=== PATIENT | female | born 1955 | race Caucasian/White ===

== ENCOUNTER → 2023-07-02 07:39 | Outpatient (REF) | payer MEDICARE, OTHER, SELFPAY | LOC: RCS 07:39 | PROVIDERS: ATTENDING PHYSICIAN Internal Medicine Hematology & Oncology; FAMILY PHYSICIAN Physician Assistant Medical | DX: C50.411 Malignant neoplasm of upper-outer quadrant of right female breast (principal); Z85.850 Personal history of malignant neoplasm of thyroid | CPT/HCPCS: 93306; 93356 ==

== ENCOUNTER → 2023-07-03 12:17 | Outpatient (REF) | payer MEDICARE, OTHER, SELFPAY ==
[2023-07-03 12:47] VITALS: BP 152/88; BP_SYST 86
[2023-07-03] MEDS: ANCEF 10 IV (13:21)
[2023-07-03 15:10] VITALS: BP 147/77
== END ==
LOC: RADI 12:17
PROVIDERS: ATTENDING PHYSICIAN Internal Medicine Hematology & Oncology
DX: C50.411 Malignant neoplasm of upper-outer quadrant of right female breast (principal)
CPT/HCPCS: 36561; 76937; 77001; 99152; 99153; C1788

== ENCOUNTER → 2023-07-10 10:49 | Outpatient (REF) | payer MEDICARE, OTHER, SELFPAY ==
[2023-07-10 12:25] LABS: Hematocrit 43.3 % (37.0-47.0); Hemoglobin 14.8 g/dL (12.0-16.0); Mean Corp Hgb Conc. 34.2 g/dL (33.0-37.0); Mean Corpuscular Hgb 29.7 pg (27.0-31.0); Mean Corpuscular Volume 86.9 fL (81.0-99.0); Mean Platelet Volume 11.1 fL (7.4-10.4); Platelet Count 179 10^3/uL (130-400); Red Blood Cell Count 4.98 10^6/uL (4.20-5.40); Red Cell Dist. Width 13.4 % (11.5-14.5); White Blood Cell Count 1.7 10^3/uL (4.8-10.8)
[2023-07-10 12:55] LABS: ALT (SGPT) 15 U/L (0-35); AST (SGOT) 26 U/L (14-36); Albumin 4.5 g/dl (3.5-5.0); Alkaline Phosphatase 96 U/L (38-126); Blood Urea Nitrogen 22 mg/dl (7-17); Calcium 8.9 mg/dl (8.4-10.2); Carbon Dioxide 30 mmol/L (22-30); Chloride 101 mmol/L (98-107); Glucose 97 mg/dl (70-99); Potassium 4.3 mmol/L (3.5-5.1); Sodium 136 mmol/L (135-145); Total Bilirubin 0.9 mg/dl (0.2-1.3); Total Protein 7.3 g/dl (6.3-8.2); eGFR > 60.00
[2023-07-10 13:40] LABS: Absolute Neutrophils -Man Diff 0.4 10^3/uL (1.4-6.5); Band Neutrophils 0 % (0-3); Eosinophils 8 % (0-6); Lymphocytes 52 % (20-51); Metamyelocytes 2 % (-); Monocytes 10 % (2-9); Platelets Checked Yes; Segmented Neutrophils 28 % (42-75)
[2023-07-10 13:41] LABS: Normal RBC Morphology Yes; Total Cells Counted 100
== END ==
LOC: REG 10:49
PROVIDERS: ATTENDING PHYSICIAN Internal Medicine Hematology & Oncology
DX: C50.411 Malignant neoplasm of upper-outer quadrant of right female breast (principal); Z85.850 Personal history of malignant neoplasm of thyroid
CPT/HCPCS: 36415; 80053; 85025

== ENCOUNTER 2023-07-12 17:08 | Emergency (ER) | payer MEDICARE, OTHER, SELFPAY ==
[2023-07-12 17:21] VITALS: BP 139/93
[2023-07-12 18:11] VITALS: BMI 21.3
--- NOTE | 2023-07-12 18:13 | ED.GENMED ---
Addendum entered and electronically signed by Daniel Berman PA-C 07/15/23 07:53:
Pulmonary urine culture shows greater than 100,000 colony-forming units of E. coli. On Keflex. Sensitivities pending
Original Note:
History of Present Illness
General
Chief Complaint: Dehydration Symptoms
Source: patient and family
Time Seen by Provider: 07/12/23 17:45
Travel History
Have you had any contact with someone who has COVID-19?: No
Do you have any symptoms of coronavirus? Fever > 100 degrees, chills, cough, shortness of breath, sore throat, loss of taste or smell, muscle aches, or headache?: No
History of Present Illness
History of Present Illness:
This patient is a 68-year-old female with a recent diagnosis of breast cancer who is currently on chemotherapy, first dose July 04. She has had to go back to the oncology office for IV fluids twice since she got chemotherapy. Most recently this
was yesterday. She does admit to poor p.o. in the. She says that a few days ago she developed diarrhea which is improving, up to 5 times a day at this point. Before she has bowel movement she does have abdominal cramping, otherwise no abdominal
pain. She denies fever, chills, vomiting, shortness of breath, chest pain. She presents today because she feels generally still very weak and worries that she may be dehydrated. She also notes unpleasant taste when she tries to eat and what
worries if she has thrush. She also noted blood in her stool x 2 today, very small amount, no clots. Patient does not take blood thinning medication.
Past History
Past History
ED Past Medical History: Other (Breast cancer, thyroid cancer, Parkinson's)
ED Past Surgical History: Gynecological
Social History
Tobacco: Non-smoker
Alcohol: None
Drug: None
Personal:
Phy Exam
Physical Exam
Physical Exam:
GENERAL: Alert , in no apparent distress
EYE: pupils equal and reactive
NECK: Supple, no significant adenopathy.
ENT: o/p clr, mm dry, no intraoral thrush noted
CARDIAC: Regular rate and rhythm .
LUNGS: Clear breath sounds bilaterally, no acute respiratory distress, no wheezes/rales/rhonchi
ABDOMEN: Soft, without focal tenderness, no r/g, no cvat
NEUROLOGICAL: Alert and oriented, no focal neuro deficits
SKIN: Warm and dry, skin intact.
MUSCULOSKELETAL: No edema, well perfused.
PSYCH: Normal and appropriate interaction.
Rectal no blood noted, heme positive, AGUSTINA tech present
Course
Orders/Labs/Results
Orders:
Orders
07/12/23 18:05
0.9% Sodium Chloride 1000 ml [Nss] 1,000 ml IV BOLUS
07/12/23 18:22
Urinalysis Reflex To Culture Urgent
Date Specimen was Collected: 07/12/23
Time Specimen was Collected: 18:15
Urine Microscopic Reflex Cult Urgent
Urine Culture Urgent
ИРИНА Source: U
Specimen Description:
Date Specimen was Collected: 07/12/23
Time Specimen was Collected: 18:15
07/12/23 19:33
Complete Blood Count/No Diff Urgent
Comprehensive Metabolic Panel Urgent
07/12/23 22:24
Cephalexin Monohydrate [Keflex] 500 mg PO NOW STA
Abnormal Lab Results
07/12/23 07/12/23
18:22 19:33
WBC 46.6 H* 10^3/uL
(4.8-10.8)
Hct 36.6 L %
(37.0-47.0)
MPV 10.5 H fL
(7.4-10.4)
Sodium 132 L mmol/L
(135-145)
BUN 18 H mg/dl
(7-17)
Alkaline Phosphatase 178 H U/L
(38-126)
Total Protein 6.1 L g/dl
(6.3-8.2)
Urine Ketones 3+ A
(Negative)
Ur Occult Blood Reflex 4+ A
(Negative)
Urine Nitrite (Reflex) Positive A
(Negative)
Urine Bilirubin 1+ A
(Negative)
Leukocyte Esterase Rfl 2+ A
(Negative)
Urine RBC 21-25 A /HPF
(0-2)
Urine WBC (Reflex) 11-15 A /HPF
(0-5)
Urine Bacteria (Reflex) Many A
(Negative)
Urine Albumin (Reflex) 3+ A
(Neg - Trace)
07/12/23 19:33
07/12/23 19:33
Vital Signs
Initial and Last Documented VS:
Initial Vital Signs
Temp Pulse Resp BP Pulse Ox
97.9 F 116 20 139/93 97
07/12/23 17:21 07/12/23 17:21 07/12/23 17:21 07/12/23 17:21 07/12/23 17:21
Last Documented Vital Signs
Temp Pulse Resp BP Pulse Ox
97.9 F 106 31 100/66 94
07/12/23 17:21 07/12/23 22:15 07/12/23 22:15 07/12/23 22:00 07/12/23 22:15
*Critical Care Note
Total Time (30-74mins, 75-104mins- exclusive of procedures): Not Applicable
Update Note
Update Note:
Patient presents to the Emergency Department with ___fatigue, blood in stool
Number and Complexity of Problems Addressed at the Encounter
� Chronic conditions affecting care:
� Acute Exacerbation and/or Progression of Chronic Illness:
� Differential Diagnosis includes: But not limited to electrolyte disorder, dehydration, chemotherapy related symptoms, etc.
Amount and/or Complexity of Data to be Reviewed and Analyzed
� I performed an independent evaluation of and my interpretation is:
EKG:
CT:
Xrays:
Laboratory Studies: Elevated white blood cell count appropriate response to recent stimulating agent, no anemia noted
Other: Urinalysis suggestive of UTI culture pending patient and daughter encouraged to check culture result
� Review of other/old records reveals:
� Clinical information was obtained by an independent historian: Daughter
� Prescriptions/Medications Considered but not given:
� Further testing considered but not performed:
Risk of Complications and/or Morbidity or Mortality of Patient Management
� Social determinants of health affecting care:
� Discussion with other providers (PCP, Hospitalists, Consultants, etc):
� Escalation of care including admission/observation vs risk of discharge considered: Case discussed with Dr. Freedman. Of note, status post IV fluids, patient feels significantly better and would like to go home. She denies any
new complaints and has not had any episodes of diarrhea or blood since arrival. Dr. Freedman aware of history physical, labs, etc. Agrees with plan for discharge, recommends outpatient GI follow-up. All discussed with patient, aware of plan and in
agreement. Antibiotics for presumptive UTI ordered.
ED Attending Note
-
Portions of this chart may have been created with voice recognition software.� Occasional wrong word or��sound alike� substitutions may have occurred due to the inherent limitations of voice recognition software.
Discharge Plan
Departure
Patient Disposition: Home (Routine Discharge)
Date of Disposition: 07/12/23
Time of Disposition: 22:25
Patient with high blood pressure during this ER visit?: Yes
Condition: Good
Discharge Problem:
Dehydration, Acute UTI
Instructions: Dehydration, Adult (DC), Urinary Tract Infection, Adult (DC), BLOOD PRESSURE
Prescriptions:
New
cephalexin 500 mg capsule
500 mg PO BID 7 Days Qty: 14 0RF
No Action
simvastatin 40 mg Tablet
40 mg PO HS
levothyroxine 75 mcg Tablet
75 mcg PO DAILY@0000
losartan 25 mg Tablet
25 mg PO HS
rasagiline 1 mg Tablet
1 mg PO HS
Rytary 36.25-145 mg Capsule, Extended Release
1 cap PO TID
loperamide [Imodium] 2 mg Capsule
2 mg PO DIRECTED
Patient Comments:
07/12/2023, per pt., she takes 2 capsules at the onset of loose stool and then takes one capsule Q2H up to 12 capsules (24 mg) daily. Pt. states she was told to take this med. this way per her chemo. treatment facility.
ondansetron 8 mg Tablet,Disintegrating
8 mg PO Q8H PRN (Reason: nausea/vomiting)
dexamethasone 4 mg Tablet
4 mg PO DIRECTED
Rx Instructions:
07/12/2023, take one tablet 2 days before, 2 days of, and 2 days after chemo treatment.
Referrals:
Abigail Hernández PA-C [Family Provider] -
Magalie Dangelo MD [Active] - Next open appointment
Evan Freedman MD [Active] - Follow up in 2-3 days
Activity Restrictions/Additional Instructions:
IF YOU DEVELOP ABDOMINAL PAIN, PERSISTENT BLEEDING, ANY FEVER, VOMITING, DIZZINESS, CHEST PAIN, TROUBLE BREATHING, OR OTHER WORRISOME SIGNS, GO TO THE ER IMMEDIATELY!
Interventions
Interventions:
*Risk Screen - Suicide Last Done: 07/12/23 18:12
*General Assessment Last Done: 07/12/23 18:12
*Neglect/Abuse Screening Last Done: 07/12/23 18:12
ED- Fall Risk Assessment Last Done: 07/12/23 18:36
*ED COVID-19 Vaccine History Last Done: 07/12/23 18:12
ED- Cardiac Assessment Last Done: 07/12/23 18:36
ED- Neurological Assessment Last Done: 07/12/23 18:36
ED- Pulmonary Assessment Last Done: 07/12/23 18:36
[2023-07-12 18:20] VITALS: BP 147/84
[2023-07-12 18:31] LABS: Urine Albumin 3+ (Neg - Trace); Urine Bilirubin 1+ (Negative); Urine Character Very Cloudy (Clear); Urine Color Yellow; Urine Glucose Negative (Negative); Urine Ketone 3+ (Negative); Urine Leukocyte 2+ (Negative); Urine Nitrite Positive (Negative); Urine Occult Blood 4+ (Negative); Urine Urobilinogen Negative (Neg - 1+)
[2023-07-12 18:44] LABS: Urine Bacteria Many (Negative); Urine Red Blood Cell 21-25 /HPF (0-2)
[2023-07-12 19:00] VITALS: BP 137/77
[2023-07-12 19:34] LABS: Hematocrit 36.6 % (37.0-47.0); Hemoglobin 12.8 g/dL (12.0-16.0); Mean Corpuscular Hgb 29.4 pg (27.0-31.0); Mean Corpuscular Volume 84.1 fL (81.0-99.0); Mean Platelet Volume 10.5 fL (7.4-10.4); Platelet Count 190 10^3/uL (130-400); Red Blood Cell Count 4.35 10^6/uL (4.20-5.40); Red Cell Dist. Width 13.8 % (11.5-14.5)
[2023-07-12] MEDS: NSS 1000 IV (19:42)
[2023-07-12 19:51] LABS: ALT (SGPT) 27 U/L (0-35); AST (SGOT) 30 U/L (14-36); Albumin 3.7 g/dl (3.5-5.0); Alkaline Phosphatase 178 U/L (38-126); Blood Urea Nitrogen 18 mg/dl (7-17); Calcium 8.8 mg/dl (8.4-10.2); Carbon Dioxide 26 mmol/L (22-30); Chloride 99 mmol/L (98-107); Estimated Creatinine Clearance 72 ml/min; Glucose 91 mg/dl (70-99); Potassium 3.8 mmol/L (3.5-5.1); Sodium 132 mmol/L (135-145); Total Bilirubin 0.6 mg/dl (0.2-1.3); Total Protein 6.1 g/dl (6.3-8.2); eGFR > 60.00
[2023-07-12 20:00] VITALS: BP 145/84
[2023-07-12 20:08] LABS: White Blood Cell Count 46.6 10^3/uL (4.8-10.8)
[2023-07-12 21:00] VITALS: BP 150/85
[2023-07-12 22:00] VITALS: BP 100/66
[2023-07-12] MEDS: KEFLEX 500 MG PO (22:37)
== END 2023-07-12 22:41 | disposition home or self-care (01) ==
LOC: EMR 17:08
PROVIDERS: EMERGENCY PHYSICIAN Emergency Medicine; FAMILY PHYSICIAN Physician Assistant Medical
DX: N39.0 Urinary tract infection, site not specified (principal); E86.0 Dehydration
CPT/HCPCS: 99284; 80053; 81003; 81015; 85027; 87086; 87088; 87186

== ENCOUNTER → 2023-07-23 09:50 | Outpatient (REF) | payer MEDICARE, OTHER, SELFPAY ==
[2023-07-23 10:15] LABS: % Basophils 0.3 % (0-2); % Immature Granulocytes 4.3 % (0-0.5); % Lymphocytes 6.6 % (20.5-51.1); % Monocytes 3.4 % (1.7-9.3); % Neutrophils 85.4 % (42.2-75.2); Absolute Basophils 0.1 10^3/uL (0-0.2); Absolute Immature Granulocytes 1.4 10^3/uL (0-0.05); Absolute Lymphocytes 2.1 10^3/uL (1.2-3.4); Absolute Monocytes 1.1 10^3/uL (0.1-0.6); Absolute Neutrophils 26.8 10^3/uL (1.4-6.5); Hematocrit 35.7 % (37.0-47.0); Hemoglobin 12.1 g/dL (12.0-16.0); Mean Corp Hgb Conc. 33.9 g/dL (33.0-37.0); Mean Corpuscular Hgb 29.4 pg (27.0-31.0); Mean Corpuscular Volume 86.7 fL (81.0-99.0); Mean Platelet Volume 10.1 fL (7.4-10.4); Nucleated Red Blood Cells % 0.1 %; Platelet Count 221 10^3/uL (130-400); Red Blood Cell Count 4.12 10^6/uL (4.20-5.40); Red Cell Dist. Width 15.1 % (11.5-14.5); White Blood Cell Count 31.4 10^3/uL (4.8-10.8)
== END ==
LOC: REG 09:50
PROVIDERS: ATTENDING PHYSICIAN Internal Medicine Hematology & Oncology; FAMILY PHYSICIAN Physician Assistant Medical
DX: C50.411 Malignant neoplasm of upper-outer quadrant of right female breast (principal); Z85.850 Personal history of malignant neoplasm of thyroid
CPT/HCPCS: 36415; 85025

== ENCOUNTER → 2023-07-24 14:21 | Outpatient (REF) | payer MEDICARE, OTHER, SELFPAY ==
[2023-07-24 15:08] LABS: ALT (SGPT) 11 U/L (0-35); AST (SGOT) 31 U/L (14-36); Albumin 4.2 g/dl (3.5-5.0); Alkaline Phosphatase 150 U/L (38-126); Blood Urea Nitrogen 27 mg/dl (7-17); Calcium 9.5 mg/dl (8.4-10.2); Carbon Dioxide 32 mmol/L (22-30); Chloride 99 mmol/L (98-107); Glucose 119 mg/dl (70-99); Sodium 140 mmol/L (135-145); Total Bilirubin 0.5 mg/dl (0.2-1.3); Total Protein 7.2 g/dl (6.3-8.2); eGFR > 60.00
== END ==
LOC: REG 14:21
PROVIDERS: ATTENDING PHYSICIAN Internal Medicine Hematology & Oncology; FAMILY PHYSICIAN Physician Assistant Medical
DX: C50.411 Malignant neoplasm of upper-outer quadrant of right female breast (principal); Z85.850 Personal history of malignant neoplasm of thyroid
CPT/HCPCS: 36415; 80053

== ENCOUNTER → 2023-07-30 08:07 | Outpatient (REF) | payer MEDICARE, OTHER, SELFPAY | LOC: DHCBC/DCA 08:07 | PROVIDERS: ATTENDING PHYSICIAN Internal Medicine Cardiovascular Disease; FAMILY PHYSICIAN Physician Assistant Medical | DX: R94.31 Abnormal electrocardiogram [ECG] [EKG] (principal); R06.09 Other forms of dyspnea | CPT/HCPCS: 78452; 93017; A9500; J2785 ==

== ENCOUNTER 2023-08-03 17:13 | Emergency (ER) | payer MEDICARE, OTHER, SELFPAY ==
[2023-08-03 17:22] VITALS: BP 144/100
[2023-08-03 17:37] VITALS: BP 154/81
[2023-08-03 18:00] VITALS: BP 143/78
[2023-08-03] MEDS: ZOFRAN 4 MG IV (18:32)
[2023-08-03] MEDS: NSS 1000 IV (18:32)
[2023-08-03 18:38] LABS: Hematocrit 32.7 % (37.0-47.0); Hemoglobin 11.8 g/dL (12.0-16.0); Mean Corp Hgb Conc. 36.1 g/dL (33.0-37.0); Mean Corpuscular Hgb 30.1 pg (27.0-31.0); Mean Corpuscular Volume 83.4 fL (81.0-99.0); Mean Platelet Volume 9.9 fL (7.4-10.4); Platelet Count 175 10^3/uL (130-400); Red Blood Cell Count 3.92 10^6/uL (4.20-5.40); Red Cell Dist. Width 15.6 % (11.5-14.5)
[2023-08-03 18:50] LABS: ALT (SGPT) 27 U/L (0-35); AST (SGOT) 21 U/L (14-36); Albumin 3.9 g/dl (3.5-5.0); Alkaline Phosphatase 246 U/L (38-126); Blood Urea Nitrogen 16 mg/dl (7-17); Carbon Dioxide 31 mmol/L (22-30); Chloride 94 mmol/L (98-107); Glucose 129 mg/dl (70-99); Sodium 134 mmol/L (135-145); Total Bilirubin 0.6 mg/dl (0.2-1.3); Total Protein 6.2 g/dl (6.3-8.2); eGFR > 60.00
[2023-08-03 18:58] LABS: White Blood Cell Count 52.5 10^3/uL (4.8-10.8)
[2023-08-03 19:00] VITALS: BP 148/78
[2023-08-03 19:15] LABS: Absolute Neutrophils -Man Diff 44.6 10^3/uL (1.4-6.5); Band Neutrophils 17 % (0-3); Lymphocytes 3 % (20-51); Metamyelocytes 1 % (-); Monocytes 6 % (2-9); Myelocytes 5 % (-); Segmented Neutrophils 68 % (42-75)
[2023-08-03 19:16] LABS: Normal RBC Morphology Yes; Platelets Checked Yes; Total Cells Counted 100
--- NOTE | 2023-08-03 19:42 | ED.GENMED ---
History of Present Illness
<Antonella Frazier NP - Last Filed: 08/07/23 00:17>
General
Chief Complaint: Fatigue
Source: patient
Exam Limitations: none
Time Seen by Provider: 08/03/23 17:34
Nursing documentation reviewed up to this point in time: agreed with
Travel History
Have you had any contact with someone who has COVID-19?: No
Do you have any symptoms of coronavirus? Fever > 100 degrees, chills, cough, shortness of breath, sore throat, loss of taste or smell, muscle aches, or headache?: No
History of Present Illness
History of Present Illness:
Patient to ED wtih complaint of increased weakness, nausea, poor appetite. She is currently receiveing treatment for breast cancer. SHe had her first chemo infusion in June. After infusion she came to ED with same symmptoms as today. She was
treated with IVF and states she felt better initially. SHe was also diagnosed with UTI and antibiotics were prescribed. She had her 2nd chemo tx on 07/25/2023. This time she was brought back to infusion center 3 additional days during that week for
an infusion of NSS with hopes of preventing her symptms of weakness and nausea. SHe as also given neupogen. SHe states she does not feel any improvement and in fact feels exactly as she did after her first infusion. She is scheduled to follow up
with oncology next week to discuss adjusting her current chemo regime. She denies fever/chills. No vomiting or diarrhea. Brought to ED by friend for eval.
Past History
<Antonella Frazier NP - Last Filed: 08/07/23 00:17>
Past History
ED Past Medical History: Other (Breast cancer, thyroid cancer, Parkinson's)
ED Past Surgical History: Gynecological
Social History
Tobacco: Non-smoker
Alcohol: None
Drug: None
Personal:
Review of Systems
<Antonella Frazier NP - Last Filed: 08/07/23 00:17>
Review of Systems
Allergies reviewed?: Yes
All Other Systems: ROS reviewed and negative except as documented in HPI and ROS
Constitutional: Reports fatigue
EENT: Reports no symptoms
Respiratory: Reports no symptoms
Cardiac: Reports no symptoms
ABD/GI: Reports anorexia
: Reports no symptoms
Musculoskeletal: Reports no symptoms
Skin: Reports no symptoms
Neurological: Reports weakness
Psychiatric: Reports no symptoms
Phy Exam
<Antonella Frazier ELECTRIC APPLIANCE INSTALLER - Last Filed: 08/07/23 00:17>
General Physical Exam
General Presentation: no apparent distress
General age: appears stated age
General Skin: warm and dry
General Habitus: normal
General Mental: alert
Cardiovascular Exam
Cardiovascular Exam: regular rate/rhythm and no edema
Pulmonary Exam
Pulmonary Exam: lungs clear and no respiratory distress
Gastrointestinal Exam
Gastrointestinal Exam: normal bowel sounds and non tender
Musculoskeletal Exam
Musculoskeletal Exam: full ROM and neuro vasc intact
Skin Exam
Skin Exam: normal color, warm/dry and no rash
Psychiatric Exam
Psychiatric Exam: normal mood/affect
Course
<Antonella Frazier ELECTRIC APPLIANCE INSTALLER - Last Filed: 08/07/23 00:17>
Orders/Labs/Results
Orders:
Orders
08/03/23 17:48
0.9% Sodium Chloride 1000 ml [Nss] 1,000 ml IV BOLUS
Ondansetron Injectable [Zofran] 4 mg IV NOW STA
08/03/23 18:27
Complete Blood Count/With Diff Urgent
Comprehensive Metabolic Panel Urgent
Manual Differential Urgent
08/03/23 19:45
Urinalysis Reflex To Culture Urgent
Date Specimen was Collected: 08/03/23
Time Specimen was Collected: 19:43
Urine Microscopic Reflex Cult Urgent
Urine Culture Urgent
ИРИНА Source: U
Specimen Description:
Date Specimen was Collected: 08/03/23
Time Specimen was Collected: 19:43
08/03/23 20:44
Heparin Pf [Heparin Lock Flush] 500 unit .ROUTE .STK-MED ONE
08/03/23 20:49
Fosfomycin [Monurol] 3 gm PO ONCE ONE
08/03/23 21:03
Heparin Pf [Heparin Lock Flush] 500 unit IV NOW ONE
08/03/23 21:04
Potassium Chloride [KCl] 40 meq PO NOW STA
Abnormal Lab Results
08/03/23 08/03/23
18:27 19:45
WBC 52.5 H* 10^3/uL
(4.8-10.8)
RBC 3.92 L 10^6/uL
(4.20-5.40)
Hgb 11.8 L g/dL
(12.0-16.0)
Hct 32.7 L %
(37.0-47.0)
RDW 15.6 H %
(11.5-14.5)
Abs Neuts (Manual) 44.6 H 10^3/uL
(1.4-6.5)
Band Neutrophils 17 H %
(0-3)
Lymphocytes (Manual) 3 L %
(20-51)
Sodium 134 L mmol/L
(135-145)
Potassium 3.0 L mmol/L
(3.5-5.1)
Chloride 94 L mmol/L
(98-107)
Carbon Dioxide 31 H mmol/L
(22-30)
Creatinine 0.5 L mg/dL
(0.6-1.0)
Glucose 129 H mg/dl
(70-99)
Alkaline Phosphatase 246 H U/L
(38-126)
Total Protein 6.2 L g/dl
(6.3-8.2)
Urine Ketones 2+ A
(Negative)
Ur Occult Blood Reflex 3+ A
(Negative)
Urine Nitrite (Reflex) Positive A
(Negative)
Leukocyte Esterase Rfl 2+ A
(Negative)
Urine RBC 7-10 A /HPF
(0-2)
Urine WBC (Reflex) 70-80 A /HPF
(0-5)
Urine Bacteria (Reflex) Many A
(Negative)
Urine Albumin (Reflex) 2+ A
(Neg - Trace)
08/03/23 18:27
08/03/23 18:27
Vital Signs
Initial and Last Documented VS:
Initial Vital Signs
Temp Pulse Resp BP Pulse Ox
98.4 F 120 18 144/100 97
08/03/23 17:22 08/03/23 17:22 08/03/23 17:22 08/03/23 17:22 08/03/23 17:22
Last Documented Vital Signs
Temp Pulse Resp BP Pulse Ox
98.4 F 104 28 148/75 96
08/03/23 17:22 08/03/23 20:45 08/03/23 20:45 08/03/23 20:43 08/03/23 18:30
Claudelt;Silvino Orozco, DO - Last Filed: 08/03/23 20:52>
Orders/Labs/Results
Orders:
Orders
08/03/23 17:48
0.9% Sodium Chloride 1000 ml [Nss] 1,000 ml IV BOLUS
Ondansetron Injectable [Zofran] 4 mg IV NOW STA
08/03/23 18:27
Complete Blood Count/With Diff Urgent
Comprehensive Metabolic Panel Urgent
Manual Differential Urgent
08/03/23 19:45
Urinalysis Reflex To Culture Urgent
Date Specimen was Collected: 08/03/23
Time Specimen was Collected: 19:43
Urine Microscopic Reflex Cult Urgent
Urine Culture Urgent
ИРИНА Source: U
Specimen Description:
Date Specimen was Collected: 08/03/23
Time Specimen was Collected: 19:43
08/03/23 20:44
Heparin Pf [Heparin Lock Flush] 500 unit .ROUTE .STK-MED ONE
08/03/23 20:49
Fosfomycin [Monurol] 3 gm PO ONCE ONE
08/03/23 21:03
Heparin Pf [Heparin Lock Flush] 500 unit IV NOW ONE
08/03/23 21:04
Potassium Chloride [KCl] 40 meq PO NOW STA
Abnormal Lab Results
08/03/23 08/03/23
18:27 19:45
WBC 52.5 H* 10^3/uL
(4.8-10.8)
RBC 3.92 L 10^6/uL
(4.20-5.40)
Hgb 11.8 L g/dL
(12.0-16.0)
Hct 32.7 L %
(37.0-47.0)
RDW 15.6 H %
(11.5-14.5)
Abs Neuts (Manual) 44.6 H 10^3/uL
(1.4-6.5)
Band Neutrophils 17 H %
(0-3)
Lymphocytes (Manual) 3 L %
(20-51)
Sodium 134 L mmol/L
(135-145)
Potassium 3.0 L mmol/L
(3.5-5.1)
Chloride 94 L mmol/L
(98-107)
Carbon Dioxide 31 H mmol/L
(22-30)
Creatinine 0.5 L mg/dL
(0.6-1.0)
Glucose 129 H mg/dl
(70-99)
Alkaline Phosphatase 246 H U/L
(38-126)
Total Protein 6.2 L g/dl
(6.3-8.2)
Urine Ketones 2+ A
(Negative)
Ur Occult Blood Reflex 3+ A
(Negative)
Urine Nitrite (Reflex) Positive A
(Negative)
Leukocyte Esterase Rfl 2+ A
(Negative)
Urine RBC 7-10 A /HPF
(0-2)
Urine WBC (Reflex) 70-80 A /HPF
(0-5)
Urine Bacteria (Reflex) Many A
(Negative)
Urine Albumin (Reflex) 2+ A
(Neg - Trace)
08/03/23 18:27
08/03/23 18:27
Vital Signs
Initial and Last Documented VS:
Initial Vital Signs
Temp Pulse Resp BP Pulse Ox
98.4 F 120 18 144/100 97
08/03/23 17:22 08/03/23 17:22 08/03/23 17:22 08/03/23 17:22 08/03/23 17:22
Last Documented Vital Signs
Temp Pulse Resp BP Pulse Ox
98.4 F 104 28 148/75 96
08/03/23 17:22 08/03/23 20:45 08/03/23 20:45 08/03/23 20:43 08/03/23 18:30
Claudelt;Daniel Berman PA-C - Last Filed: 08/06/23 08:01>
Orders/Labs/Results
Orders:
Orders
08/03/23 17:48
0.9% Sodium Chloride 1000 ml [Nss] 1,000 ml IV BOLUS
Ondansetron Injectable [Zofran] 4 mg IV NOW STA
08/03/23 18:27
Complete Blood Count/With Diff Urgent
Comprehensive Metabolic Panel Urgent
Manual Differential Urgent
08/03/23 19:45
Urinalysis Reflex To Culture Urgent
Date Specimen was Collected: 08/03/23
Time Specimen was Collected: 19:43
Urine Microscopic Reflex Cult Urgent
Urine Culture Urgent
ИРИНА Source: U
Specimen Description:
Date Specimen was Collected: 08/03/23
Time Specimen was Collected: 19:43
08/03/23 20:44
Heparin Pf [Heparin Lock Flush] 500 unit .ROUTE .STK-MED ONE
08/03/23 20:49
Fosfomycin [Monurol] 3 gm PO ONCE ONE
08/03/23 21:03
Heparin Pf [Heparin Lock Flush] 500 unit IV NOW ONE
08/03/23 21:04
Potassium Chloride [KCl] 40 meq PO NOW STA
Abnormal Lab Results
08/03/23 08/03/23
18:27 19:45
WBC 52.5 H* 10^3/uL
(4.8-10.8)
RBC 3.92 L 10^6/uL
(4.20-5.40)
Hgb 11.8 L g/dL
(12.0-16.0)
Hct 32.7 L %
(37.0-47.0)
RDW 15.6 H %
(11.5-14.5)
Abs Neuts (Manual) 44.6 H 10^3/uL
(1.4-6.5)
Band Neutrophils 17 H %
(0-3)
Lymphocytes (Manual) 3 L %
(20-51)
Sodium 134 L mmol/L
(135-145)
Potassium 3.0 L mmol/L
(3.5-5.1)
Chloride 94 L mmol/L
(98-107)
Carbon Dioxide 31 H mmol/L
(22-30)
Creatinine 0.5 L mg/dL
(0.6-1.0)
Glucose 129 H mg/dl
(70-99)
Alkaline Phosphatase 246 H U/L
(38-126)
Total Protein 6.2 L g/dl
(6.3-8.2)
Urine Ketones 2+ A
(Negative)
Ur Occult Blood Reflex 3+ A
(Negative)
Urine Nitrite (Reflex) Positive A
(Negative)
Leukocyte Esterase Rfl 2+ A
(Negative)
Urine RBC 7-10 A /HPF
(0-2)
Urine WBC (Reflex) 70-80 A /HPF
(0-5)
Urine Bacteria (Reflex) Many A
(Negative)
Urine Albumin (Reflex) 2+ A
(Neg - Trace)
08/03/23 18:27
08/03/23 18:27
Vital Signs
Initial and Last Documented VS:
Initial Vital Signs
Temp Pulse Resp BP Pulse Ox
98.4 F 120 18 144/100 97
08/03/23 17:22 08/03/23 17:22 08/03/23 17:22 08/03/23 17:22 08/03/23 17:22
Last Documented Vital Signs
Temp Pulse Resp BP Pulse Ox
98.4 F 104 28 148/75 96
08/03/23 17:22 08/03/23 20:45 08/03/23 20:45 08/03/23 20:43 08/03/23 18:30
<Antonella Frazier NP - Last Filed: 08/07/23 00:17>
*Critical Care Note
Total Time (30-74mins, 75-104mins- exclusive of procedures): Not Applicable
<Daniel Berman PA-C - Last Filed: 08/06/23 08:01>
Update Note
Update Note:
August 05 8 AM. Urine culture demonstrates greater than 100,000 colony-forming units of E. coli. She was given fosfomycin at the time of the visit. Sensitivities are pending
ED Attending Note
<Antonella Frazier ELECTRIC APPLIANCE INSTALLER - Last Filed: 08/07/23 00:17>
-
Portions of this chart may have been created with voice recognition software.� Occasional wrong word or��sound alike� substitutions may have occurred due to the inherent limitations of voice recognition software.
<Silvino Orozco DO - Last Filed: 08/03/23 20:52>
ED Attending Note
Patient seen and examined by attending physician: Yes
I performed the substantive portion of visit, reviewed & personally made and approve the management plan that is documented in note by myself or MIA.: Yes
ED Attending Note:
Seen with ELECTRIC APPLIANCE INSTALLER examined independently agree with assessment plan oncology patient with fatigue feeling better after antibiotics and fluids, white count noted did receive Neupogen and Neulasta x 2
Discharge Plan
Departure
Patient Disposition: Home (Routine Discharge)
Date of Disposition: 08/03/23
Time of Disposition: 20:52
Patient with high blood pressure during this ER visit?: No
Condition: Good
Covid-19: Not Applicable
Discharge Problem:
UTI (urinary tract infection)
Instructions: Urinary Tract Infection, Adult (DC)
Prescriptions:
No Action
simvastatin 40 mg Tablet
40 mg PO HS
levothyroxine 75 mcg Tablet
75 mcg PO DAILY
losartan 25 mg Tablet
25 mg PO HS
rasagiline 1 mg Tablet
1 mg PO HS
Rytary 36.25-145 mg Capsule, Extended Release
1 cap PO TID
loperamide [Imodium] 2 mg Capsule
2 mg PO BIDPRN PRN (Reason: diarrhea)
ondansetron 8 mg Tablet,Disintegrating
8 mg PO Q8HPRN PRN (Reason: nausea/vomiting)
dexamethasone 4 mg Tablet
4 mg PO DIRECTED
Rx Instructions:
take one tablet 2 tablets 1 days before, 2 tablets then day of, and 2 tablets the day after chemo treatment.
acetaminophen [Tylenol] 325 mg Tablet
650 mg PO Q6HPRN PRN (Reason: mild pain)
Referrals:
Abigail Hernández PA-C [Family Provider] - Follow up in 2-3 days
Activity Restrictions/Additional Instructions:
Follow up with your oncologist
Interventions
Interventions:
*Risk Screen - Suicide Last Done: 08/03/23 17:41
*General Assessment Last Done: 08/03/23 17:22
*Neglect/Abuse Screening Last Done: 08/03/23 17:41
ED- Fall Risk Assessment Last Done: 08/03/23 21:14
*ED COVID-19 Vaccine History Last Done: 08/03/23 17:22
*Nursing Disposition Last Done: 08/03/23 21:14
Discharge Date and Time
Discharge Date/Time: 08/03/23 21:25
[2023-08-03 19:51] LABS: Urine Albumin 2+ (Neg - Trace); Urine Bilirubin Negative (Negative); Urine Character Slightly Cloudy (Clear); Urine Color Yellow; Urine Glucose Negative (Negative); Urine Ketone 2+ (Negative); Urine Leukocyte 2+ (Negative); Urine Nitrite Positive (Negative); Urine Occult Blood 3+ (Negative); Urine Specific Gravity 1.015 (<1.030); Urine Urobilinogen Negative (Neg - 1+)
[2023-08-03 20:08] LABS: Urine Bacteria Many (Negative); Urine White Cell 70-80 /HPF (0-5)
[2023-08-03 20:43] VITALS: BP 148/75
[2023-08-03] MEDS: MONUROL 3 GM PO (21:06)
[2023-08-03] MEDS: KCL 40 MEQ PO (21:07)
[2023-08-03 21:09] VITALS: BMI 21.1
== END 2023-08-03 21:25 | disposition home or self-care (01) ==
LOC: EMR 17:13
PROVIDERS: Nurse Practitioner; EMERGENCY PHYSICIAN Emergency Medicine; FAMILY PHYSICIAN Physician Assistant Medical
DX: N39.0 Urinary tract infection, site not specified (principal); C50.919 Malignant neoplasm of unspecified site of unspecified female breast
CPT/HCPCS: 99284; 96374; 96375; 96361; 80053; 81003; 81015; 85025; 87086; 87088; 87186

== ENCOUNTER 2023-08-04 13:51 | Emergency (ER) | payer MEDICARE, OTHER, SELFPAY ==
[2023-08-04 13:56] VITALS: BP 133/86
--- NOTE | 2023-08-04 14:37 | ED.GENMED ---
History of Present Illness
General
Chief Complaint: Fatigue
Time Seen by Provider: 08/04/23 14:36
Travel History
Have you had any contact with someone who has COVID-19?: No
Do you have any symptoms of coronavirus? Fever > 100 degrees, chills, cough, shortness of breath, sore throat, loss of taste or smell, muscle aches, or headache?: No
History of Present Illness
History of Present Illness:
HPI: Patient presents due to fatigue and was here yesterday for the same complaint. Patient is on chemo for breast cancer. When she was here in June she felt improved with fluids however yesterday she did not feel all that much better after IV
fluids were given. She has no dysuria but did have a questionably abnormal urine culture in the past and was given a dose of fosfomycin yesterday. After she came home yesterday she vomited.
EXAM:
GENERAL: Hair loss noted, appears generally weak and debilitated
HEENT: Moist oral mucosa
CARDIOVASCULAR: No murmurs, tachycardia heart rate and rhythm, No chest wall tenderness
PULMONARY: No respiratory distress, breath sounds are clear and equal
ABDOMEN: Soft with no peritoneal signs, no tenderness
NEUROLOGIC: Excellent strength all extremities, no coordination deficits
PSYCHIATRIC: Appropriate mental status, normal insight and judgement
EXTREMITIES: Nontender, no edema, moves all extremities equally
SKIN: No rash, no lesions
ED COURSE:
2:45 PM: I initially evaluated patient
NUMBER AND COMPLEXITY OF PROBLEMS ADDRESSED AT THE ENCOUNTER
� Chronic conditions affecting care: High blood pressure, hyperlipidemia, Parkinson, breast cancer, medullary thyroid cancer
� Acute Exacerbation and/or Progression of Chronic Illness: This is a subacute problem since chemo
� Differential Diagnosis includes: Chemo induced nausea and weakness, failure to thrive, hypokalemia, anemia, thyroid related disease
AMOUNT AND/OR COMPLEXITY OF DATA TO BE REVIEWED AND ANALYZED
� I performed an independent evaluation of and my interpretation is:
EKG:
CT:
X-rays:
Laboratory Studies: Leukocytosis again noted likely related to Neupogen but similar to yesterday, potassium slightly low at 3.3, TSH high but free T4 normal
Other:
� Review of other/old records: Yesterday, white count was 52.5 and hemoglobin was 11.8, had stress test 3 days ago which was inconclusive EKG for ischemia but had normal nuclear imaging, nuclear imaging, felt to be 'moderate
risk'. Urine culture from last month was resistant to Ancef/Augmentin
� Clinical information was obtained by an independent historian: Spoke to the at bedside
� Prescriptions/Medications Considered but not given:
� Further testing considered but not performed:
RISK OF COMPLICATIONS AND/OR MORBIDITY OR MORTALITY OF PATIENT MANAGEMENT
� Social determinants of health affecting care: Lives at home
� Discussion with other providers:
� Escalation of care including admission/observation vs risk of discharge considered: TSH is elevated. She states that she is on levothyroxine 75 mcg daily. She has an rehab tech at [facility] to follow-up with. On reassessment
at 5 PM, she feels significantly improved after IV fluids were given. I did call them later to discuss the free T4 level being normal.
Past History
Past History
ED Past Medical History: Other (Breast cancer, thyroid cancer, Parkinson's)
ED Past Surgical History: Gynecological
Social History
Tobacco: Non-smoker
Alcohol: None
Drug: None
Personal:
Phy Exam
Physical Exam
Physical Exam:
See HPI
Course
Orders/Labs/Results
Orders:
Orders
08/04/23 14:37
CMP [Comprehensive Metabolic Panel] Urgent
Complete Blood Count/With Diff Urgent
Free T4 Urgent
Manual Differential Urgent
TSH Reflex To Free T4 Urgent
Comment: ADD ON
08/04/23 14:41
0.9% Sodium Chloride 1000 ml [Nss] 1,000 ml IV BOLUS
08/04/23 14:43
Add On- LAB Urgent
Tests Added?: tsh free ft4
Abnormal Lab Results
08/04/23
14:37
WBC 54.5 H* 10^3/uL
(4.8-10.8)
RBC 3.81 L 10^6/uL
(4.20-5.40)
Hgb 11.2 L g/dL
(12.0-16.0)
Hct 32.6 L %
(37.0-47.0)
RDW 15.9 H %
(11.5-14.5)
Abs Neuts (Manual) 51.7 H 10^3/uL
(1.4-6.5)
Segmented Neutrophils 80 H %
(42-75)
Band Neutrophils 15 H %
(0-3)
Lymphocytes (Manual) 3 L %
(20-51)
Monocytes (Manual) 1 L %
(2-9)
Sodium 131 L mmol/L
(135-145)
Potassium 3.3 L mmol/L
(3.5-5.1)
Creatinine 0.5 L mg/dL
(0.6-1.0)
Glucose 123 H mg/dl
(70-99)
Alkaline Phosphatase 306 H U/L
(38-126)
Total Protein 5.9 L g/dl
(6.3-8.2)
TSH (Reflex) 8.67 H uIU/ml
(0.47-4.68)
08/04/23 14:37
08/04/23 14:37
Vital Signs
Initial and Last Documented VS:
Initial Vital Signs
Temp Pulse Resp BP Pulse Ox
98.0 F 112 16 133/86 98
08/04/23 13:56 08/04/23 13:56 08/04/23 13:56 08/04/23 13:56 08/04/23 13:56
Last Documented Vital Signs
Temp Pulse Resp BP Pulse Ox
98.0 F 102 16 154/78 99
08/04/23 13:56 08/04/23 17:16 08/04/23 17:16 08/04/23 17:16 08/04/23 17:16
*Critical Care Note
Total Time (30-74mins, 75-104mins- exclusive of procedures): Not Applicable
ED Attending Note
-
Portions of this chart may have been created with voice recognition software.� Occasional wrong word or��sound alike� substitutions may have occurred due to the inherent limitations of voice recognition software.
Discharge Plan
Departure
Patient Disposition: Home (Routine Discharge)
Date of Disposition: 08/04/23
Time of Disposition: 17:05
Patient with high blood pressure during this ER visit?: Yes
Discharge Problem:
Weakness
Instructions: Generalized Weakness (DC)
Prescriptions:
No Action
simvastatin 40 mg Tablet
40 mg PO HS
levothyroxine 75 mcg Tablet
75 mcg PO DAILY
losartan 25 mg Tablet
25 mg PO HS
rasagiline 1 mg Tablet
1 mg PO HS
Rytary 36.25-145 mg Capsule, Extended Release
1 cap PO TID
loperamide [Imodium] 2 mg Capsule
2 mg PO BIDPRN PRN (Reason: diarrhea)
ondansetron 8 mg Tablet,Disintegrating
8 mg PO Q8HPRN PRN (Reason: nausea/vomiting)
dexamethasone 4 mg Tablet
4 mg PO DIRECTED
Rx Instructions:
take one tablet 2 tablets 1 days before, 2 tablets then day of, and 2 tablets the day after chemo treatment.
acetaminophen [Tylenol] 325 mg Tablet
650 mg PO Q6HPRN PRN (Reason: mild pain)
Referrals:
Abigail Hernández PA-C [Family Provider] -
Activity Restrictions/Additional Instructions:
Your white count is very high at 54.5 which is very similar to what it was the other day which is likely due to receiving Neupogen recently. Your potassium was just slightly low at 3.3 but this should not be low enough to cause such weakness. You
could try increasing foods that are high in potassium such as bananas, potatoes, tomatoes. Kidney function is normal. The screening test for your thyroid called a TSH is high at 8.6 (normal range is 0.47-4.68). A free T4 level is pending. I
recommend that you follow-up with your rehab tech at [facility] in case they want to make any adjustments to your Synthroid dosing.
Interventions
Interventions:
*Risk Screen - Suicide Last Done: 08/04/23 14:55
*General Assessment Last Done: 08/04/23 14:55
*Neglect/Abuse Screening Last Done: 08/04/23 14:55
ED- Fall Risk Assessment Last Done: 08/04/23 14:55
*ED COVID-19 Vaccine History Last Done: 08/04/23 13:56
*Nursing Disposition Last Done: 08/04/23 17:20
Discharge Date and Time
Discharge Date/Time: 08/04/23 17:25
[2023-08-04] MEDS: NSS 1000 IV (14:41)
[2023-08-04 14:50] LABS: Hematocrit 32.6 % (37.0-47.0); Hemoglobin 11.2 g/dL (12.0-16.0); Mean Corp Hgb Conc. 34.4 g/dL (33.0-37.0); Mean Corpuscular Hgb 29.4 pg (27.0-31.0); Mean Corpuscular Volume 85.6 fL (81.0-99.0); Mean Platelet Volume 9.6 fL (7.4-10.4); Platelet Count 146 10^3/uL (130-400); Red Blood Cell Count 3.81 10^6/uL (4.20-5.40); Red Cell Dist. Width 15.9 % (11.5-14.5)
[2023-08-04 14:52] LABS: White Blood Cell Count 54.5 10^3/uL (4.8-10.8)
[2023-08-04 14:55] VITALS: BMI 21.4
[2023-08-04 15:05] LABS: ALT (SGPT) 15 U/L (0-35); AST (SGOT) 23 U/L (14-36); Albumin 3.6 g/dl (3.5-5.0); Alkaline Phosphatase 306 U/L (38-126); Blood Urea Nitrogen 14 mg/dl (7-17); Calcium 8.5 mg/dl (8.4-10.2); Carbon Dioxide 28 mmol/L (22-30); Chloride 98 mmol/L (98-107); Estimated Creatinine Clearance 85 ml/min; Glucose 123 mg/dl (70-99); Potassium 3.3 mmol/L (3.5-5.1); Sodium 131 mmol/L (135-145); Total Bilirubin 0.7 mg/dl (0.2-1.3); Total Protein 5.9 g/dl (6.3-8.2); eGFR > 60.00
[2023-08-04 15:13] LABS: Absolute Neutrophils -Man Diff 51.7 10^3/uL (1.4-6.5); Atypical Lymphocytes 1 %; Band Neutrophils 15 % (0-3); Lymphocytes 3 % (20-51); Monocytes 1 % (2-9); Platelets Checked Yes; Segmented Neutrophils 80 % (42-75)
[2023-08-04 15:14] LABS: Anisocytosis 1+; Macrocytosis 1+; Normal RBC Morphology No
[2023-08-04 15:15] LABS: Ovalocytes Slight; Poikilocytosis 1+; Polychromasia Slight; Total Cells Counted 100
[2023-08-04 16:17] VITALS: BP 149/86
[2023-08-04 16:51] LABS: TSH Reflex To Free T4 8.67 uIU/ml (0.47-4.68)
[2023-08-04 17:16] VITALS: BP 154/78
[2023-08-04 17:20] LABS: Free T4 1.12 ng/dl (0.78-2.19)
== END 2023-08-04 17:25 | disposition home or self-care (01) ==
LOC: EMR 13:51
PROVIDERS: Emergency Medicine; EMERGENCY PHYSICIAN Emergency Medicine; FAMILY PHYSICIAN Physician Assistant Medical
DX: R53.1 Weakness (principal); R11.10 Vomiting, unspecified; R03.0 Elevated blood-pressure reading, without diagnosis of hypertension; C50.919 Malignant neoplasm of unspecified site of unspecified female breast; G20.A1 Parkinson's disease without dyskinesia, without mention of fluctuations; Z79.890 Hormone replacement therapy; Z85.850 Personal history of malignant neoplasm of thyroid; Z88.2 Allergy status to sulfonamides
CPT/HCPCS: 99284; 96360; 80053; 84439; 84443; 85025

== ENCOUNTER → 2023-08-12 15:09 | Outpatient (REF) | payer MEDICARE, OTHER, SELFPAY ==
[2023-08-12 15:06] LABS: % Basophils 0.1 % (0-2); % Immature Granulocytes 6.6 % (0-0.5); % Lymphocytes 4.6 % (20.5-51.1); % Monocytes 2.6 % (1.7-9.3); % Neutrophils 86.1 % (42.2-75.2); Absolute Basophils 0.1 10^3/uL (0-0.2); Absolute Immature Granulocytes 3.3 10^3/uL (0-0.05); Absolute Lymphocytes 2.3 10^3/uL (1.2-3.4); Absolute Monocytes 1.3 10^3/uL (0.1-0.6); Absolute Neutrophils 42.4 10^3/uL (1.4-6.5); Hematocrit 32.7 % (37.0-47.0); Mean Corp Hgb Conc. 33.6 g/dL (33.0-37.0); Mean Corpuscular Hgb 29.9 pg (27.0-31.0); Mean Corpuscular Volume 88.9 fL (81.0-99.0); Mean Platelet Volume 9.2 fL (7.4-10.4); Platelet Count 280 10^3/uL (130-400); Red Blood Cell Count 3.68 10^6/uL (4.20-5.40); Red Cell Dist. Width 16.3 % (11.5-14.5)
[2023-08-12 15:11] LABS: White Blood Cell Count 49.2 10^3/uL (4.8-10.8)
[2023-08-12 15:58] LABS: ALT (SGPT) 30 U/L (0-35); AST (SGOT) 39 U/L (14-36); Albumin 4.1 g/dl (3.5-5.0); Alkaline Phosphatase 200 U/L (38-126); Blood Urea Nitrogen 12 mg/dl (7-17); Calcium 9.2 mg/dl (8.4-10.2); Carbon Dioxide 33 mmol/L (22-30); Chloride 98 mmol/L (98-107); Glucose 100 mg/dl (70-99); Potassium 3.1 mmol/L (3.5-5.1); Sodium 139 mmol/L (135-145); Total Bilirubin 0.5 mg/dl (0.2-1.3); Total Protein 6.7 g/dl (6.3-8.2); eGFR > 60.00
== END ==
LOC: OIDL 15:09
PROVIDERS: ATTENDING PHYSICIAN Internal Medicine Hematology & Oncology
DX: C50.411 Malignant neoplasm of upper-outer quadrant of right female breast (principal); Z85.850 Personal history of malignant neoplasm of thyroid
CPT/HCPCS: 80053; 85025

== ENCOUNTER → 2023-08-21 14:27 | Outpatient (REF) | payer MEDICARE, OTHER, SELFPAY ==
[2023-08-21 15:20] LABS: % Basophils 0.4 % (0-2); % Eosinophils 0.2 % (0-6); % Immature Granulocytes 6.8 % (0-0.5); % Lymphocytes 11.9 % (20.5-51.1); % Monocytes 2.6 % (1.7-9.3); % Neutrophils 78.1 % (42.2-75.2); Absolute Immature Granulocytes 0.7 10^3/uL (0-0.05); Absolute Lymphocytes 1.2 10^3/uL (1.2-3.4); Absolute Monocytes 0.3 10^3/uL (0.1-0.6); Absolute Neutrophils 7.7 10^3/uL (1.4-6.5); Hematocrit 28.4 % (37.0-47.0); Hemoglobin 9.5 g/dL (12.0-16.0); Mean Corp Hgb Conc. 33.5 g/dL (33.0-37.0); Mean Corpuscular Hgb 30.1 pg (27.0-31.0); Mean Corpuscular Volume 89.9 fL (81.0-99.0); Mean Platelet Volume 10.2 fL (7.4-10.4); Platelet Count 166 10^3/uL (130-400); Red Blood Cell Count 3.16 10^6/uL (4.20-5.40); Red Cell Dist. Width 16.9 % (11.5-14.5); White Blood Cell Count 9.9 10^3/uL (4.8-10.8)
== END ==
LOC: OIDL 14:27
PROVIDERS: ATTENDING PHYSICIAN Internal Medicine Hematology & Oncology
DX: C50.411 Malignant neoplasm of upper-outer quadrant of right female breast (principal)
CPT/HCPCS: 85025

== ENCOUNTER → 2023-09-02 09:11 | Outpatient (REF) | payer MEDICARE, OTHER, SELFPAY ==
[2023-09-02 10:00] LABS: % Basophils 0.2 % (0-2); % Eosinophils 0.1 % (0-6); % Immature Granulocytes 5.5 % (0-0.5); % Lymphocytes 6.3 % (20.5-51.1); % Monocytes 3.3 % (1.7-9.3); % Neutrophils 84.6 % (42.2-75.2); Absolute Basophils 0.1 10^3/uL (0-0.2); Absolute Immature Granulocytes 1.9 10^3/uL (0-0.05); Absolute Lymphocytes 2.2 10^3/uL (1.2-3.4); Absolute Monocytes 1.2 10^3/uL (0.1-0.6); Absolute Neutrophils 29.5 10^3/uL (1.4-6.5); Hematocrit 30.8 % (37.0-47.0); Hemoglobin 10.1 g/dL (12.0-16.0); Mean Corp Hgb Conc. 32.8 g/dL (33.0-37.0); Mean Corpuscular Hgb 29.8 pg (27.0-31.0); Mean Corpuscular Volume 90.9 fL (81.0-99.0); Mean Platelet Volume 8.9 fL (7.4-10.4); Nucleated Red Blood Cells % 0.1 %; Platelet Count 375 10^3/uL (130-400); Red Blood Cell Count 3.39 10^6/uL (4.20-5.40); Red Cell Dist. Width 19.1 % (11.5-14.5); White Blood Cell Count 34.9 10^3/uL (4.8-10.8)
[2023-09-02 10:07] LABS: Urine Albumin 1+ (Neg - Trace); Urine Bilirubin Negative (Negative); Urine Character Slightly Cloudy (Clear); Urine Color Yellow; Urine Glucose Negative (Negative); Urine Ketone Trace (Negative); Urine Leukocyte 2+ (Negative); Urine Nitrite Negative (Negative); Urine Occult Blood 3+ (Negative); Urine Specific Gravity 1.015 (<1.030); Urine Urobilinogen Negative (Neg - 1+)
[2023-09-02 10:18] LABS: Urine Bacteria Few (Negative); Urine Squamous Cell 0-2 /LPF (Few); Urine White Cell 50-60 /HPF (0-5)
[2023-09-02 10:21] LABS: ALT (SGPT) 13 U/L (0-35); AST (SGOT) 29 U/L (14-36); Albumin 4.3 g/dl (3.5-5.0); Alkaline Phosphatase 190 U/L (38-126); Blood Urea Nitrogen 16 mg/dl (7-17); Calcium 9.7 mg/dl (8.4-10.2); Carbon Dioxide 32 mmol/L (22-30); Chloride 98 mmol/L (98-107); Glucose 91 mg/dl (70-99); Sodium 139 mmol/L (135-145); Total Bilirubin 0.4 mg/dl (0.2-1.3); Total Protein 7.1 g/dl (6.3-8.2); eGFR > 60.00
== END ==
LOC: REG 09:11
PROVIDERS: ATTENDING PHYSICIAN Internal Medicine Hematology & Oncology; FAMILY PHYSICIAN Physician Assistant Medical
DX: C50.411 Malignant neoplasm of upper-outer quadrant of right female breast (principal); Z85.850 Personal history of malignant neoplasm of thyroid; N10 Acute pyelonephritis
CPT/HCPCS: 36415; 80053; 81003; 81015; 85025; 87077; 87086; 87186

== ENCOUNTER → 2023-09-25 07:29 | Outpatient (REF) | payer MEDICARE, OTHER, SELFPAY ==
[2023-09-25 08:41] LABS: Hemoglobin 10.2 g/dL (12.0-16.0); Mean Corp Hgb Conc. 32.9 g/dL (33.0-37.0); Mean Corpuscular Hgb 31.3 pg (27.0-31.0); Mean Corpuscular Volume 95.1 fL (81.0-99.0); Mean Platelet Volume 9.2 fL (7.4-10.4); Nucleated Red Blood Cells % 0.2 %; Platelet Count 231 10^3/uL (130-400); Red Blood Cell Count 3.26 10^6/uL (4.20-5.40); Red Cell Dist. Width 22.1 % (11.5-14.5); White Blood Cell Count 33.1 10^3/uL (4.8-10.8)
[2023-09-25 09:03] LABS: ALT (SGPT) < 10 U/L (0-35); AST (SGOT) 27 U/L (14-36); Albumin 4.5 g/dl (3.5-5.0); Alkaline Phosphatase 183 U/L (38-126); Blood Urea Nitrogen 25 mg/dl (7-17); Calcium 9.1 mg/dl (8.4-10.2); Carbon Dioxide 31 mmol/L (22-30); Chloride 97 mmol/L (98-107); Glucose 83 mg/dl (70-99); Potassium 3.6 mmol/L (3.5-5.1); Sodium 135 mmol/L (135-145); Total Bilirubin 0.5 mg/dl (0.2-1.3); Total Protein 6.8 g/dl (6.3-8.2); eGFR > 60.00
[2023-09-25 11:05] LABS: Absolute Neutrophils -Man Diff 28.1 10^3/uL (1.4-6.5); Band Neutrophils 12 % (0-3); Eosinophils 1 % (0-6); Lymphocytes 11 % (20-51); Monocytes 3 % (2-9); Segmented Neutrophils 73 % (42-75)
[2023-09-25 11:06] LABS: Normal RBC Morphology Yes; Platelets Checked Yes; Total Cells Counted 100
== END ==
LOC: REG 07:29
PROVIDERS: ATTENDING PHYSICIAN Internal Medicine Hematology & Oncology; FAMILY PHYSICIAN Physician Assistant Medical
DX: C50.411 Malignant neoplasm of upper-outer quadrant of right female breast (principal); Z85.850 Personal history of malignant neoplasm of thyroid
CPT/HCPCS: 36415; 80053; 85025

== ENCOUNTER 2023-09-30 18:08 | Inpatient (IN) | payer MEDICARE, OTHER, SELFPAY ==
[2023-09-30] VITALS (23 sets, daily range): BP systolic 73–143; BP diastolic 53–79; PULSE 96–116; BMI 19.5
[2023-09-30 14:41] LABS: % Basophils 0.2 % (0-2); % Immature Granulocytes 5.3 % (0-0.5); % Lymphocytes 1.2 % (20.5-51.1); % Monocytes 0.9 % (1.7-9.3); % Neutrophils 92.4 % (42.2-75.2); Absolute Basophils 0.1 10^3/uL (0-0.2); Absolute Immature Granulocytes 2.4 10^3/uL (0-0.05); Absolute Lymphocytes 0.5 10^3/uL (1.2-3.4); Absolute Monocytes 0.4 10^3/uL (0.1-0.6); Absolute Neutrophils 42.9 10^3/uL (1.4-6.5); Hematocrit 30.5 % (37.0-47.0); Hemoglobin 10.5 g/dL (12.0-16.0); Mean Corp Hgb Conc. 34.4 g/dL (33.0-37.0); Mean Corpuscular Hgb 31.9 pg (27.0-31.0); Mean Corpuscular Volume 92.7 fL (81.0-99.0); Mean Platelet Volume 10.1 fL (7.4-10.4); Nucleated Red Blood Cells % 0 %; Platelet Count 166 10^3/uL (130-400); Red Blood Cell Count 3.29 10^6/uL (4.20-5.40); Red Cell Dist. Width 20.7 % (11.5-14.5)
[2023-09-30 14:47] LABS: White Blood Cell Count 46.4 10^3/uL (4.8-10.8)
[2023-09-30 14:53] LABS: ALT (SGPT) < 10 U/L (0-35); AST (SGOT) 28 U/L (14-36); Albumin 4.4 g/dl (3.5-5.0); Alkaline Phosphatase 191 U/L (38-126); Blood Urea Nitrogen 25 mg/dl (7-17); Calcium 9.1 mg/dl (8.4-10.2); Carbon Dioxide 26 mmol/L (22-30); Chloride 96 mmol/L (98-107); Glucose 157 mg/dl (70-99); Potassium 3.8 mmol/L (3.5-5.1); Sodium 129 mmol/L (135-145); Total Protein 6.6 g/dl (6.3-8.2); eGFR > 60.00
--- NOTE | 2023-09-30 17:55 | HPS.HSE ---
Family Physician
-
Family Physician: Abigail Hernández PA-C
Chief Complaint
-
Syncope
History of Present Illness
This is a 68 year old female with a past medical history of Stage III breast cancer s/p lumpectomy, Parkinson's disease, and hypertension who presented to the ED sent from [facility] this morning after becoming hypotensive and having
episode of 'fainting'. She had an episode at home this morning when she fell to her knees, and again this morning at [place]. She states leading up to fainting episode, she felt diaphoretic and shaky. She states this occurs in between each cancer
treatment cycle, but today her blood pressure was noted to be in the 70s thus prompting her to be sent to the emergency department. She also experiences diarrhea in between each cycle and she started having episodes of diarrhea this morning that has
been constant. She denies vomiting but has been experiencing dry heaves. She states her appetite varies throughout each treatment cycle but she has not been able to eat or drink much. She reports her last chemotherapy was on September 25. She denies
any recent antibiotics, but did complete a coarse of antibiotics for a UTI in early July.
Medical History
Past Medical History
Past Medical History: Reports Other
Additional Past Medical History:
Stage III Breast CA s/p Lumpectomy
Parkinson's Disease
Essential Hypertension
Hyperlipidemia
Medullary Thyroid CA s/p Thyroidectomy
Past Surgical History: Reports Other
Additional Past Surgical History:
Right Lumpectomy with Lymph Node Dissection
Thyroidectomy
Social History
Tobacco: Non-smoker
Family History
Family History: Not pertinent
Allergies / Home Medications
Allergies reflects when Allergies were last updated in [facility].
Home Medications with original date entered in thereNow
Allergy/Medication List:
Allergies
Allergy/AdvReac Type Severity Reaction Status Date / Time
Sulfa (Sulfonamide Allergy flu like Verified 09/30/23 14:24
Antibiotics) symptoms
Home Medications
carbidopa ER 36.25 mg-levodopa 145 mg capsule,extended release (Rytary) 1 cap PO TID 05/28/23
levothyroxine 75 mcg tablet 75 mcg PO DAILY 05/28/23
losartan 25 mg tablet 25 mg PO HS 05/28/23
rasagiline 1 mg tablet 1 mg PO HS 05/28/23
simvastatin 40 mg tablet 40 mg PO HS 05/28/23
dexamethasone 4 mg tablet 4 mg PO DIRECTED 07/12/23
loperamide 2 mg capsule 2 mg PO BIDPRN PRN diarrhea 07/12/23
ondansetron 8 mg disintegrating tablet 8 mg PO Q8HPRN PRN nausea/vomiting 07/12/23
loratadine 10 mg tablet (Claritin) 10 mg PO DAILY 09/30/23
methenamine hippurate 1 gram tablet (Hiprex) 1 g PO BID 09/30/23
Review of Systems
-
A 12 point ROS was completed and negative except as noted: Yes
Constitutional: Denies Fever or Chills
Respiratory: Denies Cough or Trouble Breathing
Cardiac: Denies Chest Pain or Palpitations
Physical Exam
Vital Signs
Vital Signs
Temp Pulse Resp BP Pulse Ox
98.1 F 88 22 135/75 99
09/30/23 14:31 09/30/23 16:30 09/30/23 16:30 09/30/23 16:30 09/30/23 14:45
Physical Exam
General: Comfortable and Conversant
HEENT: Anicteric and Moist mucous membranes
Respiratory: Clear and Non Labored Respirations
Cardiac: S1/S2 and Regular Rhythm
GI: Soft and Non Tender
Rectal: Deferred by Provider
Musculoskeletal: No Clubbing, No Cyanosis and No Edema
Skin: Warm and Dry
Neuro: Awake, Alert, Oriented and Nonfocal/grossly intact
Psych: Calm
Laboratory Results
-
09/30/23 14:28
09/30/23 14:28
Laboratory Results
Total Bilirubin 1.0 mg/dl (0.2-1.3) 09/30/23 14:28
AST 28 U/L (14-36) 09/30/23 14:28
ALT < 10 U/L (0-35) 09/30/23 14:28
Alkaline Phosphatase 191 U/L (38-126) H 09/30/23 14:28
Data Reviewed
-
Lab Data: Labs Reviewed by me
Impression/Plan
-
C Diff Colitis
-Continue oral vancomycin
Hyponatremia, secondary to Volume Depletion
-Continue IVFs
-Recheck sodium in AM
Near-Syncope secondary to Volume Depletion
-Continue IVFs
-Monitor on Telemetry
-Check Orthostatic VS
Stage III Breast CA s/p Lumpectomy - Last Chemotherapy September 25
-Monitor CBC counts closely
Parkinson's Disease
-Continue carbidopa-levodopa, and rasagiline
Essential Hypertension
-Hold losartan
Hyperlipidemia
-Continue statin
Hx Medullary Thyroid CA s/p Thyroidectomy
-Continue levothyroxine
DVT proph: Lovenox
Code Status: Full Code
--- NOTE | 2023-09-30 18:01 | W.PN.UPDATE ---
Update Note
Progress Note Update
I saw and examined the patient.
The PA note was reviewed and I agree with the note.
Comment:
68-year-old female past medical history of thyroid medullary cancer, breast cancer, hypertension, hyperlipidemia who is presenting as [facility] [employer]GER from [facility]. Patient was found to be systolic blood pressure in the 70. Patient was found to
be pale and diaphoretic. Patient received chemotherapy on Friday and states usually she has chronic diarrhea and postchemotherapy per her instruction she starts on Imodium. States of chronic nausea but no vomiting. Patient with episodes of
diarrhea and C. difficile was found to be positive.
ER course-NS X 1liter.
General: Comfortable and Conversant, cachetic
HEENT: Anicteric and Moist mucous membranes
Respiratory: Clear and Non Labored Respirations
Cardiac: S1/S2 and Regular Rhythm
GI: Soft and Non Tender
Musculoskeletal: No Clubbing, No Cyanosis and No Edema
Skin: Warm and Dry
Neuro: Awake, Alert, Oriented and Nonfocal/grossly intact
Psych: Calm
Impression
Sepsis secondary to C. difficile
Severe leukocytosis secondary to steroids, Neupogen and C. difficile
Breast cancer
Primary hypertension
Hyperlipidemia
Parkinson's disease
Near syncope secondary to dehydration
Mild hyponatremia secondary to dehydration
Plan
Start patient on LR IV fluids at 100 cc/h
Start patient on p.o. vancomycin
cdiff precaution
Low residue diet
If with severe abdominal pain will need to check CT abdomen pelvis
Monitor for nausea and vomiting
Hold p.o. blood pressure meds
DVT ppx
I spent a total of 78 minutes with the patient or on the floor. More than 50% of this time involved counseling and coordination of care.
[2023-09-30] MEDS: LR 1000 IV (18:08)
[2023-09-30] MEDS: LIPITOR 20 MG PO (22:02)
[2023-09-30] MEDS: RASAGILINE MESYLATE 1 MG PO (22:03)
[2023-09-30] MEDS: LOVENOX 40 MG SC (22:06)
[2023-09-30] MEDS: HIPREX 1 GRAM PO (22:06)
[2023-09-30] MEDS: FIRVANQ 125 MG PO (23:31)
[2023-10-01] VITALS (7 sets, daily range): BP systolic 113–179; BP diastolic 68–91; PULSE 81–113
--- NOTE | 2023-10-01 03:38 | PTCARENOTE ---
Pt admitted to unit from ED. Pt pulled over from stretcher to bed by nursing staff. AAXO3. VS: Temp 98.4, Pulse 97, BP 114/70, Resp Rate 20, and O2 98 on RA. Pt denies lightheadedness and dizziness. Pt oriented to room with call fong in reach. Plan
of care ongoing.
[2023-10-01] MEDS: NON-FORMULARY ITEM PO (03:55)
[2023-10-01] MEDS: LR 1000 IV (04:09)
[2023-10-01 05:32] LABS: Hematocrit 26.4 % (37.0-47.0); Mean Corp Hgb Conc. 34.1 g/dL (33.0-37.0); Mean Corpuscular Hgb 31.9 pg (27.0-31.0); Mean Corpuscular Volume 93.6 fL (81.0-99.0); Mean Platelet Volume 10.8 fL (7.4-10.4); Platelet Count 149 10^3/uL (130-400); Red Blood Cell Count 2.82 10^6/uL (4.20-5.40); Red Cell Dist. Width 20.9 % (11.5-14.5); White Blood Cell Count 26.5 10^3/uL (4.8-10.8)
[2023-10-01] MEDS: SYNTHROID 75 MCG PO (05:47)
[2023-10-01] MEDS: FIRVANQ 125 MG PO ×3 (05:47→17:33)
[2023-10-01 05:55] LABS: Blood Urea Nitrogen 16 mg/dl (7-17); Calcium 8.5 mg/dl (8.4-10.2); Carbon Dioxide 30 mmol/L (22-30); Chloride 101 mmol/L (98-107); Estimated Creatinine Clearance 67 ml/min; Glucose 85 mg/dl (70-99); Magnesium 1.4 mg/dl (1.6-2.3); Sodium 134 mmol/L (135-145); eGFR > 60.00
[2023-10-01 06:03] LABS: Potassium 3.4 mmol/L (3.5-5.1)
[2023-10-01] MEDS: NON-FORMULARY ITEM 1 CAP PO ×3 (08:57→21:14)
[2023-10-01] MEDS: CLARITIN 10 MG PO (08:58)
[2023-10-01] MEDS: HIPREX 1 GRAM PO ×2 (08:59→21:14)
[2023-10-01] MEDS: KCL 40 MEQ PO (09:01)
[2023-10-01] MEDS: MAGNESIUM SULFATE 100 IV (09:01)
--- NOTE | 2023-10-01 12:24 | W.PN.HOSP.TC ---
Today's Communication/Plan
-
Continue with p.o. vancomycin
IV fluids
Tolerating diet DC fluids
Assessment / Plan
Assessment / Plan
Sepsis 2/2 C Diff Colitis
-Continue oral vancomycin
-WBC downtrending
Severe leukemoid reaction likely secondary to receiving neupogen, steroids and sepsis
-improving.
Hyponatremia, secondary to Volume Depletion
-Continue IVFs
-improving
Near-Syncope secondary to Volume Depletion
-Continue IVFs
-Monitor on Telemetry
-Check Orthostatic VS
Stage III Breast CA s/p Lumpectomy - Last Chemotherapy September 25
-Monitor CBC counts closely
Parkinson's Disease
-Continue carbidopa-levodopa, and rasagiline
Essential Hypertension
-Hold losartan
Hyperlipidemia
-Continue statin
Hx Medullary Thyroid CA s/p Thyroidectomy
-Continue levothyroxine
Hypokalemia
-Replete and monitor
DVT proph: Lovenox
Code Status: Full Code
Anticipated Discharge: 24 - 48 hours
Subjective/Interval History
-
Date of Service: October 01, 2023
Feeling weak
No bowel movements as did take 4 mg approximately of Imodium prior to arrival to the hospital
Objective Data
-
Labs:
Laboratory Results
10/01/23 10/01/23
04:54 04:55
WBC 26.5 H
Hgb 9.0 L
Hct 26.4 L
Plt Count 149
Sodium 134 L
Potassium 3.4 L
Chloride 101
Carbon Dioxide 30
BUN 16
Creatinine 0.4 L
Glucose 85
Calcium 8.5
Vital Signs:
Vital Signs
Temp Pulse Resp BP Pulse Ox
97.8 F 90 24 153/89 97
10/01/23 08:00 10/01/23 08:00 10/01/23 08:00 10/01/23 08:00 10/01/23 08:00
I&O
09/30/23 10/01/23 10/02/23
06:59 06:59 06:59
Intake Total 1680 / 1680
Balance 1680 / 168
Physical Exam
-
General: Well Developed, No Apparent Distress and Cachectic
HEENT: Normocephalic, Atraumatic and Moist Mucous Membranes
Respiratory: Clear to Auscultation
Cardiac: Regular Rhythm and S1/S2; Negative Murmur, Rub or Gallop
GI: Soft, Nontender, Nondistended and Normal Bowel Sounds; Negative Organomegaly
Rectal: Deferred by Provider
Musculoskeletal: No Clubbing, No Cyanosis and No Edema
Skin: Negative Rash
Neuro: Awake, AO x 3, No Motor Deficits and Nonfocal/Grossly Intact
Psych: Calm
Data Reviewed
-
Total Time Spent with Patient (in minutes): 55
--- NOTE | 2023-10-01 12:56 | CM ---
Patient seen bedside.
IA completed.
Patient lives with spouse in a split level home with no steps to enter.
Patient independent prior to admission, has a RW that she purchased for a trip, but does not use.
Patient drives.
Patient currently undergoing Chemo.
Patient has not had VN or been to a skilled facility.
PCP and Pharmacy verified.
Spouse will transport home.
Plan:home no needs anticipated.
[2023-10-01] MEDS: LOVENOX 40 MG SC (17:33)
[2023-10-01] MEDS: LIPITOR 20 MG PO (21:14)
[2023-10-01] MEDS: RASAGILINE MESYLATE 1 MG PO (21:14)
[2023-10-02] MEDS: FIRVANQ 125 MG PO ×5 (00:54→23:46)
[2023-10-02] MEDS: SYNTHROID 75 MCG PO (06:00)
[2023-10-02 07:25] VITALS: BP 122/79
[2023-10-02 07:52] VITALS: BP 102/68; BP 122/79; BP 123/81; PULSE 100; PULSE 106; PULSE 113
[2023-10-02] MEDS: NON-FORMULARY ITEM 1 CAP PO ×3 (08:47→21:40)
[2023-10-02] MEDS: HIPREX 1 GRAM PO ×2 (08:48→20:45)
[2023-10-02] MEDS: CLARITIN 10 MG PO (08:48)
[2023-10-02 09:29] LABS: Hematocrit 29.5 % (37.0-47.0); Hemoglobin 9.6 g/dL (12.0-16.0); Mean Corp Hgb Conc. 32.5 g/dL (33.0-37.0); Mean Corpuscular Hgb 31.8 pg (27.0-31.0); Mean Corpuscular Volume 97.7 fL (81.0-99.0); Mean Platelet Volume 10.5 fL (7.4-10.4); Nucleated Red Blood Cells % 0 %; Platelet Count 141 10^3/uL (130-400); Red Blood Cell Count 3.02 10^6/uL (4.20-5.40); Red Cell Dist. Width 20.5 % (11.5-14.5); White Blood Cell Count 9.2 10^3/uL (4.8-10.8)
[2023-10-02 09:48] LABS: Blood Urea Nitrogen 15 mg/dl (7-17); Calcium 8.8 mg/dl (8.4-10.2); Carbon Dioxide 30 mmol/L (22-30); Chloride 96 mmol/L (98-107); Estimated Creatinine Clearance 67 ml/min; Glucose 116 mg/dl (70-99); Potassium 3.8 mmol/L (3.5-5.1); Sodium 131 mmol/L (135-145); eGFR > 60.00
--- NOTE | 2023-10-02 11:02 | W.PN.HOSP.TC ---
Addendum entered and electronically signed by Juan Dela Cruz MD 10/02/23 14:23:
Follow-up with the patient states she feeling weak. Patient agreed to remain in the hospital. Will start patient on fluids.
Original Note:
Today's Communication/Plan
-
po vanc
hold losartan
IV mag and can DC afterwards
Assessment / Plan
Assessment / Plan
Sepsis 2/2 C Diff Colitis
-Continue oral vancomycin
-WBC normalized
Severe leukemoid reaction likely secondary to receiving neupogen, steroids and sepsis
-Resolved
Hyponatremia, secondary to Volume Depletion
Improved. Tolerating diet. DC fluids.
Near-Syncope secondary to Volume Depletion
-Monitor on Telemetry. No events.
Breast CA s/p Lumpectomy - Last Chemotherapy September 25
-Monitor CBC counts closely
Parkinson's Disease
-Continue carbidopa-levodopa, and rasagiline
Essential Hypertension
-Hold losartan x 1 week. Daily BP check and resume if BP>140. OP pcp f/u. Patient verbalized understanding agrees with planning
Hyperlipidemia
-Continue statin
Hx Medullary Thyroid CA s/p Thyroidectomy
-Continue levothyroxine
Hypokalemia
-Replete and monitor
Hypomagnesemia
-Repeat at 1.4 additional IV supplementation ordered.
DVT proph: Lovenox
Code Status: Full Code
More than 30 minutes spent in discharge including
Final examination of the patient
Summarizing hospital stay
Instructions for continuing care to all relevant caregivers
Preparation of discharge records, prescriptions, and referral forms
Total time spent (in minutes): 52
Anticipated Discharge: Today
Subjective/Interval History
-
Date of Service: October 02, 2023
Tolerating diet.
Denies any abdominal pain, nausea or vomiting
Objective Data
-
Labs:
Laboratory Results
10/02/23
09:12
WBC 9.2
Hgb 9.6 L
Hct 29.5 L
Plt Count 141
Sodium 131 L
Potassium 3.8
Chloride 96 L
Carbon Dioxide 30
BUN 15
Creatinine 0.3 L
Glucose 116 H
Calcium 8.8
Vital Signs:
Vital Signs
Temp Pulse Resp BP Pulse Ox
97.7 F 100 18 122/79 99
10/02/23 07:25 10/02/23 07:25 10/02/23 07:25 10/02/23 07:25 10/02/23 07:25
I&O
10/01/23 10/02/23 10/03/23
06:59 06:59 06:59
Intake Total 1680 / 1680 960 / 960
Balance 1680 / 1680 960 / 960
Physical Exam
-
General: No Apparent Distress and Cachectic
HEENT: Normocephalic, Atraumatic and Moist Mucous Membranes
Respiratory: Clear to Auscultation
Cardiac: Regular Rhythm and S1/S2; Negative Murmur, Rub or Gallop
GI: Soft, Nontender, Nondistended and Normal Bowel Sounds; Negative Organomegaly
Rectal: Deferred by Provider
Musculoskeletal: No Clubbing, No Cyanosis and No Edema
Skin: Negative Rash
Neuro: Awake, AO x 3, No Motor Deficits and Nonfocal/Grossly Intact
Psych: Calm
Data Reviewed
-
Total Time Spent with Patient (in minutes): 55
[2023-10-02 11:57] LABS: Magnesium 1.4 mg/dl (1.6-2.3)
[2023-10-02 12:04] LABS: Band Neutrophils 15 % (0-3); Eosinophils 1 % (0-6); Lymphocytes 11 % (20-51); Monocytes 2 % (2-9)
[2023-10-02 12:05] LABS: Absolute Neutrophils -Man Diff 7.6 10^3/uL (1.4-6.5); Promyelocytes 2 % (-); Segmented Neutrophils 68 % (42-75)
[2023-10-02 12:06] LABS: Macrocytosis Slight; Normal RBC Morphology No; Platelets Checked YES
[2023-10-02 12:07] LABS: Ovalocytes FEW; Tear Drop Red Blood Cells FEW; Total Cells Counted 100
[2023-10-02] MEDS: MAGNESIUM SULFATE 100 IV (12:19)
[2023-10-02 15:21] VITALS: BP 120/71
[2023-10-02] MEDS: LR 1000 IV (17:22)
[2023-10-02] MEDS: LOVENOX 40 MG SC (17:23)
[2023-10-02 20:12] VITALS: BP 117/77; BP 126/81; BP 128/81; PULSE 108; PULSE 112; PULSE 99
[2023-10-02] MEDS: RASAGILINE MESYLATE 1 MG PO (21:37)
[2023-10-02] MEDS: LIPITOR 20 MG PO (21:37)
[2023-10-02 23:11] VITALS: BP 129/76
[2023-10-03] MEDS: LR 1000 IV (03:41)
[2023-10-03 05:45] LABS: Hematocrit 27.2 % (37.0-47.0); Hemoglobin 8.9 g/dL (12.0-16.0); Mean Corp Hgb Conc. 32.7 g/dL (33.0-37.0); Mean Corpuscular Hgb 31.4 pg (27.0-31.0); Mean Corpuscular Volume 96.1 fL (81.0-99.0); Mean Platelet Volume 10.4 fL (7.4-10.4); Platelet Count 120 10^3/uL (130-400); Red Blood Cell Count 2.83 10^6/uL (4.20-5.40); Red Cell Dist. Width 19.7 % (11.5-14.5); White Blood Cell Count 4.7 10^3/uL (4.8-10.8)
[2023-10-03 06:11] LABS: Blood Urea Nitrogen 12 mg/dl (7-17); Calcium 8.7 mg/dl (8.4-10.2); Carbon Dioxide 33 mmol/L (22-30); Chloride 97 mmol/L (98-107); Estimated Creatinine Clearance 67 ml/min; Glucose 99 mg/dl (70-99); Potassium 3.5 mmol/L (3.5-5.1); Sodium 132 mmol/L (135-145); eGFR > 60.00
[2023-10-03] MEDS: FIRVANQ 125 MG PO ×2 (06:11→11:20)
[2023-10-03] MEDS: SYNTHROID 75 MCG PO (06:11)
[2023-10-03 07:41] VITALS: BP 113/72
[2023-10-03 07:45] VITALS: BP 101/64; BP 112/71; BP 113/72; PULSE 105; PULSE 113; PULSE 95
[2023-10-03] MEDS: NON-FORMULARY ITEM 1 CAP PO (08:14)
[2023-10-03] MEDS: CLARITIN 10 MG PO (08:14)
[2023-10-03] MEDS: HIPREX 1 GRAM PO (08:16)
[2023-10-03 08:33] LABS: Absolute Neutrophils -Man Diff 3.5 10^3/uL (1.4-6.5); Band Neutrophils 12 % (0-3); Lymphocytes 13 % (20-51); Metamyelocytes 2 % (-); Monocytes 10 % (2-9); Platelets Checked Yes; Segmented Neutrophils 63 % (42-75)
[2023-10-03 08:35] LABS: Anisocytosis 1+; Hypochromasia 1+; Normal RBC Morphology No; Ovalocytes 1+; Polychromasia 1+; Total Cells Counted 100
[2023-10-03 09:45] LABS: Magnesium 1.6 mg/dl (1.6-2.3); Phosphorus 2.1 mg/dl (2.5-4.5)
[2023-10-03] MEDS: MAGNESIUM SULFATE 102 GRAMS IV (11:20)
[2023-10-03] MEDS: LR IV (11:41)
--- NOTE | 2023-10-03 12:09 | W.PN.HOSP.TC ---
Today's Communication/Plan
-
see note
Assessment / Plan
Assessment / Plan
Sepsis 2/2 C Diff Colitis
-Continue oral vancomycin
-WBC normalized and bandemia improving.
-AXR without severe distention.
Severe leukemoid reaction likely secondary to receiving neupogen, steroids and sepsis
-Resolved
Hyponatremia, secondary to Volume Depletion
Improved. Tolerating diet. DC fluids.
Near-Syncope secondary to Volume Depletion
-Monitor on Telemetry. No events.
Breast CA s/p Lumpectomy - Last Chemotherapy September 25
-Monitor CBC counts closely
Parkinson's Disease
-Continue carbidopa-levodopa, and rasagiline
Essential Hypertension
-Hold losartan x 1 week. Daily BP check and resume if BP>140. OP pcp f/u. Patient verbalized understanding agrees with planning
Hyperlipidemia
-Continue statin
Hx Medullary Thyroid CA s/p Thyroidectomy
-Continue levothyroxine
Hypokalemia
-Replete and monitor
Hypomagnesemia/Hypophos
-Replete/monitor
DVT proph: Lovenox
Code Status: Full Code
PT eval
Dispo-PT eval. additional dose of mag. po phos.
Anticipated Discharge: Today
Subjective/Interval History
-
Date of Service: October 03, 2023
Feeling better today
Denies any nausea or vomiting
Denies any abdominal pain or distention
No bowel movements
Tolerating diet
Objective Data
-
Labs:
Laboratory Results
10/03/23
05:21
WBC 4.7 L
Hgb 8.9 L
Hct 27.2 L
Plt Count 120 L
Sodium 132 L
Potassium 3.5
Chloride 97 L
Carbon Dioxide 33 H
BUN 12
Creatinine 0.4 L
Glucose 99
Calcium 8.7
Vital Signs:
Vital Signs
Temp Pulse Resp BP Pulse Ox
97.7 F 95 18 113/72 98
10/03/23 07:41 10/03/23 07:41 10/03/23 07:41 10/03/23 07:41 10/03/23 07:41
I&O
10/02/23 10/03/23 10/04/23
06:59 06:59 06:59
Intake Total 960 / 960 2079
Balance 960 / 960 2079
Physical Exam
-
General: No Apparent Distress and Cachectic
HEENT: Normocephalic, Atraumatic, Moist Mucous Membranes and Other (port noted )
Respiratory: Clear to Auscultation
Cardiac: Regular Rhythm and S1/S2; Negative Murmur, Rub or Gallop
GI: Soft, Nontender, Nondistended and Normal Bowel Sounds; Negative Organomegaly
Rectal: Deferred by Provider
Musculoskeletal: No Clubbing, No Cyanosis and No Edema
Skin: Negative Rash
Neuro: Awake, AO x 3, No Motor Deficits and Nonfocal/Grossly Intact
Psych: Calm
[2023-10-03] MEDS: NEUTRA-PHOS POWDER PACKET 250 MG PO (13:35)
[2023-10-03 14:07] VITALS: BP 120/78; BP 124/87
--- NOTE | 2023-10-03 15:11 | W.DCSUMMARY ---
Discharge Summary
Discharge Data
Date of Admission: 09/30/23
Date of Discharge: 10/03/23
-
Pending Results: No
Hospital Course
68-year-old female past medical history of breast cancer, Parkinson, hypertension, hyperlipidemia, history of medullary thyroid cancer status post thyroidectomy who was presented from [facility] with presyncope. Patient was found to
have a systolic blood pressure of 70s and was admitted to the hospital. IV fluid was started and blood pressure stabilized. Patient was also complaining of diarrhea and was found to be C. difficile colitis. Patient was started on p.o. vancomycin.
Patient electrolytes abnormality which was repleted and followed. Patient was recommended to hold blood pressure medication x 1 week. Abdominal x-ray was negative for distention. Patient was tolerating diet without any nausea or vomiting.
Patient has blood pressure machine at home and states she will check blood pressure daily and keep log and follow-up with primary doctor. Patient be discharged home with recommendation to follow-up outpatient with primary doctor.
Discharge Plan
-
Patient Disposition: Home (Routine Discharge)
Discharge Diagnosis/Procedures: Presyncope
Sepsis due to C. difficile colitis
Dehydration
Hypokalemia
Hyponatremia
Severe leukomoid reaction
Condition: Fair
Diet: As tolerated
Activity: As tolerated
Driving Restrictions: As prior to admission
Blood Work: cbc and bmp and magnesium level in 3-5 days via primary doctor.
Activity Restrictions/Additional Instructions:
Recommend to keep a log of daily blood pressure management and follow-up with primary doctor.
Referrals:
Abigail Hernández PA-C [Family Provider] - in less than 1 week (Follow-up for blood pressure check and medication management)
Prescriptions:
New
vancomycin 125 mg capsule
125 mg PO QID Qty: 34 0RF
Continued
simvastatin 40 mg Tablet
40 mg PO HS
levothyroxine 75 mcg Tablet
75 mcg PO DAILY
rasagiline 1 mg Tablet
1 mg PO HS
Rytary 36.25-145 mg Capsule, Extended Release
1 cap PO TID
ondansetron 8 mg Tablet,Disintegrating
8 mg PO Q8HPRN PRN (Reason: nausea/vomiting)
dexamethasone 4 mg Tablet
4 mg PO DIRECTED
Rx Instructions:
take one tablet 2 tablets 1 days before, 2 tablets then day of, and 2 tablets the day after chemo treatment.
methenamine hippurate [Hiprex] 1 gram Tablet
1 g PO BID
loratadine [Claritin] 10 mg Tablet
10 mg PO DAILY
Held
losartan 25 mg Tablet
25 mg PO HS
Hold Instructions: Resume on 10/08/23.
loperamide 2 mg Capsule
2 mg PO BIDPRN PRN (Reason: diarrhea)
Hold Instructions: Resume on 10/16/23.
Discharge Orders:
Discharge Patient (As Directed); Ordered 10/03/23
Ordered By: Juan Dela Cruz
Discharge Date and Time
Print Language: INDONESIAN
--- NOTE | 2023-10-03 15:27 | CM ---
Met with patient and at bedside
IMM benefit explained; form signed @ 1520
Plan: discharge to home without services; will provide ride home
[2023-10-03 15:50] VITALS: BP 141/83
--- NOTE | 2023-10-08 09:59 | ED.GENMED ---
History of Present Illness
General
Chief Complaint: Fainting Sensation
Source: patient
Exam Limitations: none
Time Seen by Provider: 09/30/23 14:39
Travel History
Have you had any contact with someone who has COVID-19?: No
Do you have any symptoms of coronavirus? Fever > 100 degrees, chills, cough, shortness of breath, sore throat, loss of taste or smell, muscle aches, or headache?: No
History of Present Illness
History of Present Illness:
68-year-old female presented from the [facility] with a syncopal episode in the bathroom. Patient has been lightheaded last few days. No abdominal pain bloody stools fever or other complaints.
Past History
Past History
ED Past Medical History: Other (Breast cancer, thyroid cancer, Parkinson's)
ED Past Surgical History: Gynecological
Social History
Tobacco: Non-smoker
Alcohol: None
Drug: None
Personal:
Review of Systems
Review of Systems
All Other Systems: Not applicable
Constitutional: Denies fever
Respiratory: Reports no symptoms; Denies trouble breathing
Cardiac: Denies chest pain
Phy Exam
Physical Exam
Physical Exam:
GENERAL: Alert and oriented in no apparent distress. Generally weak appearing
EYE: Orbits normal.
NECK: Supple
CARDIAC: Regular rate and rhythm without any obvious murmurs. Port upper chest wall
LUNGS: Clear breath sounds,normal
ABDOMEN: Soft, without focal tenderness or distention
NEUROLOGICAL: Alert and oriented , grossly non-focal
SKIN: Warm and dry, no rash or lesion, no discoloration, skin intact.
MUSCULOSKELETAL: No edema,no deformity.Good color
PSYCH: Normal and appropriate interaction.
Course
Orders/Labs/Results
Orders:
Orders
09/30/23 Breakfast
Regular
At Your Request: Full Participation
09/30/23 14:24
Electrocardiogram (*1) Urgent
Reason for Study: Fatigue / Weakness
09/30/23 14:28
CMP [Comprehensive Metabolic Panel] Urgent
Complete Blood Count/With Diff Urgent
C difficile Antigen & Toxins Urgent
ИРИНА Source: Feces/Stool
Specimen Description:
Date Specimen was Collected: 09/30/23
Time Specimen was Collected: 14:25
Stool Culture Urgent
ИРИНА Source: Feces/Stool
Specimen Description:
Date Specimen was Collected: 09/30/23
Time Specimen was Collected: 14:25
09/30/23 17:51
Admit/Transfer Patient As Directed
Co-Sign Provider:
Level of Care: Inpatient admission
Assign to:: Telemetry
Physician / Group: Jose De Jesus
Diagnosis: Syncope, C Diff
Reason for Telemetry: Syncope
Date to Stop Telemetry: 10/02/23
Time to Stop Telemetry: 11:00
Reason for Hospitalization: IVFs, Vancomycin
Expected length of stay greater than two midnights?: Yes
ELOS- Estimated Length of Stay in days: 3
I certify the patient meets the requirements for IP care: Yes
09/30/23 17:53
Code Status As Directed
Resuscitation Status: Full Code
09/30/23 18:00
Lactated Ringers [Lr] 1,000 ml IV 100 mls/hr
09/30/23 19:28
Acetaminophen [Tylenol] 650 mg PO Q4HPRN PRN
Ondansetron Injectable [Zofran] 4 mg IV Q6HPRN PRN
09/30/23 19:28
Activity As Directed
Activity Level: Out of Bed-Early Mobility
With Assistance
I&O [Intake/ Output] As Directed
Frequency: q12h
Orthostatic Vital Signs As Directed
Orthostatic VS Frequency: BID
Vital Signs As Directed
Frequency: Per unit guidelines
DX Deep Vein Thrombosis Video Routine
09/30/23 20:00
Methenamine Hippurate [Hiprex] 1 gram PO BID
09/30/23 21:00
Enoxaparin Sodium [Lovenox] 40 mg SC QPM
09/30/23 22:00
Atorvastatin [Lipitor] 20 mg PO HS
Rasagiline Mesylate 1 mg PO HS
carbidopa-levodopa [Rytary] See Dose Instructions PO TID
10/01/23 00:00
Vancomycin HCl [Firvanq] 125 mg PO Q6
10/01/23 04:54
Basic Metabolic Panel IN AM
Magnesium IN AM
10/01/23 04:55
Complete Blood Count/No Diff IN AM
10/01/23 06:00
Levothyroxine [Synthroid] 75 mcg PO DAILY @ 0600
10/01/23 08:00
Loratadine [Claritin] 10 mg PO DAILY
10/02/23 11:00
DC Protocol for Telemetry ONCE
Abnormal Lab Results
09/30/23
14:28
WBC 46.4 H* 10^3/uL
(4.8-10.8)
RBC 3.29 L 10^6/uL
(4.20-5.40)
Hgb 10.5 L g/dL
(12.0-16.0)
Hct 30.5 L %
(37.0-47.0)
MCH 31.9 H pg
(27.0-31.0)
RDW 20.7 H %
(11.5-14.5)
Abs Immat Gran (auto) 2.4 H 10^3/uL
(0-0.05)
Absolute Neuts (auto) 42.9 H 10^3/uL
(1.4-6.5)
Absolute Lymphs (auto) 0.5 L 10^3/uL
(1.2-3.4)
Immature Gran % 5.3 H %
(0-0.5)
Neutrophils % 92.4 H %
(42.2-75.2)
Lymphocytes % 1.2 L %
(20.5-51.1)
Monocytes % 0.9 L %
(1.7-9.3)
Sodium 129 L mmol/L
(135-145)
Chloride 96 L mmol/L
(98-107)
BUN 25 H mg/dl
(7-17)
Glucose 157 H mg/dl
(70-99)
Alkaline Phosphatase 191 H U/L
(38-126)
09/30/23 14:28
09/30/23 14:28
Vital Signs
Initial and Last Documented VS:
Initial Vital Signs
Pulse Resp BP Pulse Ox
87 18 73/53 99
09/30/23 14:17 09/30/23 14:17 09/30/23 14:17 09/30/23 14:17
Last Documented Vital Signs
Temp Pulse Resp BP Pulse Ox
97.7 F 105 18 141/83 99
10/03/23 15:50 10/03/23 15:50 10/03/23 15:50 10/03/23 15:50 10/03/23 15:50
MDM/Problems Addressed
Differential Diagnosis Includes:
Patient with syncope diarrhea likely related to dehydration. Significant leukocytosis but likely from Neupogen. Discussed with hematology oncology. Patient will be admitted for further care
*Pulse Oximetry
Patient hypoxic: no
*EKG
Interpreted by ED Provider?: Yes
Interpretation: abnormal
Comparison EKG: no changes
Heart Rate: 91
Rate: normal
Rhythm: sinus
[place]: normal axis
QRS Pattern: left vent hypertrophy
Ischemia: non-specific ST changes
*Sustainable Design Coordinator Interpretation
Rate: normal
Interpretation: normal
Rhythm: sinus
*Critical Care Note
Total Time (30-74mins, 75-104mins- exclusive of procedures): Not Applicable
Data Reviewed
Review of Other/Old Records Reveals: Labs, Records and Testing
ED Attending Note
-
Portions of this chart may have been created with voice recognition software.� Occasional wrong word or��sound alike� substitutions may have occurred due to the inherent limitations of voice recognition software.
Discharge Plan
Departure
Patient Disposition: Admit
Date of Disposition: 09/30/23
Time of Disposition: 16:51
Presentation/result/management discussed w/ accepting MD/DO: Hospitalist
Discharge Problem:
Syncope/dehydration, C. difficile colitis, History of breast CA
Interventions
Interventions:
*Risk Screen - Suicide Last Done: 09/30/23 20:07
*General Assessment Last Done: 09/30/23 14:17
*Neglect/Abuse Screening Last Done: 09/30/23 19:25
ED- Fall Risk Assessment Last Done: 09/30/23 15:35
*ED COVID-19 Vaccine History Last Done: 09/30/23 20:07
*Nursing Disposition Last Done: 09/30/23 19:25
ED- Cardiac Assessment Last Done: 09/30/23 15:35
ED- Neurological Assessment Last Done: 09/30/23 15:35
Discharge Date and Time
Discharge Date/Time: 09/30/23 19:27
== END 2023-10-03 15:50 | disposition home or self-care (01) | DRG 872 ==
LOC: 4 WEST ACU 18:08
PROVIDERS: Physician Assistant Medical; ADMITTING PHYSICIAN Hospitalist; EMERGENCY PHYSICIAN Emergency Medicine; FAMILY PHYSICIAN Physician Assistant Medical
DX: A41.4 Sepsis due to anaerobes (principal); A04.72 Enterocolitis due to Clostridium difficile, not specified as recurrent; E87.1 Hypo-osmolality and hyponatremia; R64 Cachexia; Z68.1 Body mass index [BMI] 19.9 or less, adult; E86.0 Dehydration; C50.919 Malignant neoplasm of unspecified site of unspecified female breast; G20.A1 Parkinson's disease without dyskinesia, without mention of fluctuations; I10 Essential (primary) hypertension; E78.5 Hyperlipidemia, unspecified; E87.6 Hypokalemia; E83.42 Hypomagnesemia; T38.0X5A Adverse effect of glucocorticoids and synthetic analogues, initial encounter
CPT/HCPCS: 74019; 80048; 80053; 83735; 84100; 85025; 85027; 87045; 87046; 87077; 87324; 87427; 87449; 93005; 97161; 99285

== ENCOUNTER → 2023-10-08 09:39 | Outpatient (REF) | payer MEDICARE, OTHER, SELFPAY | LOC: RCS 09:39 | PROVIDERS: ATTENDING PHYSICIAN Internal Medicine Cardiovascular Disease; FAMILY PHYSICIAN Physician Assistant Medical | DX: Z85.3 Personal history of malignant neoplasm of breast (principal); T45.1X5D Adverse effect of antineoplastic and immunosuppressive drugs, subsequent encounter | CPT/HCPCS: 93306; 93356 ==

== ENCOUNTER → 2023-10-09 16:25 | Outpatient (REF) | payer MEDICARE, OTHER, SELFPAY | LOC: RAD 16:25 | PROVIDERS: ATTENDING PHYSICIAN Internal Medicine Hematology & Oncology; FAMILY PHYSICIAN Physician Assistant Medical | DX: C50.411 Malignant neoplasm of upper-outer quadrant of right female breast (principal); Z85.850 Personal history of malignant neoplasm of thyroid | CPT/HCPCS: 71046 ==

== ENCOUNTER → 2023-10-15 12:05 | Outpatient (REF) | payer MEDICARE, OTHER, SELFPAY ==
[2023-10-15 14:05] LABS: ALT (SGPT) 10 U/L (0-35); AST (SGOT) 32 U/L (14-36); Alkaline Phosphatase 213 U/L (38-126); Blood Urea Nitrogen 16 mg/dl (7-17); Carbon Dioxide 27 mmol/L (22-30); Chloride 92 mmol/L (98-107); Glucose 64 mg/dl (70-99); Magnesium 1.2 mg/dl (1.6-2.3); Potassium 2.9 mmol/L (3.5-5.1); Sodium 136 mmol/L (135-145); Total Bilirubin 0.6 mg/dl (0.2-1.3); Total Protein 6.9 g/dl (6.3-8.2); eGFR > 60.00
[2023-10-15 14:35] LABS: Albumin 4.8 g/dl (3.5-5.0)
[2023-10-15 15:19] LABS: % Basophils 0.1 % (0-2); % Immature Granulocytes 5.7 % (0-0.5); % Lymphocytes 5.3 % (20.5-51.1); % Monocytes 3.2 % (1.7-9.3); % Neutrophils 85.7 % (42.2-75.2); Absolute Basophils 0.1 10^3/uL (0-0.2); Absolute Immature Granulocytes 2.3 10^3/uL (0-0.05); Absolute Lymphocytes 2.2 10^3/uL (1.2-3.4); Absolute Monocytes 1.3 10^3/uL (0.1-0.6); Hematocrit 32.9 % (37.0-47.0); Hemoglobin 10.8 g/dL (12.0-16.0); Mean Corp Hgb Conc. 32.8 g/dL (33.0-37.0); Mean Corpuscular Hgb 32.4 pg (27.0-31.0); Mean Corpuscular Volume 98.8 fL (81.0-99.0); Mean Platelet Volume 9.4 fL (7.4-10.4); Nucleated Red Blood Cells % 0.1 %; Platelet Count 236 10^3/uL (130-400); Red Blood Cell Count 3.33 10^6/uL (4.20-5.40); Red Cell Dist. Width 19.7 % (11.5-14.5); White Blood Cell Count 40.9 10^3/uL (4.8-10.8)
== END ==
LOC: REG 12:05
PROVIDERS: ATTENDING PHYSICIAN Internal Medicine Hematology & Oncology; FAMILY PHYSICIAN Physician Assistant Medical
DX: A41.9 Sepsis, unspecified organism (principal); E86.0 Dehydration; E87.6 Hypokalemia; E87.1 Hypo-osmolality and hyponatremia
CPT/HCPCS: 36415; 80053; 83735; 84100; 85025

== ENCOUNTER → 2023-10-17 13:30 | Outpatient (REF) | payer MEDICARE, OTHER, SELFPAY ==
[2023-10-17 09:43] LABS: ALT (SGPT) 13 U/L (0-35); AST (SGOT) 26 U/L (14-36); Albumin 4.5 g/dl (3.5-5.0); Alkaline Phosphatase 153 U/L (38-126); Blood Urea Nitrogen 22 mg/dl (7-17); Calcium 9.6 mg/dl (8.4-10.2); Carbon Dioxide 23 mmol/L (22-30); Chloride 101 mmol/L (98-107); Glucose 255 mg/dl (70-99); Magnesium 1.7 mg/dl (1.6-2.3); Potassium 4.2 mmol/L (3.5-5.1); Sodium 139 mmol/L (135-145); Total Bilirubin 0.6 mg/dl (0.2-1.3); Total Protein 6.7 g/dl (6.3-8.2); eGFR > 60.00
== END ==
LOC: OIDL 13:30
PROVIDERS: ATTENDING PHYSICIAN Internal Medicine Hematology & Oncology
DX: C50.411 Malignant neoplasm of upper-outer quadrant of right female breast (principal)
CPT/HCPCS: 80053; 83735

== ENCOUNTER 2023-10-23 11:57 | Emergency (ER) | payer MEDICARE, OTHER, SELFPAY ==
[2023-10-23 11:59] VITALS: BP 119/79
--- NOTE | 2023-10-23 14:13 | ED.GENMED ---
History of Present Illness
General
Chief Complaint: Abdominal Symptoms
Source: patient
Time Seen by Provider: 10/23/23 14:06
Travel History
Have you had any contact with someone who has COVID-19?: No
Do you have any symptoms of coronavirus? Fever > 100 degrees, chills, cough, shortness of breath, sore throat, loss of taste or smell, muscle aches, or headache?: No
History of Present Illness
History of Present Illness:
68-year-old female with past medical history of breast cancer, hypertension, hyperlipidemia, UTI presenting to the emergency department for evaluation of diarrhea x 2 days. Patient recently completed course of antibiotics for C. difficile colitis
has been feeling better, continues with chemotherapy for her breast cancer and states due to the amount of diarrhea she has had over the last 2 days has felt very weak and having a difficult time ambulating. She notes she feels very lightheaded
when going from sitting to standing. She does get intermittent fluid boluses between treatments for hydration because she is not eating or drinking as much. No fevers, chills, rigors, nausea or vomiting. No other concerns presently.
Past History
Past History
ED Past Medical History: Cancer, HTN, Hypercholesterolemia, Hypothyroidism and Other (Breast cancer, thyroid cancer, Parkinson's)
ED Past Surgical History: Gynecological and Other
Social History
Tobacco: Non-smoker
Alcohol: None
Drug: None
Personal:
Review of Systems
Review of Systems
All Other Systems: ROS reviewed and negative except as documented in HPI and ROS
Phy Exam
Physical Exam
Physical Exam:
GENERAL: Alert ,, thin, somewhat pale
EYE: clear conjunctiva b/l
HEAD: NCAT
ENT: o/p clr, mmm.
CARDIAC: Regular rate and rhythm .
LUNGS: Clear breath sounds bilaterally, no acute respiratory distress, no wheezes/rales/rhonchi
ABDOMEN: Soft, without focal tenderness, no r/g, no cvat
NEUROLOGICAL: Alert and oriented
SKIN: Warm and dry, skin intact.
MUSCULOSKELETAL: well perfused.
PSYCH: Normal and appropriate interaction.
Scores
Heart Failure Risk
Heart Failure Risk Score: Not Applicable
Heart Score for Chest Pain Patients
STEMI patient?: Not applicable
Withdrawal Assessment of Alcohol
Withdrawal Assessment Completed?: Not applicable
Course
Orders/Labs/Results
Orders:
Orders
10/23/23 13:58
CMP [Comprehensive Metabolic Panel] Urgent
Complete Blood Count/With Diff Urgent
Magnesium Urgent
10/23/23 14:06
STOOL [C difficile Antigen & Toxins] Urgent
ИРИНА Source: Feces/Stool
Specimen Description:
Stool Culture Urgent
ИРИНА Source: Feces/Stool
Specimen Description:
10/23/23 14:18
0.9% Sodium Chloride 1000 ml [Nss] 1,000 ml IV BOLUS
10/23/23 15:03
Magnesium Sulfate 1 G/D5w [Magnesium Sulfate] 1 gm in 100 ml IV NOW
10/23/23 16:47
Heparin Pf [Heparin Lock Flush] 500 unit IV NOW ONE
Abnormal Lab Results
10/23/23
13:58
RBC 2.88 L 10^6/uL
(4.20-5.40)
Hgb 9.3 L g/dL
(12.0-16.0)
Hct 28.9 L %
(37.0-47.0)
MCV 100.3 H fL
(81.0-99.0)
MCH 32.3 H pg
(27.0-31.0)
MCHC 32.2 L g/dL
(33.0-37.0)
RDW 18.1 H %
(11.5-14.5)
Plt Count 114 L 10^3/uL
(130-400)
MPV 11.0 H fL
(7.4-10.4)
Abs Immat Gran (auto) 1.0 H 10^3/uL
(0-0.05)
Absolute Lymphs (auto) 0.5 L 10^3/uL
(1.2-3.4)
Immature Gran % 16.2 H %
(0-0.5)
Lymphocytes % 7.9 L %
(20.5-51.1)
Monocytes % 1.5 L %
(1.7-9.3)
Carbon Dioxide 31 H mmol/L
(22-30)
BUN 18 H mg/dl
(7-17)
Creatinine 0.4 L mg/dL
(0.6-1.0)
Magnesium 1.4 L mg/dl
(1.6-2.3)
Total Protein 5.9 L g/dl
(6.3-8.2)
10/23/23 13:58
10/23/23 13:58
Vital Signs
Initial and Last Documented VS:
Initial Vital Signs
Temp Pulse Resp BP Pulse Ox
98.1 F 109 16 119/79 99
10/23/23 11:59 10/23/23 11:59 10/23/23 11:59 10/23/23 11:59 10/23/23 11:59
Last Documented Vital Signs
Temp Pulse Resp BP Pulse Ox
98.1 F 96 18 143/75 98
10/23/23 11:59 10/23/23 14:45 10/23/23 14:45 10/23/23 14:45 10/23/23 16:00
MDM/Problems Addressed
Differential Diagnosis Includes:
C. difficile colitis, hyponatremia, hypokalemia, hypomagnesemia, volume depletion
MDM/Problems Addressed:
68-year-old female presenting the emergency department for evaluation of continued diarrhea. Recent admission here found to be C. difficile colitis positive and was treated with IV vancomycin and ultimately switched to oral vancomycin. Patient
reported resolution of symptoms during that time. Over the last 2 days she has had recurring diarrhea prompting her visit to the ER. Noting feeling very weak and similar to when she was admitted earlier this month. Will check labs and stool
studies. Fluids ordered. Reassessment following.
Chronic conditions affecting care: Immunosuppressed and Cancer
Acute Exacerbation and/or Progression of Chronic Illness: Cancer
*Pulse Oximetry
Patient hypoxic: no
*Critical Care Note
Total Time (30-74mins, 75-104mins- exclusive of procedures): Not Applicable
Data Reviewed
Review of Other/Old Records Reveals: Labs, Records and Discharge Summary
Source: patient and records
Patient Management
Discussion with other providers: Fire Chief
Escalation/DeEscalation of care consider admission/obs:
Patient unable to have a bowel movement despite being observed in the ER for greater than 4 hours. Possibly related to her chemotherapy regimen. Patient with no hemodynamic instability, minimal electrolyte derangement. Feeling better following
fluids. Feels comfortable being discharged home. Has a follow-up visit with her oncologist tomorrow morning. Oncology was notified about patients ED work-up for tomorrow visit
ED Attending Note
-
Portions of this chart may have been created with voice recognition software.� Occasional wrong word or��sound alike� substitutions may have occurred due to the inherent limitations of voice recognition software.
Discharge Plan
Departure
Patient Disposition: Home (Routine Discharge)
Date of Disposition: 10/23/23
Time of Disposition: 16:36
Patient with high blood pressure during this ER visit?: Yes
Discharge Problem:
Diarrhea, Generalized weakness, Hypomagnesemia
Instructions: Dehydration, Adult (DC)
Prescriptions:
No Action
simvastatin 40 mg Tablet
40 mg PO HS
levothyroxine 75 mcg Tablet
75 mcg PO DAILY
losartan 25 mg Tablet
25 mg PO HS
Hold Instructions: Resume on 10/08/23.
rasagiline 1 mg Tablet
1 mg PO HS
Rytary 36.25-145 mg Capsule, Extended Release
1 cap PO TID
loperamide 2 mg Capsule
2 mg PO BIDPRN PRN (Reason: diarrhea)
Hold Instructions: Resume on 10/16/23.
ondansetron 8 mg Tablet,Disintegrating
8 mg PO Q8HPRN PRN (Reason: nausea/vomiting)
dexamethasone 4 mg Tablet
4 mg PO DIRECTED
Rx Instructions:
take one tablet 2 tablets 1 days before, 2 tablets then day of, and 2 tablets the day after chemo treatment.
methenamine hippurate [Hiprex] 1 gram Tablet
1 g PO BID
loratadine [Claritin] 10 mg Tablet
10 mg PO DAILY
vancomycin 125 mg capsule
125 mg PO QID Qty: 34 0RF
Referrals:
Abigail Hernández PA-C [Family Provider] -
Interventions
Interventions:
*Risk Screen - Suicide Last Done: 10/23/23 12:01
*General Assessment Last Done: 10/23/23 12:01
*Neglect/Abuse Screening Last Done: 10/23/23 12:01
ED- Fall Risk Assessment Last Done: 10/23/23 15:00
*ED COVID-19 Vaccine History Last Done: 10/23/23 15:00
LE-Wkmngx-Jmjzjudvfa Assessment Last Done: 10/23/23 14:02
Discharge Date and Time
Print Language: WOLOF
[2023-10-23] MEDS: NSS 1000 IV (14:19)
[2023-10-23 14:21] LABS: % Basophils 0.2 % (0-2); % Immature Granulocytes 16.2 % (0-0.5); % Lymphocytes 7.9 % (20.5-51.1); % Monocytes 1.5 % (1.7-9.3); % Neutrophils 74.2 % (42.2-75.2); Absolute Lymphocytes 0.5 10^3/uL (1.2-3.4); Absolute Monocytes 0.1 10^3/uL (0.1-0.6); Absolute Neutrophils 4.3 10^3/uL (1.4-6.5); Hematocrit 28.9 % (37.0-47.0); Hemoglobin 9.3 g/dL (12.0-16.0); Mean Corp Hgb Conc. 32.2 g/dL (33.0-37.0); Mean Corpuscular Hgb 32.3 pg (27.0-31.0); Mean Corpuscular Volume 100.3 fL (81.0-99.0); Nucleated Red Blood Cells % 0 %; Platelet Count 114 10^3/uL (130-400); Red Blood Cell Count 2.88 10^6/uL (4.20-5.40); Red Cell Dist. Width 18.1 % (11.5-14.5); White Blood Cell Count 5.9 10^3/uL (4.8-10.8)
[2023-10-23 14:23] LABS: ALT (SGPT) 32 U/L (0-35); AST (SGOT) 25 U/L (14-36); Albumin 3.7 g/dl (3.5-5.0); Alkaline Phosphatase 118 U/L (38-126); Blood Urea Nitrogen 18 mg/dl (7-17); Calcium 8.9 mg/dl (8.4-10.2); Carbon Dioxide 31 mmol/L (22-30); Chloride 99 mmol/L (98-107); Glucose 96 mg/dl (70-99); Magnesium 1.4 mg/dl (1.6-2.3); Potassium 3.7 mmol/L (3.5-5.1); Sodium 135 mmol/L (135-145); Total Protein 5.9 g/dl (6.3-8.2); eGFR > 60.00
[2023-10-23 14:45] VITALS: BP 143/75
[2023-10-23] MEDS: MAGNESIUM SULFATE 100 IV (15:30)
--- NOTE | 2023-10-23 17:04 | VATNOTE ---
left subq port deaccessed per protocol. with 500 units heparin infused prior to brisk blood return noted.
== END 2023-10-23 17:01 | disposition home or self-care (01) ==
LOC: EMR 11:57
PROVIDERS: EMERGENCY PHYSICIAN Student in an Organized Health Care Education/Training Program; FAMILY PHYSICIAN Physician Assistant Medical
DX: R53.1 Weakness (principal); R42 Dizziness and giddiness; R19.7 Diarrhea, unspecified; E83.42 Hypomagnesemia; C50.919 Malignant neoplasm of unspecified site of unspecified female breast; I10 Essential (primary) hypertension; E03.9 Hypothyroidism, unspecified; E78.00 Pure hypercholesterolemia, unspecified; Z87.440 Personal history of urinary (tract) infections; Z85.850 Personal history of malignant neoplasm of thyroid; Z88.1 Allergy status to other antibiotic agents
CPT/HCPCS: 99284; 96365; 96375; 96361; 80053; 83735; 85025

== ENCOUNTER → 2023-10-28 16:09 | Outpatient (REF) | payer MEDICARE, OTHER, SELFPAY ==
[2023-10-28 15:41] LABS: ALT (SGPT) < 10 U/L (0-35); AST (SGOT) 15 U/L (14-36); Albumin 3.4 g/dl (3.5-5.0); Alkaline Phosphatase 172 U/L (38-126); Blood Urea Nitrogen 22 mg/dl (7-17); Carbon Dioxide 30 mmol/L (22-30); Chloride 92 mmol/L (98-107); Glucose 98 mg/dl (70-99); Magnesium 1.3 mg/dl (1.6-2.3); Potassium 3.4 mmol/L (3.5-5.1); Sodium 132 mmol/L (135-145); Total Bilirubin 0.6 mg/dl (0.2-1.3); Total Protein 5.6 g/dl (6.3-8.2); eGFR > 60.00
== END ==
LOC: OIDL 16:09
PROVIDERS: ATTENDING PHYSICIAN Nurse Practitioner Adult Health
DX: C50.411 Malignant neoplasm of upper-outer quadrant of right female breast (principal)
CPT/HCPCS: 80053; 83735

== ENCOUNTER 2023-10-29 22:10 | Inpatient (IN) | payer MEDICARE, OTHER, SELFPAY ==
[2023-10-29 15:41] VITALS: BP 103/69
[2023-10-29 16:06] LABS: % Basophils 0.1 % (0-2); % Immature Granulocytes 2.8 % (0-0.5); % Lymphocytes 2.3 % (20.5-51.1); % Monocytes 3.8 % (1.7-9.3); Absolute Lymphocytes 0.9 10^3/uL (1.2-3.4); Absolute Monocytes 1.4 10^3/uL (0.1-0.6); Absolute Neutrophils 33.9 10^3/uL (1.4-6.5); Hematocrit 27.1 % (37.0-47.0); Hemoglobin 8.9 g/dL (12.0-16.0); Mean Corp Hgb Conc. 32.8 g/dL (33.0-37.0); Mean Corpuscular Hgb 31.9 pg (27.0-31.0); Mean Corpuscular Volume 97.1 fL (81.0-99.0); Mean Platelet Volume 9.3 fL (7.4-10.4); Nucleated Red Blood Cells % 0 %; Platelet Count 255 10^3/uL (130-400); Red Blood Cell Count 2.79 10^6/uL (4.20-5.40); Red Cell Dist. Width 17.2 % (11.5-14.5); White Blood Cell Count 37.2 10^3/uL (4.8-10.8)
[2023-10-29 16:23] LABS: ALT (SGPT) < 10 U/L (0-35); AST (SGOT) 19 U/L (14-36); Albumin 3.2 g/dl (3.5-5.0); Alkaline Phosphatase 165 U/L (38-126); Blood Urea Nitrogen 20 mg/dl (7-17); Calcium 8.7 mg/dl (8.4-10.2); Carbon Dioxide 28 mmol/L (22-30); Chloride 94 mmol/L (98-107); Glucose 115 mg/dl (70-99); Potassium 3.8 mmol/L (3.5-5.1); Sodium 132 mmol/L (135-145); Total Bilirubin 0.6 mg/dl (0.2-1.3); Total Protein 5.5 g/dl (6.3-8.2); eGFR > 60.00
--- NOTE | 2023-10-29 19:09 | ED.GENMED ---
History of Present Illness
General
Chief Complaint: Rectal Bleeding
Source: patient
Exam Limitations: none
Time Seen by Provider: 10/29/23 18:25
Nursing documentation reviewed up to this point in time: agreed with
Travel History
Have you had any contact with someone who has COVID-19?: No
Do you have any symptoms of coronavirus? Fever > 100 degrees, chills, cough, shortness of breath, sore throat, loss of taste or smell, muscle aches, or headache?: No
History of Present Illness
History of Present Illness:
Patient with history of breast cancer, status postchemotherapy 2 weeks ago, presents to ED secondary to continual generalized weakness along with decreased appetite, as well as bowel movement yesterday, which appeared to be bloody in the toilet.
Patient does not any blood thinning medications. Patient denies fever or chills. Denies vomiting. Patient does report lower abdominal pain however. Patient does report also receiving IV fluids at infusion center yesterday.
Past History
Past History
ED Past Medical History: Cancer, HTN, Hypercholesterolemia, Hypothyroidism and Other (Breast cancer, thyroid cancer, Parkinson's)
ED Past Surgical History: Gynecological and Other
Social History
Tobacco: Non-smoker
Alcohol: None
Drug: None
Personal:
Review of Systems
Review of Systems
Allergies reviewed?: Yes
All Other Systems: ROS reviewed and negative except as documented in HPI and ROS
Constitutional: Reports no symptoms
EENT: Reports no symptoms
Respiratory: Reports no symptoms; Denies trouble breathing
Cardiac: Reports no symptoms
ABD/GI: Reports bloody stools
Musculoskeletal: Reports no symptoms
Skin: Reports no symptoms
Neurological: Reports weakness; Denies dizzy
Phy Exam
Physical Exam
Physical Exam:
Physical Exam
General: no apparent distress, not acutely ill. afebrile
Head: nc/at. eomi
Neck: supple. no meningeal signs.
Heart: s1/s2 regular rate and rhythm, no murmur. equal radial pulses.
Lungs: no acute respiratory distress. clear bilaterally
Abdomen: normal bowel sounds. not tender.
Neuro: alert and oriented. no focal neurological deficits
Skin: no rash
Psychiatric: well kept. interactive and cooperative
Extremities: no edema. no calf tenderness.
Course
Orders/Labs/Results
Orders:
Orders
10/29/23 15:58
CMP [Comprehensive Metabolic Panel] Urgent
Complete Blood Count/With Diff Urgent
Magnesium Urgent
Comment: ADD ON
10/29/23 18:37
Add On- LAB Urgent
Tests Added?: magnesium
CT Abd/pelvis W Iv Cont Urgent
Comment:
Reason For Exam: RLQ pain
0.9% Sodium Chloride 1000 ml [Nss] 1,000 ml IV BOLUS
10/29/23 20:19
STOOL [C difficile Antigen & Toxins] Urgent
ИРИНА Source: Feces/Stool
Specimen Description:
Date Specimen was Collected: 10/30/23
Time Specimen was Collected: 02:05
Stool Culture Urgent
ИРИНА Source: Feces/Stool
Specimen Description:
Date Specimen was Collected: 10/30/23
Time Specimen was Collected: 02:05
10/29/23 21:37
Admit/Transfer Patient As Directed
Co-Sign Provider:
Level of Care: Inpatient admission
Assign to:: Telemetry
Physician / Group: Ramana
Diagnosis: Colitis
Reason for Telemetry: Arrhythmia
Date to Stop Telemetry: 11/01/23
Time to Stop Telemetry: 11:00
Reason for Hospitalization: Colitis
Expected length of stay greater than two midnights?: Yes
ELOS- Estimated Length of Stay in days: 3
I certify the patient meets the requirements for IP care: Yes
10/29/23 21:39
Code Status As Directed
Resuscitation Status: Full Code
10/29/23 22:00
Flush (0.9% Sodium Chloride) [Flush (Nss)] See Dose Instructions IV PER PROTOCOL
10/29/23 22:01
0.9% Sodium Chloride 1000 ml [Nss] 1,000 ml IV 100 mls/hr
10/30/23 00:00
CR Chest - 2 Views Urgent
Reason For Exam: Cough
10/30/23 01:02
Acetaminophen [Tylenol] 650 mg PO Q4HPRN PRN
Ondansetron Injectable [Zofran] 4 mg IV Q6HPRN PRN
Vancomycin HCl [Firvanq] 125 mg PO Q6
carbidopa-levodopa [Rytary] See Dose Instructions PO TID
10/30/23 01:02
Activity As Directed
Activity Level: Ambulate
With Assistance
I/O [Intake/ Output] As Directed
Frequency: Per unit guidelines
Orthostatic Vital Signs As Directed
Orthostatic VS Frequency: BID
Pneumatic Compression Sleeves As Directed
Type: Knee high
Precautions As Directed
Type of Precautions: Contact
Vital Signs As Directed
Frequency: Per unit guidelines
Weight As Directed
Frequency: Daily
Oxygen Therapy [O2 Therapy] [RESP] Routine
Titrate/Wean O2 to maintain O2 sat greater than (%): 94
Ot Eval And Treat Routine
PT Consult [Pt Eval And Treat] Routine
Activity Level: Ambulate
With Assistance
DX Deep Vein Thrombosis Video Routine
10/30/23 02:10
Stool For WBC Urgent
ИРИНА Source: Feces/Stool
Specimen Description:
Date Specimen was Collected: 10/30/23
Time Specimen was Collected: 02:06
10/30/23 05:18
Basic Metabolic Panel IN AM
Complete Blood Count/No Diff IN AM
10/30/23 06:00
Levothyroxine [Synthroid] 75 mcg PO DAILY @ 0600
10/30/23 18:00
Enoxaparin Sodium [Lovenox] 30 mg SC QPM
11/01/23 11:00
DC Protocol for Telemetry ONCE
Abnormal Lab Results
10/29/23
15:58
WBC 37.2 H 10^3/uL
(4.8-10.8)
RBC 2.79 L 10^6/uL
(4.20-5.40)
Hgb 8.9 L g/dL
(12.0-16.0)
Hct 27.1 L %
(37.0-47.0)
MCH 31.9 H pg
(27.0-31.0)
MCHC 32.8 L g/dL
(33.0-37.0)
RDW 17.2 H %
(11.5-14.5)
Abs Immat Gran (auto) 1.0 H 10^3/uL
(0-0.05)
Absolute Neuts (auto) 33.9 H 10^3/uL
(1.4-6.5)
Absolute Lymphs (auto) 0.9 L 10^3/uL
(1.2-3.4)
Absolute Monos (auto) 1.4 H 10^3/uL
(0.1-0.6)
Immature Gran % 2.8 H %
(0-0.5)
Neutrophils % 91.0 H %
(42.2-75.2)
Lymphocytes % 2.3 L %
(20.5-51.1)
Sodium 132 L mmol/L
(135-145)
Chloride 94 L mmol/L
(98-107)
BUN 20 H mg/dl
(7-17)
Creatinine 0.5 L mg/dL
(0.6-1.0)
Glucose 115 H mg/dl
(70-99)
Alkaline Phosphatase 165 H U/L
(38-126)
Total Protein 5.5 L g/dl
(6.3-8.2)
Albumin 3.2 L g/dl
(3.5-5.0)
10/29/23 15:58
10/29/23 15:58
Vital Signs
Initial and Last Documented VS:
Initial Vital Signs
Temp Pulse Resp BP Pulse Ox
98.8 F 119 18 103/69 98
10/29/23 15:41 10/29/23 15:41 10/29/23 15:41 10/29/23 15:41 10/29/23 15:41
Last Documented Vital Signs
Temp Pulse Resp BP Pulse Ox
98.1 F 109 32 118/68 96
10/29/23 22:21 10/30/23 02:08 10/30/23 02:08 10/30/23 00:42 10/30/23 02:08
MDM/Problems Addressed
MDM/Problems Addressed:
CT abd/pel: pancolitis
Discussed with (Gi) - recommends holding off abx for now and hydrate, until c.dif/stool cx available.
*Critical Care Note
Total Time (30-74mins, 75-104mins- exclusive of procedures): Not Applicable
ED Attending Note
-
Portions of this chart may have been created with voice recognition software.� Occasional wrong word or��sound alike� substitutions may have occurred due to the inherent limitations of voice recognition software.
Discharge Plan
Departure
Patient Disposition: Admit
Date of Disposition: 10/29/23
Time of Disposition: 20:37
Admit to: Med/Surg
Presentation/result/management discussed w/ accepting MD/DO: Hospitalist
Discharge Problem:
Dehydration, Pancolitis
Interventions
Interventions:
*Risk Screen - Suicide Last Done: 10/29/23 15:41
*General Assessment Last Done: 10/29/23 19:45
*Neglect/Abuse Screening Last Done: 10/29/23 15:41
ED- Fall Risk Assessment Last Done: 10/29/23 19:45
*ED COVID-19 Vaccine History Last Done: 10/29/23 15:41
QH-Hgjeyh-Rksdjfgytz Assessment Last Done: 10/29/23 19:45
ED- Cardiac Assessment Last Done: 10/29/23 19:45
ED- Pulmonary Assessment Last Done: 10/29/23 19:45
[2023-10-29 19:18] LABS: Magnesium 1.6 mg/dl (1.6-2.3)
[2023-10-29 19:26] VITALS: BP 119/69
[2023-10-29] MEDS: NSS 1000 IV ×2 (20:05→22:02)
[2023-10-29 20:38] VITALS: BP 116/61
[2023-10-29 21:00] VITALS: BP 113/69
--- NOTE | 2023-10-29 21:41 | HPS.HSE ---
Family Physician
-
Family Physician: Abigail Hernández PA-C
Chief Complaint
-
Diarrhea / Weakness
History of Present Illness
Patient is a 68y F with PMH significant for breast cancer on chemotherapy who presents to ED complaining of diarrhea, weakness and fatigue. Patient has had issues with intermittent diarrhea since beginning chemotherapy. She has been on
supportive care consisting of intermittent IVFs at [facility] as well as Imodium PRN. In early September, patient presented to the ED where she was diagnosed with CDiff. She was treated with a course of oral vancomycin and notes that her diarrhea did improve.
She has continued her chemo regimen (just completed her taxo / carbo portion) and again developed diarrhea this past weekend.
She reports about 9 episodes of loose or watery stools daily. She has some crampy RLQ pain. She felt that she saw some streaks of blood in her stool at home - though she is heme negative here in the ED.
Patient denies any fevers / chill, N/V or other complaints.
Patient did take Imodium over this past weekend given recurrent diarrhea. She took two doses today.
Patient would have completed her Vanco course on 10/10 or 10/11.
She states that she does receive GSCF with her chemo - last dose of which would have been this past Friday.
Medical History
Past Medical History
Past Medical History: Reports Other
Additional Past Medical History:
Stage III Breast CA s/p Lumpectomy
Parkinson's Disease
Essential Hypertension
Hyperlipidemia
Medullary Thyroid CA s/p Thyroidectomy
Past Surgical History: Reports Other
Additional Past Surgical History:
Right Lumpectomy with Lymph Node Dissection
Thyroidectomy
Social History
Tobacco: Non-smoker
Alcohol: None
Drug: None
Family History
Family History: Not pertinent
Allergies / Home Medications
Allergies reflects when Allergies were last updated in [employer].
Home Medications with original date entered in [employer]
Allergy/Medication List:
Allergies
Allergy/AdvReac Type Severity Reaction Status Date / Time
Sulfa (Sulfonamide Allergy flu like Verified 10/29/23 15:39
Antibiotics) symptoms
Home Medications
carbidopa ER 36.25 mg-levodopa 145 mg capsule,extended release (Rytary) 1 cap PO TID PARKINSON 05/28/23
levothyroxine 75 mcg tablet 75 mcg PO DAILY Thyroid 05/28/23
rasagiline 1 mg tablet 1 mg PO HS PARKINSON 05/28/23
simvastatin 40 mg tablet 40 mg PO HS High Cholesterol 05/28/23
loperamide 2 mg capsule 2 mg PO BIDPRN PRN diarrhea 07/12/23
ondansetron 8 mg disintegrating tablet 8 mg PO Q8HPRN PRN nausea/vomiting 07/12/23
loratadine 10 mg tablet (Claritin) 10 mg PO DAILY PRN Allergies 09/30/23
Review of Systems
-
History Source: Patient
A 12 point ROS was completed and negative except as noted: Yes
Constitutional: Reports Fatigue; Denies Fever or Chills
Respiratory: Denies Cough or Trouble Breathing
Cardiac: Denies Chest Pain or Palpitations
Abdomen/GI: Reports Abdominal Pain, Diarrhea and Bloody Stools (some streaks per patient); Denies Nausea or Vomiting
: Denies Dysuria, Frequency or Incontinence
Neurological: Denies Dizzy or Headache
Psych: Denies Depression or Anxiety
Physical Exam
Vital Signs
Vital Signs
Temp Pulse Resp BP Pulse Ox
98.8 F 119 18 103/69 99
10/29/23 15:41 10/29/23 15:41 10/29/23 15:41 10/29/23 15:41 10/29/23 19:45
Physical Exam
General: Other (68y frail, cachectic female in no acute distress.)
HEENT: PERRLA and Other (dry MM.)
Respiratory: Other (Cough with deep inspiration. Lung barnard are otherwise clear.)
Cardiac: S1/S2 and Regular Rhythm; No Murmur
GI: Soft, Non Distended, Normal Bowel Sounds and Other (Pos tenderness without rebound/guarding in the RLQ. Pos BS.)
Musculoskeletal: No Clubbing, No Cyanosis and No Edema
Neuro: AO x 3
Laboratory Results
-
10/29/23 15:58
10/29/23 15:58
Laboratory Results
Total Bilirubin 0.6 mg/dl (0.2-1.3) 10/29/23 15:58
AST 19 U/L (14-36) 10/29/23 15:58
ALT < 10 U/L (0-35) 10/29/23 15:58
Alkaline Phosphatase 165 U/L (38-126) H 10/29/23 15:58
Impression/Plan
-
A/P: Patient is a 68y F with PMH significant for breast cancer on chemotherapy who presents to ED complaining of diarrhea x several days and general weakness / fatigue.
Recurrent Diarrhea
Pancolitis by CT
- Admit for further evaluation and treatment.
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
- ID evaluation for additional recommendations.
- No further Imodium.
- Supportive care including IVF replacement.
Leukocytosis
- Marked leukocytosis which may be consistent with CDiff but also with recent GCSF administration.
- Follow for improvement with PO abx and / or time.
Breast Cancer
- Currently on maintenance chemo regimen to complete one year. Just completed taxo / carbo portion.
- Plan is for eventual XRT - not yet started.
- Follow-up with Oncology after discharge.
Parkinson's Disease
- Stable. Continue Rytary / Rasagiline.
Benign Hypertension
- Stable. Not currently on any antihypertensive medications.
- Follow for any changes.
Hypothyroidism
- s/p thyroidectomy due to medullary thyroid cancer.
- Continue T4 supplementation.
DVT Prophylaxis: Lovenox
Code Status: Full
[2023-10-29 22:00] VITALS: BP 100/60
[2023-10-29 22:14] VITALS: BP 103/73; BP 105/66; BP 92/58; PULSE 102; PULSE 105; PULSE 97
[2023-10-29 23:02] LABS: Glucose - Point of Care 169 mg/dl (70-99)
[2023-10-30] VITALS (8 sets, daily range): BP systolic 110–130; BP diastolic 66–84; PULSE 113–122; BMI 19.5
[2023-10-30] MEDS: RASAGILINE MESYLATE 1 MG PO ×2 (00:35→21:05)
[2023-10-30] MEDS: FIRVANQ 125 MG PO ×2 (02:16→08:07)
--- NOTE | 2023-10-30 04:31 | W.PN.UPDATE ---
Update Note
Progress Note Update
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 Patient seen and evaluated, confusion noted, easily reoriented. 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
treatment?
[2023-10-30 06:50] LABS: Hematocrit 23.5 % (37.0-47.0); Hemoglobin 7.7 g/dL (12.0-16.0); Mean Corp Hgb Conc. 32.8 g/dL (33.0-37.0); Mean Corpuscular Hgb 32.5 pg (27.0-31.0); Mean Corpuscular Volume 99.2 fL (81.0-99.0); Mean Platelet Volume 9.4 fL (7.4-10.4); Platelet Count 237 10^3/uL (130-400); Red Blood Cell Count 2.37 10^6/uL (4.20-5.40); Red Cell Dist. Width 17.3 % (11.5-14.5); White Blood Cell Count 32.6 10^3/uL (4.8-10.8)
[2023-10-30] MEDS: NSS 1000 IV ×2 (07:02→17:33)
[2023-10-30 07:06] LABS: Blood Urea Nitrogen 17 mg/dl (7-17); Calcium 8.1 mg/dl (8.4-10.2); Carbon Dioxide 27 mmol/L (22-30); Chloride 99 mmol/L (98-107); Glucose 90 mg/dl (70-99); Potassium 3.2 mmol/L (3.5-5.1); Sodium 133 mmol/L (135-145); eGFR > 60.00
[2023-10-30] MEDS: SYNTHROID 75 MCG PO (07:21)
[2023-10-30] MEDS: KCL 40 MEQ PO (09:37)
--- NOTE | 2023-10-30 10:05 | CM ---
Patient seen in the Ed with physician. Patient stated that she was recently here at and nothing has changed. Patient lives with spouse in a split level home. Patient stated there are steps to go anywhere. Patient was independent prior to
admission. Patient does drive but has been to shaky to do much. Patient continues with Chemo/pause at this time. Patient has not had VN or SNF. Patient PCP is Rasheeda and she uses [email or web address] in [place]. Patient plan is to return home with no
needs anticipated. CM will continue to follow for discharge planning needs.
Plan; home with no needs.
--- NOTE | 2023-10-30 10:11 | W.PN.HOSP.TC ---
Today's Communication/Plan
-
change PO vanco to Dificid
consult heme
cont IVF
cont clears
Assessment / Plan
Assessment / Plan
pt is a 68 year old female
Recurrent C. diff Diarrhea--Pancolitis by CT--stop PO vanco and change to Dificid--await ID input
Leukocytosis--Marked leukocytosis which may be consistent with C. Diff but also with recent GCSF administration--consult heme
Breast Cancer--on active treatment--Currently on maintenance chemo regimen to complete one year--Just completed taxo/carbo portion--Plan is for eventual XRT - not yet started.
Parkinson's Disease - Stable. Continue Rytary / Rasagiline.
Essential Hypertension- Stable. Not currently on any antihypertensive medications.
Hypothyroidism- s/p thyroidectomy due to medullary thyroid cancer-- Continue T4 supplementation.
DVT Prophylaxis: Lovenox
Code Status: Full
Anticipated Discharge: > 48 hours
Subjective/Interval History
-
Date of Service: October 30, 2023
pt still with diarrhea
Objective Data
-
Labs:
Laboratory Results
10/30/23
05:18
WBC 32.6 H
Hgb 7.7 L
Hct 23.5 L
Plt Count 237
Sodium 133 L
Potassium 3.2 L
Chloride 99
Carbon Dioxide 27
BUN 17
Creatinine 0.3 L
Glucose 90
Calcium 8.1 L
Vital Signs:
max temp for 24 hours
10/29/23
15:41
Temp 98.8 F
Vital Signs
Temp Pulse Resp BP Pulse Ox
98.1 F 109 32 118/68 96
10/29/23 22:21 10/30/23 02:08 10/30/23 02:08 10/30/23 00:42 10/30/23 02:08
I&O
10/29/23 10/30/23 10/31/23
06:59 06:59 06:59
Intake Total 1000 / 1000
Balance 1000 / 1000
Review of Systems
-
All other systems: Reviewed and negative
Abdomen/GI: Reports Abdominal Pain and Diarrhea
Physical Exam
-
General: Well Developed, Appears Chronically Ill and Cachectic
HEENT: Normocephalic and Atraumatic
Respiratory: Clear to Auscultation and Other (dry small cough); Negative Wheezes or Rhonchi
Cardiac: Regular Rhythm and S1/S2; Negative Murmur
GI: Soft, Nondistended, Normal Bowel Sounds and Tender (RLQ no guarding or rebound)
Musculoskeletal: No Clubbing, No Cyanosis and No Edema
Skin: Warm
Neuro: Awake
Psych: Calm
[2023-10-30] MEDS: DIFICID 200 MG PO ×2 (11:18→21:05)
--- NOTE | 2023-10-30 11:51 | CON.ONC ---
Impression
Impression
Profuse diarrhea suspect refractory C. difficile
HER2 positive breast carcinoma status post TCHP
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
Electrolyte imbalance
Parkinson's disease with recent confusion
Hypertension
Hyperlipidemia
Plan
Plan
Agree with change to Dificid
Hydrate and replete electrolytes
Recent abnormal MRI of the kidneys creatinine stable
Monitor CBC received growth factor following treatment
Consider MRI of the brain should confusion persist
May not be able to continue Herceptin if diarrhea persist beyond treatment of C. difficile
Will follow
Patient History
History of Present Illness
Patient is a 68y F with PMH significant for breast cancer on chemotherapy who presents to ED complaining of diarrhea, weakness and fatigue. She has recently completed carboplatin and Taxotere with trastuzumab and received growth factor support.
Unfortunately, she continues to have protracted diarrhea with electrolyte insufficiency. She also reports episodes of TME in the last week. She was recently diagnosed with C. difficile colitis which appears to be presumably refractory to
vancomycin given the degree of her diarrhea. She reports about 9 episodes of loose or watery stools daily. She has some crampy RLQ pain. She felt that she saw some streaks of blood in her stool at home - though she is heme negative here in the
ED.Patient denies any fevers / chill, N/V or other complaints. Patient did take Imodium over this past weekend given recurrent diarrhea. Patient would have completed her Vanco course on 10/10 or 10/11.
Past-Medical/Surgical History
Past Medical History
Past Medical History: Reports Other
Additional Past Medical History:
Stage III Breast CA s/p Lumpectomy
Parkinson's Disease
Essential Hypertension
Hyperlipidemia
Medullary Thyroid CA s/p Thyroidectomy
Past Surgical History
Additional Past Surgical History:
Right Lumpectomy with Lymph Node Dissection
Thyroidectomy
Social History
Tobacco: Non-smoker
Alcohol: None
Drug: None
Family History
Family History: Not pertinent
Patient Medication
�Medication �Instructions �Recorded �Confirmed �Last Taken �Type
carbidopa ER 36.25 mg-levodopa 145 1 cap PO TID PARKINSON 05/28/23 10/29/23 10/29/23 History
mg capsule,extended release
(Rytary)
levothyroxine 75 mcg tablet 75 mcg PO DAILY Thyroid 05/28/23 10/29/23 10/29/23 History
rasagiline 1 mg tablet 1 mg PO HS PARKINSON 05/28/23 10/29/23 10/28/23 History
simvastatin 40 mg tablet 40 mg PO HS High Cholesterol 05/28/23 10/29/23 10/28/23 History
loperamide 2 mg capsule 2 mg PO BIDPRN PRN diarrhea 07/12/23 10/29/23 09/30/23 History
ondansetron 8 mg disintegrating 8 mg PO Q8HPRN PRN nausea/vomiting 07/12/23 10/29/23 1 Week Ago History
tablet ~07/05/23
loratadine 10 mg tablet (Claritin) 10 mg PO DAILY PRN Allergies 09/30/23 10/29/23 09/30/23 History
Active Medications
Generic Name Dose Route Start Last Admin
Trade Name Freq PRN Reason Stop Dose Admin
Acetaminophen 650 mg 10/30/23 01:02
Acetaminophen 325 Mg Tablet PO 11/27/23 01:01
Q4HPRN PRN
Mild Pain / Temp > 101
Enoxaparin Sodium 30 mg 10/30/23 18:00
Enoxaparin Sodium 30 Mg/0.3 Ml Syringe SC 11/27/23 17:59
QPM DAWSON
Fidaxomicin 200 mg 10/30/23 11:00 10/30/23 11:18
Fidaxomicin (Dificid) 200 Mg Tablet PO 200 mg
BID DAWSON Administration
Sodium Chloride 1,000 mls @ 100 mls/hr 10/29/23 22:01 10/30/23 07:02
Nss IV 1,000 mls
.Q10H DAWSON Administration
Levothyroxine Sodium 75 mcg 10/30/23 06:00 10/30/23 07:21
Levothyroxine 75 Mcg Tablet PO 11/27/23 05:59 75 mcg
DAILY @ 0600 DAWSON Administration
Carbidopa-Levodopa [ 0 cap 10/30/23 01:02
Rytary] 36.25-145 Mg PO 11/27/23 01:01
Capsule, Extended TID DAWSON
Release 1 Cap Po Tid
Ondansetron HCl 4 mg 10/30/23 01:02
Ondansetron 4 Mg/2 Ml Vial IV 11/27/23 01:01
Q6HPRN PRN
nausea and vomiting
Rasagiline 1 mg 10/30/23 00:30 10/30/23 00:35
Rasagiline (Azilect) 0.5 Mg Tablet (Non-Form) PO 11/27/23 00:29 1 mg
HS DAWSON Administration
Sodium Chloride 0 flush 10/29/23 22:00
Sodium Chloride 0.9% (Flush) Syringe IV 11/26/23 21:59
PER PROTOCOL DAWSON
Review of Systems
-
Negative for systems complaints other than those noted in the HPI
Physical Exam
-
Physical Exam
General: frail, cachectic
HEENT: No scleral icterus mucous membranes dry
Respiratory: Cough with deep inspiration but clear
Cardiac: S1/S2 and Regular Rhythm; No Murmur
GI: Soft, Non Distended, Normal Bowel Sounds and Other (Pos tenderness without rebound/guarding in the RLQ. Pos BS.)
Musculoskeletal: No Clubbing, No Cyanosis and No Edema
Neuro: AO x 3
Labs
Lab Results
WBC 32.6 10^3/uL (4.8-10.8) H 06/06/24 05:18
RBC 2.37 10^6/uL (4.20-5.40) L 10/30/23 05:18
Hgb 7.7 g/dL (12.0-16.0) L 10/30/23 05:18
Hct 23.5 % (37.0-47.0) L 10/30/23 05:18
MCV 99.2 fL (81.0-99.0) H 10/30/23 05:18
MCH 32.5 pg (27.0-31.0) H 10/30/23 05:18
MCHC 32.8 g/dL (33.0-37.0) L 10/30/23 05:18
RDW 17.3 % (11.5-14.5) H 10/30/23 05:18
Plt Count 237 10^3/uL (130-400) 10/30/23 05:18
MPV 9.4 fL (7.4-10.4) 10/30/23 05:18
Abs Immat Gran (auto) 1.0 10^3/uL (0-0.05) H 10/29/23 15:58
Absolute Neuts (auto) 33.9 10^3/uL (1.4-6.5) H 10/29/23 15:58
Absolute Lymphs (auto) 0.9 10^3/uL (1.2-3.4) L 10/29/23 15:58
Absolute Monos (auto) 1.4 10^3/uL (0.1-0.6) H 10/29/23 15:58
Absolute Eos (auto) 0.0 10^3/uL (0-0.7) 10/29/23 15:58
Absolute Basos (auto) 0.0 10^3/uL (0-0.2) 10/29/23 15:58
Immature Gran % 2.8 % (0-0.5) H 10/29/23 15:58
Neutrophils % 91.0 % (42.2-75.2) H 10/29/23 15:58
Lymphocytes % 2.3 % (20.5-51.1) L 10/29/23 15:58
Monocytes % 3.8 % (1.7-9.3) 10/29/23 15:58
Eosinophils % 0.0 % (0-6) 10/29/23 15:58
Basophils % 0.1 % (0-2) 10/29/23 15:58
Creatinine 0.3 mg/dL (0.6-1.0) L 10/30/23 05:18
Vital Signs
Vital Signs
Temp Pulse Resp BP Pulse Ox
98.0 F 105 16 126/71 100
10/30/23 11:24 10/30/23 11:24 10/30/23 11:24 10/30/23 11:24 10/30/23 11:35
--- NOTE | 2023-10-30 11:58 | CON.ID ---
Consultation
-
Date/Time Consultation Requested: 10/30/2023 01:02
Date/Time Consultation Performed: 10/30/2023 1200
Requesting Provider: Dr. Rodriguez
Performing Provider: Dr. Barbosa
Reason for Consultation: C. difficile
Chief Complaint / Past History
History of Present Illness
Joan James is a 68-year-old female being evaluated at the request of Dr. Rodriguez in regards to diarrhea. History is obtained from chart review, along with patient interview.
The patient has a history of breast cancer, and has been on chemotherapy since May 2023. She reports that she has had ongoing issues with diarrhea since initiation of chemotherapy, and has been receiving a reduced dose of chemotherapy.
She presented to the emergency room here at [facility] on 09/29 following a syncopal episode at home earlier in the morning. She was sent over at that time from her oncologist at [place]. During that hospitalization she was diagnosed with
C. difficile, and was discharged on a course of enteral vancomycin, which she reports she completed.
She reports over the past week she has had ongoing diarrhea, and she has been using Imodium. She presented back to the hospital secondary to continued generalized weakness, decreased appetite and concern for possible dehydration. She admits to
some lower abdominal discomfort. ER workup has revealed the presence of marked leukocytosis. Since admission, she has been tested for C. difficile and found to be positive again. She has been started on fidaxomicin.
Currently she reports watery diarrhea approximately 10 times per day. She denies any fevers.
Past History
Additional Past Medical History:
Stage III breast cancer
Hx thyroid cancer
Parkinson's disease
HTN
Dyslipidemia
Hypothyroidism
Past Surgical History: Gynecological
Additional Past Surgical History:
Lumpectomy
Allergy History:
Sulfa (Sulfonamide Antibiotics) Allergy (Verified 10/29/23 15:39)
flu like symptoms
Medications Reviewed: Yes
Current Antibiotics:
Fidaxomicin
Social History
Tobacco: Non-Smoker
Alcohol: None
Drug: None
Personal:
Employment: Retired
Review of Systems
Vital Signs
Temp Pulse Resp BP Pulse Ox
98.0 F 105 16 126/71 100
10/30/23 11:24 10/30/23 11:24 10/30/23 11:24 10/30/23 11:24 10/30/23 11:35
Physical Exam
Physical Exam
Constitutional: No Acute Distress, Comfortable, Chronically Ill, Non-toxic and Cachetic
Head: Normocephalic
Eyes: Pupils Equal, Pupils Round, No Conjunctival Hemorrhage and Sclera Anicteric
Oral: No Thrush and No Ulcers
Cardiovascular: S1/S2; Negative S3/S4 or Murmur
Pulmonary: Clear and Non Labored; Negative Wheezes or Rales
Gastrointestinal: Soft, Non Tender and Non Distended
Extremities: Edema (trace); Negative Clubbing or Cyanosis
Skin: Warm and Dry; Negative Rash or Jaundice
Neurological: Awake and Alert
Psychological: Calm
Lab / Diagnostic Study Results
10/30/23 05:18
10/30/23 05:18
Abs Immat Gran (auto) 1.0 10^3/uL (0-0.05) H 10/29/23 15:58
Absolute Neuts (auto) 33.9 10^3/uL (1.4-6.5) H 10/29/23 15:58
Absolute Lymphs (auto) 0.9 10^3/uL (1.2-3.4) L 10/29/23 15:58
Absolute Monos (auto) 1.4 10^3/uL (0.1-0.6) H 10/29/23 15:58
Absolute Basos (auto) 0.0 10^3/uL (0-0.2) 10/29/23 15:58
Immature Gran % 2.8 % (0-0.5) H 10/29/23 15:58
Neutrophils % 91.0 % (42.2-75.2) H 10/29/23 15:58
Lymphocytes % 2.3 % (20.5-51.1) L 10/29/23 15:58
Monocytes % 3.8 % (1.7-9.3) 10/29/23 15:58
Eosinophils % 0.0 % (0-6) 10/29/23 15:58
Basophils % 0.1 % (0-2) 10/29/23 15:58
Microbiology Results
Micro:
10/30/23 02:10 Salmonella/Shigella Culture - Pending
Feces/Stool Campylobacter Culture - Pending
Shiga Toxin Test - Pending
Stool Leukocytes - Pending
10/30/23 02:10 C. difficile GDH Antigen & Toxins - Final
Feces/Stool Toxigenic C.difficile Positive
Imaging:
10/29/2023 CT abdomen/pelvis with contrast: Findings suggest moderate pancolitis. There is moderate fecal material throughout the colon. Mild gallbladder distention with suggestion of mild intrahepatic biliary dilatation. Please see full dictation
for additional detail.
Assessment / Plan
Recurrent C. difficile diarrhea/colitis
Leukocytosis
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
Stage III breast cancer
Hx thyroid cancer
Parkinson's disease
HTN
Dyslipidemia
Hypothyroidism
Recommendations:
Agree with transition to oral fidaxomicin given recurrent nature of C. difficile, and the fact that the patient is immunocompromised.
Would complete a 14-day course.
Trend white count, temperature curve and stool output/consistency.
Monitor abdominal discomfort.
--- NOTE | 2023-10-30 16:53 | PTCARENOTE ---
Patient brought medication from home for Rytary 48.75/195.. Dose verified with dr. Rodriguez. New verbal order for Rytary 48.75/195mg one cap po tid. Order in place.
[2023-10-30] MEDS: NON-FORMULARY ITEM 1 CAP PO ×2 (17:31→21:05)
[2023-10-30] MEDS: LOVENOX 30 MG SC (17:31)
[2023-10-31] VITALS (8 sets, daily range): BP systolic 99–123; BP diastolic 65–81; PULSE 98–108; BMI 19.3
[2023-10-31] MEDS: NSS 1000 IV (02:10)
[2023-10-31] MEDS: SYNTHROID 75 MCG PO (06:23)
[2023-10-31 07:02] LABS: Hematocrit 22.6 % (37.0-47.0); Hemoglobin 7.6 g/dL (12.0-16.0); Mean Corp Hgb Conc. 33.6 g/dL (33.0-37.0); Mean Corpuscular Hgb 32.9 pg (27.0-31.0); Mean Corpuscular Volume 97.8 fL (81.0-99.0); Mean Platelet Volume 9.5 fL (7.4-10.4); Platelet Count 270 10^3/uL (130-400); Red Blood Cell Count 2.31 10^6/uL (4.20-5.40); Red Cell Dist. Width 17.6 % (11.5-14.5)
[2023-10-31 07:32] LABS: ALT (SGPT) < 10 U/L (0-35); AST (SGOT) 14 U/L (14-36); Albumin 2.6 g/dl (3.5-5.0); Alkaline Phosphatase 135 U/L (38-126); Blood Urea Nitrogen 12 mg/dl (7-17); Carbon Dioxide 26 mmol/L (22-30); Chloride 101 mmol/L (98-107); Estimated Creatinine Clearance 66 ml/min; Glucose 61 mg/dl (70-99); Magnesium 1.5 mg/dl (1.6-2.3); Potassium 3.7 mmol/L (3.5-5.1); Sodium 136 mmol/L (135-145); Total Bilirubin 0.4 mg/dl (0.2-1.3); Total Protein 4.5 g/dl (6.3-8.2); eGFR > 60.00
[2023-10-31] MEDS: DIFICID 200 MG PO ×2 (08:11→20:59)
[2023-10-31] MEDS: NON-FORMULARY ITEM 1 CAP PO ×3 (08:14→21:00)
--- NOTE | 2023-10-31 09:28 | W.PN.ID1 ---
Date of Service
Date of Service: October 31, 2023
Today's Communication
Continue with fidaxomicin (day #2)
Assessment / Plan
Recurrent C. difficile diarrhea/colitis
Leukocytosis
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
Stage III breast cancer
Hx thyroid cancer
Parkinson's disease
HTN
Dyslipidemia
Hypothyroidism
Recommendations:
Continue fidaxomicin given recurrent nature of C. difficile, and the fact that the patient is immunocompromised.
Would complete a 14-day course, although given immunosuppression may also require some degree of tapering thereafter.
Trend white count, temperature curve and stool output/consistency.
Monitor abdominal discomfort.
����������������������������������������������������������
Chief Complaint
-: C-diff
Subjective / Review of Systems
Review of Systems: No Fever, No Chills, Abdominal Pain (mild) and Diarrhea
Vital Signs / Physical Exam
Vital Signs
Vital Signs
Temp Pulse Resp BP Pulse Ox
97.5 F 100 16 123/73 100
10/31/23 07:53 10/31/23 07:53 10/31/23 07:53 10/31/23 07:53 10/31/23 07:53
Physical Exam
Constitutional: No Acute Distress, Comfortable, Chronically Ill and Cachetic
Head: Normocephalic
Eyes: No Conjunctival Hemorrhage and Sclera Anicteric
Pulmonary: Non Labored
Gastrointestinal: Soft, Tender (minimal) and Non Distended
Extremities: Negative Cyanosis or Erythema
Skin: Negative Rash or Jaundice
Neurological: Awake, Alert and Oriented
Psychological: Calm
Objective Data
Lab Data
Lab Results
10/31/23 05:09
10/31/23 05:09
Estimated Creat Clear 66 ml/min 10/31/23 05:09
Total Bilirubin 0.4 mg/dl (0.2-1.3) 10/31/23 05:09
AST 14 U/L (14-36) 10/31/23 05:09
ALT < 10 U/L (0-35) 10/31/23 05:09
Alkaline Phosphatase 135 U/L (38-126) H 10/31/23 05:09
Most recent labs reviewed.
Micro Results:
10/30/23 02:10 Salmonella/Shigella Culture - Pending
Feces/Stool Campylobacter Culture - Pending
Shiga Toxin Test - Pending
Stool Leukocytes - Final
10/30/23 02:10 C. difficile GDH Antigen & Toxins - Final
Feces/Stool Toxigenic C.difficile Positive
Imaging:
10/29/2023 CT abdomen/pelvis with contrast: Findings suggest moderate pancolitis. There is moderate fecal material throughout the colon. Mild gallbladder distention with suggestion of mild intrahepatic biliary dilatation. Please see full dictation
for additional detail.
Care Review
Plan reviewed with: Physician (Hospitalist)
--- NOTE | 2023-10-31 14:19 | PN.CDI ---
CDI
- -
CDI:
Physician Documentation Request
Admit Date: 10/29/23 22:10
Dear Doctor Michael,
Please review the following and provide your response in the progress notes.
Clinical Indicators:
Laboratory Tests
10/29/23 10/30/23 10/31/23
15:58 05:18 05:09
Sodium 132 L 133 L 136
Based on the above, please clarify in the progress notes, the appropriate diagnosis, if significant, that supports the above abnormalities and additional evaluation, monitoring and/or treatment rendered:
Hyponatremia
Abnormal lab value, clinically insignificant
Other(please specify)
Use of terms such as suspected, likely, concern for, or probable (associated with a specific diagnosis that is being evaluated, monitored, or treated as if it exists) are acceptable and can be coded in the inpatient setting, when documented at the
time of discharge.
Thank you,
Debbie Nuno RN BSN CCDS
CDI Specialist
please contact via tiger text
Please use your independent medical judgment in providing your response.
--- NOTE | 2023-10-31 14:22 | PN.CDI ---
CDI
- -
CDI:
Physician Documentation Request
Admit Date: 10/29/23 22:10
Dear Doctor Michael,
Please review the following and provide your response in the progress notes.
Clinical Indicators:
Laboratory Tests
10/29/23 10/30/23 10/31/23
15:58 05:18 05:09
Potassium 3.8 3.2 L 3.7
Medications
Potassium Chloride (Potassium Chloride 20 Meq Extended Release Tablet) 40 meq PO NOW STA
Stop: 10/30/23 07:42
Last Admin: 10/30/23 09:37 Dose: 40 meq
Based on the above,please clarify in the progress notes, the appropriate diagnosis, if significant, that supports the above abnormalities and additional evaluation, monitoring and/or treatment rendered:
Hypokalemia
Abnormal lab value, clinically insignificant
Other(please specify)
Use of terms such as suspected, likely, concern for, or probable (associated with a specific diagnosis that is being evaluated, monitored, or treated as if it exists) are acceptable and can be coded in the inpatient setting, when documented at the
time of discharge.
Thank you,
Debbie Nuno RN BSN CCDS
CDI Specialist
please contact via tiger text
Please use your independent medical judgment in providing your response.
--- NOTE | 2023-10-31 14:23 | W.PN.HOSP.TC ---
Today's Communication/Plan
-
advance diet to low residue
stop IVF
if doing well in AM....d/c
Assessment / Plan
Assessment / Plan
pt is a 68 year old female
Recurrent C. diff Diarrhea--Pancolitis by CT--cont PO Dificid--apprec ID input
Leukocytosis--Marked leukocytosis which may be consistent with C. Diff but also with recent GCSF administration--apprec heme
Breast Cancer--on active treatment--Currently on maintenance chemo regimen to complete one year--Just completed taxo/carbo portion--Plan is for eventual XRT - not yet started.
Parkinson's Disease - Stable. Continue Rytary / Rasagiline.
Essential Hypertension- Stable. Not currently on any antihypertensive medications.
Hypothyroidism- s/p thyroidectomy due to medullary thyroid cancer-- Continue T4 supplementation.
DVT Prophylaxis: Lovenox
Code Status: Full
Anticipated Discharge: Within 24 hours
Subjective/Interval History
-
Date of Service: October 31, 2023
pt says diarrhea improved
Objective Data
-
Labs:
Laboratory Results
10/31/23
05:09
WBC 30.0 H
Hgb 7.6 L
Hct 22.6 L
Plt Count 270
Sodium 136
Potassium 3.7
Chloride 101
Carbon Dioxide 26
BUN 12
Creatinine 0.4 L
Glucose 61 L
Calcium 8.0 L
Total Bilirubin 0.4
AST 14
ALT < 10
Alkaline Phosphatase 135 H
Vital Signs:
max temp for 24 hours
10/30/23
19:36
Temp 99.6 F
Vital Signs
Temp Pulse Resp BP Pulse Ox
97.3 F 105 16 109/71 100
10/31/23 11:55 10/31/23 11:55 10/31/23 11:55 10/31/23 11:55 10/31/23 11:55
I&O
10/30/23 10/31/23 11/01/23
06:59 06:59 06:59
Intake Total 3130 / 3130
Balance 3130 / 3130
Review of Systems
-
All other systems: Reviewed and negative
Abdomen/GI: Reports Diarrhea
Physical Exam
-
General: Appears Chronically Ill
HEENT: Normocephalic and Atraumatic
Respiratory: Clear to Auscultation; Negative Wheezes or Rhonchi
Cardiac: Regular Rhythm and S1/S2; Negative Murmur
GI: Soft, Nontender, Nondistended and Normal Bowel Sounds
Musculoskeletal: No Clubbing, No Cyanosis and No Edema
Neuro: Awake and Alert
[2023-10-31] MEDS: NSS IV (15:00)
[2023-10-31] MEDS: LOVENOX 30 MG SC (17:12)
[2023-10-31] MEDS: RASAGILINE MESYLATE 1 MG PO (20:59)
[2023-11-01] VITALS (7 sets, daily range): BP systolic 118–143; BP diastolic 77–87; PULSE 99–105; BMI 19.6
[2023-11-01 05:05] LABS: Hematocrit 22.3 % (37.0-47.0); Hemoglobin 7.6 g/dL (12.0-16.0); Mean Corp Hgb Conc. 34.1 g/dL (33.0-37.0); Mean Corpuscular Hgb 32.8 pg (27.0-31.0); Mean Corpuscular Volume 96.1 fL (81.0-99.0); Mean Platelet Volume 8.8 fL (7.4-10.4); Platelet Count 310 10^3/uL (130-400); Red Blood Cell Count 2.32 10^6/uL (4.20-5.40); Red Cell Dist. Width 17.4 % (11.5-14.5); White Blood Cell Count 30.9 10^3/uL (4.8-10.8)
[2023-11-01 05:27] LABS: Blood Urea Nitrogen 12 mg/dl (7-17); Calcium 8.3 mg/dl (8.4-10.2); Carbon Dioxide 28 mmol/L (22-30); Chloride 101 mmol/L (98-107); Estimated Creatinine Clearance 66 ml/min; Glucose 99 mg/dl (70-99); Magnesium 1.3 mg/dl (1.6-2.3); Potassium 3.5 mmol/L (3.5-5.1); Sodium 135 mmol/L (135-145); eGFR > 60.00
[2023-11-01] MEDS: SYNTHROID 75 MCG PO (06:03)
[2023-11-01] MEDS: DIFICID 200 MG PO ×2 (07:42→20:43)
[2023-11-01] MEDS: NON-FORMULARY ITEM 1 CAP PO ×3 (07:43→21:50)
[2023-11-01] MEDS: MAGNESIUM SULFATE 100 IV (09:29)
--- NOTE | 2023-11-01 09:57 | W.PN.HOSP.TC ---
Addendum entered and electronically signed by Debbie Rodriguez MD 11/01/23 10:03:
hyponatremia resolved--insignificant
hypokalemia/hypomagnesemia--replete
Original Note:
Today's Communication/Plan
-
cont dificid
low res diet
consider d/c tomorrow if diarrhea improves
Assessment / Plan
Assessment / Plan
pt is a 68 year old female
Recurrent C. diff Diarrhea--Pancolitis by CT--cont PO Dificid--apprec ID input--still with diarrhea every hour--no d/c today
Leukocytosis--Marked leukocytosis which may be consistent with C. Diff but also with recent GCSF administration--apprec heme
Breast Cancer--on active treatment--Currently on maintenance chemo regimen to complete one year--Just completed taxo/carbo portion--Plan is for eventual XRT - not yet started.
Parkinson's Disease - Stable. Continue Rytary / Rasagiline.
Essential Hypertension- Stable. Not currently on any antihypertensive medications.
Hypothyroidism- s/p thyroidectomy due to medullary thyroid cancer-- Continue T4 supplementation.
DVT Prophylaxis: Lovenox
Code Status: Full
Anticipated Discharge: 24 - 48 hours
Subjective/Interval History
-
Date of Service: November 01, 2023
no d/c today
RN and pt state diarrhea every hour....
Objective Data
-
Labs:
Laboratory Results
11/01/23
04:35
WBC 30.9 H
Hgb 7.6 L
Hct 22.3 L
Plt Count 310
Sodium 135
Potassium 3.5
Chloride 101
Carbon Dioxide 28
BUN 12
Creatinine 0.3 L
Glucose 99
Calcium 8.3 L
Vital Signs:
max temp for 24 hours
11/01/23
03:22
Temp 98.0 F
Vital Signs
Temp Pulse Resp BP Pulse Ox
97.7 F 89 18 133/82 97
11/01/23 07:20 11/01/23 07:20 11/01/23 07:20 11/01/23 07:20 11/01/23 07:20
I&O
10/31/23 11/01/23 11/02/23
06:59 06:59 06:59
Intake Total 3130 / 3130 1580 / 1580
Balance 3130 / 3130 1580 / 1580
Review of Systems
-
Constitutional: Reports No Symptoms
Abdomen/GI: Reports Diarrhea
Physical Exam
-
General: Well Developed, No Apparent Distress, Appears Chronically Ill and Cachectic
HEENT: Normocephalic and Atraumatic
Respiratory: Clear to Auscultation; Negative Wheezes or Rhonchi
Cardiac: Regular Rhythm and S1/S2; Negative Murmur
GI: Soft, Nontender, Nondistended and Normal Bowel Sounds
Musculoskeletal: No Clubbing, No Cyanosis and No Edema
[2023-11-01 12:42] LABS: Glucose - Point of Care 114 mg/dl (70-99)
--- NOTE | 2023-11-01 12:46 | PTCARENOTE ---
Patient reports feeling tired, face is flushed, VS and BGM within normal limits. No S/S of respiratory distress. Patient currently on IV MAG 78.6/100ml transfused. IV stopped per MD Dr Rodriguez orders.
--- NOTE | 2023-11-01 15:11 | W.PN.ID1 ---
Date of Service
Date of Service: November 01, 2023
Today's Communication
Continue fidaxomicin.
Assessment / Plan
Recurrent C. difficile diarrhea/colitis
Leukocytosis
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
Stage III breast cancer
Hx thyroid cancer
Parkinson's disease
HTN
Dyslipidemia
Hypothyroidism
Recommendations:
Continue fidaxomicin given recurrent nature of C. difficile, and the fact that the patient is immunocompromised.
Would complete a 14-day course, although given immunosuppression may also require some degree of tapering thereafter.
Trend white count, temperature curve and stool output/consistency. Per pt BM frequency has decreased.
����������������������������������������������������������
Chief Complaint
-: C-diff
Subjective / Review of Systems
Stool frequency slower.
No abd pain.
Vital Signs / Physical Exam
Vital Signs
Vital Signs
Temp Pulse Resp BP Pulse Ox
97.9 F 98 18 139/86 98
11/01/23 12:48 11/01/23 12:48 11/01/23 12:48 11/01/23 12:48 11/01/23 12:48
Physical Exam
Constitutional: No Acute Distress and Comfortable
Gastrointestinal: Soft, Non Tender and Non Distended
Objective Data
Lab Data
Lab Results
11/01/23 04:35
11/01/23 04:35
Estimated Creat Clear 66 ml/min 11/01/23 04:35
Total Bilirubin 0.4 mg/dl (0.2-1.3) 10/31/23 05:09
AST 14 U/L (14-36) 10/31/23 05:09
ALT < 10 U/L (0-35) 10/31/23 05:09
Alkaline Phosphatase 135 U/L (38-126) H 10/31/23 05:09
Most recent labs reviewed.
Micro Results:
10/30/23 02:10 Salmonella/Shigella Culture - Final
Feces/Stool No Salmonella, Shigella, Aeromonas or Plesiomonas species
isolated.
Campylobacter Culture - Final
No Campylobacter species isolated.
Shiga Toxin Test - Pending
Stool Leukocytes - Final
10/30/23 02:10 C. difficile GDH Antigen & Toxins - Final
Feces/Stool Toxigenic C.difficile Positive
Imaging:
10/29/2023 CT abdomen/pelvis with contrast: Findings suggest moderate pancolitis. There is moderate fecal material throughout the colon. Mild gallbladder distention with suggestion of mild intrahepatic biliary dilatation. Please see full dictation
for additional detail.
Care Review
Plan reviewed with: Physician (Dr. Rodriguez)
[2023-11-01] MEDS: LOVENOX 30 MG SC (16:31)
[2023-11-01] MEDS: RASAGILINE MESYLATE 1 MG PO (21:51)
[2023-11-02 03:19] VITALS: BP 135/92
[2023-11-02 05:54] VITALS: BMI 19.6
[2023-11-02] MEDS: SYNTHROID 75 MCG PO (05:58)
[2023-11-02 07:20] VITALS: BP 123/81
[2023-11-02 07:47] LABS: Hematocrit 23.7 % (37.0-47.0); Hemoglobin 8.3 g/dL (12.0-16.0); Mean Corpuscular Hgb 33.5 pg (27.0-31.0); Mean Corpuscular Volume 95.6 fL (81.0-99.0); Mean Platelet Volume 8.6 fL (7.4-10.4); Platelet Count 346 10^3/uL (130-400); Red Blood Cell Count 2.48 10^6/uL (4.20-5.40); Red Cell Dist. Width 17.5 % (11.5-14.5)
[2023-11-02 08:07] LABS: ALT (SGPT) < 10 U/L (0-35); AST (SGOT) 23 U/L (14-36); Albumin 2.9 g/dl (3.5-5.0); Alkaline Phosphatase 143 U/L (38-126); Blood Urea Nitrogen 7 mg/dl (7-17); Calcium 8.3 mg/dl (8.4-10.2); Carbon Dioxide 30 mmol/L (22-30); Chloride 96 mmol/L (98-107); Estimated Creatinine Clearance 67 ml/min; Glucose 87 mg/dl (70-99); Magnesium 1.5 mg/dl (1.6-2.3); Potassium 3.7 mmol/L (3.5-5.1); Sodium 133 mmol/L (135-145); Total Bilirubin 0.3 mg/dl (0.2-1.3); Total Protein 5.1 g/dl (6.3-8.2); eGFR > 60.00
[2023-11-02] MEDS: NON-FORMULARY ITEM 1 CAP PO (08:51)
[2023-11-02] MEDS: DIFICID 200 MG PO (08:51)
--- NOTE | 2023-11-02 09:22 | W.PN.HOSP.TC ---
Today's Communication/Plan
-
d/c
Assessment / Plan
Assessment / Plan
pt is a 68 year old female
Recurrent C. diff Diarrhea--Pancolitis by CT--cont PO Dificid x 10 days with taper thereafter--apprec ID input--improved
Leukocytosis--Marked leukocytosis which may be consistent with C. Diff but also with recent GCSF administration--apprec heme
Breast Cancer--on active treatment--Currently on maintenance chemo regimen to complete one year--Just completed taxo/carbo portion--Plan is for eventual XRT - not yet started.
Parkinson's Disease - Stable. Continue Rytary / Rasagiline.
Essential Hypertension- Stable. Not currently on any antihypertensive medications.
Hypothyroidism- s/p thyroidectomy due to medullary thyroid cancer-- Continue T4 supplementation.
DVT Prophylaxis: Lovenox
Code Status: Full
Anticipated Discharge: Today
Subjective/Interval History
-
Date of Service: November 02, 2023
diarrhea subsided
Objective Data
-
Labs:
Laboratory Results
11/02/23
07:34
WBC 29.0 H
Hgb 8.3 L
Hct 23.7 L
Plt Count 346
Sodium 133 L
Potassium 3.7
Chloride 96 L
Carbon Dioxide 30
BUN 7
Creatinine 0.3 L
Glucose 87
Calcium 8.3 L
Total Bilirubin 0.3
AST 23
ALT < 10
Alkaline Phosphatase 143 H
Vital Signs:
max temp for 24 hours
11/01/23
23:19
Temp 97.7 F
Vital Signs
Temp Pulse Resp BP Pulse Ox
97.5 F 102 18 123/81 98
11/02/23 07:20 11/02/23 07:20 11/02/23 07:20 11/02/23 07:20 11/02/23 07:20
I&O
11/01/23 11/02/23 11/03/23
06:59 06:59 06:59
Intake Total 1580 / 1580 2160 / 2160
Output Total 240 / 240
Balance 1580 / 1580 1919 / 192
Review of Systems
-
All other systems: Reviewed and negative
Physical Exam
-
General: Appears Chronically Ill
HEENT: Normocephalic and Atraumatic
Respiratory: Clear to Auscultation; Negative Wheezes, Rales, Rhonchi or Crackles
Cardiac: Regular Rhythm and S1/S2; Negative Murmur
GI: Soft, Nontender, Nondistended and Normal Bowel Sounds
Musculoskeletal: No Clubbing, No Cyanosis and No Edema
Skin: Warm
Neuro: Awake
--- NOTE | 2023-11-02 09:33 | W.PN.ID1 ---
Date of Service
Date of Service: November 02, 2023
Today's Communication
Recommend the following extended regimen:
Fidaxomicin 200mg po bid through 11/03/23, then on 11/05/23 start 200mg po every other day x 20 days.
Will set up outpatient Bezlotoxumab IV x 1 before end of therapy.
Assessment / Plan
First recurrent C. difficile diarrhea/colitis
Leukocytosis due to Neulasta, trending down
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
Stage III breast cancer
Hx thyroid cancer
Parkinson's disease
HTN
Dyslipidemia
Hypothyroidism
Recommendations:
Continue fidaxomicin given recurrent nature of C. difficile, and the fact that the patient is immunocompromised.
Recommend the following extended regimen:
Fidaxomicin 200mg po bid through 11/03/23, then on 11/05/23 start 200mg po every other day x 20 days.
Will set up outpatient Bezlotoxumab IV x 1 before end of therapy.
����������������������������������������������������������
Chief Complaint
-: C-diff
Subjective / Review of Systems
Diarrhea resolved.
Vital Signs / Physical Exam
Vital Signs
Vital Signs
Temp Pulse Resp BP Pulse Ox
97.5 F 102 18 123/81 98
11/02/23 07:20 11/02/23 07:20 11/02/23 07:20 11/02/23 07:20 11/02/23 08:15
Physical Exam
Constitutional: No Acute Distress
Gastrointestinal: Soft, Non Tender and Non Distended
Extremities: Negative Edema
Neurological: AO x 3
Objective Data
Lab Data
Lab Results
11/02/23 07:34
11/02/23 07:34
Estimated Creat Clear 67 ml/min 11/02/23 07:34
Total Bilirubin 0.3 mg/dl (0.2-1.3) 11/02/23 07:34
AST 23 U/L (14-36) 11/02/23 07:34
ALT < 10 U/L (0-35) 11/02/23 07:34
Alkaline Phosphatase 143 U/L (38-126) H 11/02/23 07:34
Most recent labs reviewed.
Micro Results:
10/30/23 02:10 Salmonella/Shigella Culture - Final
Feces/Stool No Salmonella, Shigella, Aeromonas or Plesiomonas species
isolated.
Campylobacter Culture - Final
No Campylobacter species isolated.
Shiga Toxin Test - Pending
Stool Leukocytes - Final
10/30/23 02:10 C. difficile GDH Antigen & Toxins - Final
Feces/Stool Toxigenic C.difficile Positive
Imaging:
10/29/2023 CT abdomen/pelvis with contrast: Findings suggest moderate pancolitis. There is moderate fecal material throughout the colon. Mild gallbladder distention with suggestion of mild intrahepatic biliary dilatation. Please see full dictation
for additional detail.
Care Review
Plan reviewed with: Physician
Total Time Spent with Patient (in minutes): Dr. Rodriguez
--- NOTE | 2023-11-02 11:04 | CM ---
Patient has been medically cleared for discharge to home with no additional skilled services. Family will transport home.
--- NOTE | 2023-11-02 15:21 | W.DCSUMMARY ---
Discharge Summary
Discharge Data
Date of Admission: 10/29/23
Date of Discharge: 11/02/23
-
Pending Results: No
Hospital Course
Primary care physician : Abigail Hernández
Principal Discharge diagnosis : Recurrent C. difficile diarrhea with pancolitis
Chronic Discharge diagnosis : Breast cancer with leukocytosis status post G-CSF administration, Parkinson's disease, essential hypertension, hypothyroidism
Hospital Course : Patient was a 68-year-old female with a history of breast cancer on chemotherapy who presented complaining of diarrhea, weakness, and fatigue. In early September, the patient was diagnosed with C. difficile and was treated with a course
of oral vancomycin. She stated that her diarrhea improved but never went fully away. She continued her chemo regimen and again developed diarrhea this past weekend prior to admission. She reported crampy right lower quadrant pain and 9 episodes
of loose or watery stools. She denied fever, chills, nausea, vomiting. She did take Imodium. Patient was found to have recurrent C. difficile and was admitted.
Problem #1: Recurrent C. difficile diarrhea with pancolitis. Patient's CAT scan showed pancolitis. She completed her course of oral vancomycin and had a recurrence of C. difficile. She has been changed to Dificid with improvement in her diarrhea.
ID has been consulted and agreed with the change. Patient's diarrhea is improved and at discharge plan was to continue with Dificid for 10 days followed by taper. I received a phone call from the patient that the Dificid with the approximate
$10,000 which she cannot afford. I ordered oral vancomycin again for her for 10 days with a 10-day taper afterwards. She should follow-up with her primary care physician and possibly with ID, given that she has to go back on the oral Vanco as
opposed to the better drug of Dificid.
Problem #2: All other medical issues. These include Breast cancer with leukocytosis status post G-CSF administration, Parkinson's disease, essential hypertension, hypothyroidism. These medical issues were stable during her hospitalization.
Medications were continued as able.
Patient is stable for discharge home at this time. If there are any questions regarding this dictation or her hospital stay, please not hesitate to call. Our office number is [phone].
Important imaging findings :
CT SCAN ABDOMEN/PELVIS IMPRESSION: Findings suggesting moderate pancolitis
Moderate fecal material throughout the colon.
Mild gallbladder distention with suggestion of mild intrahepatic biliary dilatation. This could further be evaluated by abdominal ultrasound.
Hepatic cyst.
Bilateral too small to characterize hypodense renal lesions likely benign cysts.
Several 1 mm nonobstructing left renal stones.
Discharge Plan
-
Patient Disposition: Home (Routine Discharge)
Discharge Diagnosis/Procedures: Recurrent C. difficile diarrhea, leukocytosis, breast cancer, Parkinson's disease, essential hypertension, hypothyroidism
Condition: Fair
Diet: As tolerated and Regular
Activity: As tolerated
Driving Restrictions: As prior to admission
Bathing Restrictions: None
Referrals:
Abigail Hernández PA-C [Family Provider] - in less than 1 week
Additional Discharge Medication Instructions: take dificid twice daily x 10 days, then daily x 5 days, then every other day x 5 days
Prescriptions:
New
vancomycin 125 mg capsule
125 mg PO QID Qty: 60 0RF
Rx Instructions:
take 4x/day for 10 days, then 2x/day for 5 days, then daily x 5 days
Continued
simvastatin 40 mg Tablet
40 mg PO HS
levothyroxine 75 mcg Tablet
75 mcg PO DAILY
rasagiline 1 mg Tablet
1 mg PO HS
Rytary 36.25-145 mg Capsule, Extended Release
1 cap PO TID
ondansetron 8 mg Tablet,Disintegrating
8 mg PO Q8HPRN PRN (Reason: nausea/vomiting)
loratadine [Claritin] 10 mg Tablet
10 mg PO DAILY PRN (Reason: Allergies)
Discontinued
loperamide 2 mg Capsule
2 mg PO BIDPRN PRN (Reason: diarrhea)
Hold Instructions: Resume on 10/16/23.
Discharge Orders:
Discharge Patient (As Directed); Ordered 11/02/23
Ordered By: Debbie Rodriguez
Discharge Date and Time
Discharge Date/Time: 11/02/23 13:29
Print Language: FAROESE
== END 2023-11-02 13:29 | disposition home or self-care (01) | DRG 372 ==
LOC: 2 NORTH 22:10
PROVIDERS: ADMITTING PHYSICIAN Hospitalist; ATTENDING PHYSICIAN Internal Medicine; CONSULT PHYSICIAN Internal Medicine Hematology & Oncology; CONSULT PHYSICIAN Internal Medicine Infectious Disease; EMERGENCY PHYSICIAN Emergency Medicine; FAMILY PHYSICIAN Physician Assistant Medical
DX: A04.71 Enterocolitis due to Clostridium difficile, recurrent (principal); D84.9 Immunodeficiency, unspecified; E87.1 Hypo-osmolality and hyponatremia; R64 Cachexia; G20.A1 Parkinson's disease without dyskinesia, without mention of fluctuations; K76.89 Other specified diseases of liver; C50.919 Malignant neoplasm of unspecified site of unspecified female breast; E89.0 Postprocedural hypothyroidism; I10 Essential (primary) hypertension; E86.0 Dehydration; E83.42 Hypomagnesemia; E78.5 Hyperlipidemia, unspecified; N20.0 Calculus of kidney; K82.8 Other specified diseases of gallbladder; E87.6 Hypokalemia; T36.8X5A Adverse effect of other systemic antibiotics, initial encounter; Z15.01 Genetic susceptibility to malignant neoplasm of breast; Z79.890 Hormone replacement therapy; Z85.850 Personal history of malignant neoplasm of thyroid
CPT/HCPCS: 71046; 74177; 80048; 80053; 82962; 83735; 85025; 85027; 87045; 87046; 87324; 87427; 87449; 89055; 96360; 96361; 97116; 97166; 97530; 99285; Q9967

== ENCOUNTER → 2023-11-07 15:36 | Outpatient (REF) | payer MEDICARE, OTHER, SELFPAY ==
[2023-11-07 09:30] LABS: % Basophils 0.6 % (0-2); % Eosinophils 0.1 % (0-6); % Immature Granulocytes 9.4 % (0-0.5); % Lymphocytes 9.8 % (20.5-51.1); % Monocytes 4.6 % (1.7-9.3); % Neutrophils 75.5 % (42.2-75.2); Absolute Basophils 0.1 10^3/uL (0-0.2); Absolute Immature Granulocytes 1.5 10^3/uL (0-0.05); Absolute Lymphocytes 1.6 10^3/uL (1.2-3.4); Absolute Monocytes 0.7 10^3/uL (0.1-0.6); Absolute Neutrophils 11.9 10^3/uL (1.4-6.5); Hematocrit 25.8 % (37.0-47.0); Hemoglobin 8.5 g/dL (12.0-16.0); Mean Corp Hgb Conc. 32.9 g/dL (33.0-37.0); Mean Corpuscular Hgb 32.2 pg (27.0-31.0); Mean Corpuscular Volume 97.7 fL (81.0-99.0); Mean Platelet Volume 8.2 fL (7.4-10.4); Nucleated Red Blood Cells % 0.3 %; Red Blood Cell Count 2.64 10^6/uL (4.20-5.40); White Blood Cell Count 15.8 10^3/uL (4.8-10.8)
[2023-11-07 09:38] LABS: Platelet Count 429 10^3/uL (130-400)
[2023-11-07 09:51] LABS: ALT (SGPT) 13 U/L (0-35); AST (SGOT) 36 U/L (14-36); Albumin 3.5 g/dl (3.5-5.0); Alkaline Phosphatase 130 U/L (38-126); Blood Urea Nitrogen 20 mg/dl (7-17); Calcium 9.1 mg/dl (8.4-10.2); Carbon Dioxide 28 mmol/L (22-30); Chloride 97 mmol/L (98-107); Glucose 126 mg/dl (70-99); Magnesium 1.4 mg/dl (1.6-2.3); Potassium 3.8 mmol/L (3.5-5.1); Sodium 134 mmol/L (135-145); Total Bilirubin 0.3 mg/dl (0.2-1.3); Total Protein 5.9 g/dl (6.3-8.2); eGFR > 60.00
== END ==
LOC: OIDL 15:36
PROVIDERS: ATTENDING PHYSICIAN Internal Medicine Hematology & Oncology
DX: C50.411 Malignant neoplasm of upper-outer quadrant of right female breast (principal)
CPT/HCPCS: 80053; 83735; 85025

== ENCOUNTER 2023-11-10 15:31 | Inpatient (IN) | payer MEDICARE, OTHER, SELFPAY ==
[2023-11-10] VITALS (8 sets, daily range): BP systolic 100–123; BP diastolic 68–80; BMI 18.8; BMI 17.8
[2023-11-10 12:26] LABS: % Basophils 0.4 % (0-2); % Eosinophils 0.1 % (0-6); % Immature Granulocytes 6.4 % (0-0.5); % Lymphocytes 8.1 % (20.5-51.1); % Monocytes 3.3 % (1.7-9.3); % Neutrophils 81.7 % (42.2-75.2); Absolute Basophils 0.1 10^3/uL (0-0.2); Absolute Immature Granulocytes 1.4 10^3/uL (0-0.05); Absolute Lymphocytes 1.8 10^3/uL (1.2-3.4); Absolute Monocytes 0.7 10^3/uL (0.1-0.6); Absolute Neutrophils 18.4 10^3/uL (1.4-6.5); Hematocrit 29.1 % (37.0-47.0); Hemoglobin 9.9 g/dL (12.0-16.0); Mean Corpuscular Hgb 32.6 pg (27.0-31.0); Mean Corpuscular Volume 95.7 fL (81.0-99.0); Mean Platelet Volume 8.3 fL (7.4-10.4); Nucleated Red Blood Cells % 0.1 %; Platelet Count 339 10^3/uL (130-400); Red Blood Cell Count 3.04 10^6/uL (4.20-5.40); Red Cell Dist. Width 17.3 % (11.5-14.5); White Blood Cell Count 22.5 10^3/uL (4.8-10.8)
[2023-11-10] MEDS: ZOFRAN 4 MG IV (12:32)
[2023-11-10 12:37] LABS: Lactic Acid 1.5 mmol/L (0.7-2.0)
[2023-11-10 12:38] LABS: ALT (SGPT) 12 U/L (0-35); AST (SGOT) 37 U/L (14-36); Alkaline Phosphatase 116 U/L (38-126); Blood Urea Nitrogen 18 mg/dl (7-17); Calcium 9.3 mg/dl (8.4-10.2); Carbon Dioxide 28 mmol/L (22-30); Chloride 93 mmol/L (98-107); Estimated Creatinine Clearance 64 ml/min; Glucose 117 mg/dl (70-99); Potassium 3.3 mmol/L (3.5-5.1); Sodium 131 mmol/L (135-145); Total Bilirubin 0.5 mg/dl (0.2-1.3); Total Protein 6.6 g/dl (6.3-8.2); eGFR > 60.00
--- NOTE | 2023-11-10 12:42 | ED.GENMED ---
History of Present Illness
General
Chief Complaint: Weakness
Source: family
Exam Limitations: altered mental status
Time Seen by Provider: 11/10/23 11:30
Nursing documentation reviewed up to this point in time: agreed with
Travel History
Have you had any contact with someone who has COVID-19?: No
Do you have any symptoms of coronavirus? Fever > 100 degrees, chills, cough, shortness of breath, sore throat, loss of taste or smell, muscle aches, or headache?: No
History of Present Illness
History of Present Illness:
Patient is a 5-year-old female currently undergoing treatment for breast cancer , also currently being treated for C. difficile on vancomycin history of Parkinson's hypertension hyperlipidemia brought by family for confusion. Family reports patient
was very confused rambling today. Family does report the patient was aware of her confusion. Daughter reports that patient is currently being treated for C. difficile. Patient was admitted October 28 to November 01 for recurrent significant pancolitis.
Patient was aware that she was confused she does not feel as confused now. She denies any fever or chills.
Past History
Past History
ED Past Medical History: Cancer, HTN, Hypercholesterolemia, Hypothyroidism and Other (Breast cancer, thyroid cancer, Parkinson's)
ED Past Surgical History: Gynecological and Other
Social History
Tobacco: Non-smoker
Alcohol: None
Drug: None
Personal:
Review of Systems
Review of Systems
Allergies reviewed?: Yes
Other source history: family
All Other Systems: ROS reviewed and negative except as documented in HPI and ROS
Constitutional: Reports no symptoms; Denies fever
Respiratory: Reports no symptoms
Cardiac: Reports no symptoms
ABD/GI: Reports no symptoms
: Reports no symptoms
Musculoskeletal: Reports no symptoms
Neurological: Reports other (confused )
Hematologic/Lymphatic: Reports no symptoms
Psychiatric: Reports no symptoms
Phy Exam
General Physical Exam
General Presentation: no apparent distress
General age: appears older than age
General Skin: warm and dry
General Habitus: normal
General Mental: alert
General Hydration: appears well hydrated
Cardiovascular Exam
Cardiovascular Exam: regular rate/rhythm, no murmur and normal peripheral pulses
Pulmonary Exam
Pulmonary Exam: lungs clear and no respiratory distress
Neurological Exam
Neurological Exam: alert and oriented x3
Musculoskeletal Exam
Musculoskeletal Exam: full ROM
Skin Exam
Skin Exam: normal color and warm/dry
Psychiatric Exam
Psychiatric Exam: normal mood/affect
Course
Orders/Labs/Results
Orders:
Orders
11/10/23 11:26
EKG [Electrocardiogram (*1)] Urgent
Reason for Study: Fatigue / Weakness
11/10/23 11:27
EKG- Treatment ONCE
11/10/23 12:08
IV Insert/Care/Rem.- Treatment PRN
Straight cath- Treatment ONCE
11/10/23 12:09
CT Head W/o Iv Contrast Stat
Comment:
Reason For Exam: change in ms
CR Chest - 2 Views Urgent
Comment:
Reason For Exam: change in ms
11/10/23 12:15
Complete Blood Count/With Diff Urgent
Comprehensive Metabolic Panel Urgent
Lactic Acid Q4H
Comment: CANCEL 2nd LACTIC ACID IF 1st LACTIC ACID IS LESS THAN 2
Magnesium Urgent
Comment: ADD ON
11/10/23 12:29
Heparin Pf [Heparin Lock Flush] 500 unit .ROUTE .STK-MED ONE
Ondansetron Injectable [Zofran] 4 mg .ROUTE .STK-MED ONE
11/10/23 12:31
Ondansetron Injectable [Zofran] 4 mg IV NOW STA
11/10/23 12:36
Blood Culture Q30M
ИРИНА Source: Blood/Venous
Specimen Description:
Blood Culture Q30M
ИРИНА Source: Blood/Venous
Specimen Description:
11/10/23 12:48
Urinalysis Reflex To Culture Urgent
Date Specimen was Collected: 11/10/23
Time Specimen was Collected: 12:42
Urine Microscopic Reflex Cult Urgent
Urine Culture Urgent
ИРИНА Source: U
Specimen Description:
Date Specimen was Collected: 11/10/23
Time Specimen was Collected: 12:42
11/10/23 13:16
Add On- LAB Urgent
Tests Added?: magnesium
11/10/23 13:51
CefTRIAXone [Rocephin] 1,000 mg IV NOW STA
Abnormal Lab Results
11/10/23 11/10/23
12:15 12:48
WBC 22.5 H 10^3/uL
(4.8-10.8)
RBC 3.04 L 10^6/uL
(4.20-5.40)
Hgb 9.9 L g/dL
(12.0-16.0)
Hct 29.1 L %
(37.0-47.0)
MCH 32.6 H pg
(27.0-31.0)
RDW 17.3 H %
(11.5-14.5)
Sodium 131 L mmol/L
(135-145)
Potassium 3.3 L mmol/L
(3.5-5.1)
Chloride 93 L mmol/L
(98-107)
BUN 18 H mg/dl
(7-17)
Creatinine 0.5 L mg/dL
(0.6-1.0)
Glucose 117 H mg/dl
(70-99)
AST 37 H U/L
(14-36)
Ur Occult Blood Reflex 2+ A
(Negative)
Leukocyte Esterase Rfl 2+ A
(Negative)
Urine RBC 7-10 A /HPF
(0-2)
Urine WBC (Reflex) 70-80 A /HPF
(0-5)
Urine Bacteria (Reflex) Many A
(Negative)
11/10/23 12:15
11/10/23 12:15
Vital Signs
Initial and Last Documented VS:
Initial Vital Signs
Temp Pulse Resp BP Pulse Ox
98.0 F 97 25 118/74 100
11/10/23 11:29 11/10/23 11:29 11/10/23 11:29 11/10/23 11:29 11/10/23 11:29
Last Documented Vital Signs
Temp Pulse Resp BP Pulse Ox
98.0 F 100 23 119/73 97
11/10/23 11:29 11/10/23 13:45 11/10/23 13:45 11/10/23 12:00 11/10/23 13:45
MDM/Problems Addressed
Differential Diagnosis Includes:
not limited to : Infection dehydration
MDM/Problems Addressed:
Patient is a 68-year-old female currently undergoing treatment for breast cancer followed by [facility] here also with present diagnosis of C. difficile was recently admitted presently on vancomycin brought by family for acute mental
status changes. Patient was very confused this morning rambling. Patient reports her she in fact was aware that she was confused. She arrives awake alert she is more oriented now less confused. She has no physical complaints she was found to
have UTI with 70 white blood cells white count is elevated again at 22,000 heart was elevated previously at 15.8 on November 06 also likely related to C. difficile. With his confusion and recent UTI in the immunocompromise of breast cancer Edvin
mission to the hospital IV antibiotics
*Radiology
Radiology exam reviewed: radiology read reviewed
*Pulse Oximetry
Patient hypoxic: no
*EKG
Interpreted by ED Provider?: Yes
Interpretation: normal
Comparison EKG: no changes
Heart Rate: 101
Rate: tachycardiac
Rhythm: sinus
*Critical Care Note
Total Time (30-74mins, 75-104mins- exclusive of procedures): Not Applicable
Data Reviewed
Review of Other/Old Records Reveals: Labs
Source: patient and family
ED Attending Note
-
Portions of this chart may have been created with voice recognition software.� Occasional wrong word or��sound alike� substitutions may have occurred due to the inherent limitations of voice recognition software.
Discharge Plan
Departure
Patient Disposition: Admit
Date of Disposition: 11/10/23
Time of Disposition: 14:07
Admit to: Med/Surg
Admit to doctor: hospitalist
Presentation/result/management discussed w/ accepting MD/DO: Hospitalist
Patient with high blood pressure during this ER visit?: No
Condition: Fair
Covid-19: Not Applicable
Discharge Problem:
Acute UTI, Acute alteration in mental status
Prescriptions:
No Action
simvastatin 40 mg Tablet
40 mg PO HS
levothyroxine 75 mcg Tablet
75 mcg PO DAILY
rasagiline 1 mg Tablet
1 mg PO HS
Rytary 36.25-145 mg Capsule, Extended Release
1 cap PO TID
ondansetron 8 mg Tablet,Disintegrating
8 mg PO Q8HPRN PRN (Reason: nausea/vomiting)
loratadine [Claritin] 10 mg Tablet
10 mg PO DAILY PRN (Reason: Allergies)
vancomycin 125 mg capsule
125 mg PO QID Qty: 60 0RF
Rx Instructions:
take 4x/day for 10 days, then 2x/day for 5 days, then daily x 5 days
Referrals:
Abigail Hernández PA-C [Family Provider] -
Interventions
Interventions:
*Risk Screen - Suicide Last Done: 11/10/23 11:34
*General Assessment Last Done: 11/10/23 11:34
*Neglect/Abuse Screening Last Done: 11/10/23 11:34
ED- Fall Risk Assessment Last Done: 11/10/23 11:37
*ED COVID-19 Vaccine History Last Done: 11/10/23 11:33
ED- Cardiac Assessment Last Done: 11/10/23 11:36
ED- Neurological Assessment Last Done: 11/10/23 11:36
ED- Pulmonary Assessment Last Done: 11/10/23 11:36
Discharge Date and Time
Print Language: SWISS
[2023-11-10 13:08] LABS: Urine Albumin Trace (Neg - Trace); Urine Bilirubin Negative (Negative); Urine Character Clear (Clear); Urine Color Yellow; Urine Glucose Negative (Negative); Urine Ketone Negative (Negative); Urine Leukocyte 2+ (Negative); Urine Nitrite Negative (Negative); Urine Occult Blood 2+ (Negative); Urine Urobilinogen Negative (Neg - 1+)
[2023-11-10 13:33] LABS: Urine Bacteria Many (Negative); Urine White Cell 70-80 /HPF (0-5)
[2023-11-10] MEDS: ROCEPHIN 1000 MG IV (14:00)
[2023-11-10 14:03] LABS: Magnesium 1.1 mg/dl (1.6-2.3)
--- NOTE | 2023-11-10 14:51 | HPS.HSE ---
Addendum entered and electronically signed by Jasen Abbasi MD 11/12/23 11:35:
Correction. Per discussion with oncology patient's breast cancer is stage Ia ( not stage 3)
Original Note:
Family Physician
<KAUR Roland - Last Filed: 11/10/23 15:40>
-
Family Physician: Abigail Hernández PA-C
Chief Complaint
<KAUR Roland - Last Filed: 11/10/23 15:40>
-
Confusion, dysuria
History of Present Illness
68-year-old female from home brought by family for confusion with rambling. The patient reports she is aware of her confusion she states she was humming and saying random words quotation I want to see my mother''s. She also reports when she stood
up today she felt dizzy fell onto her hands and knees but did not sustain any injury. She also reports feeling slightly anxious along with having some occasional dysuria that started in the middle of the night.. She denies headache, fever, chills,
chest pain, palpitations, shortness of breath, cough, abdominal pain, nausea, vomiting. She reports she received IV fluids twice a week due to decreased oral intake. Her last infusion was 11/07/2023 she is due to start Herceptin immunotherapy on
11/14/2023
The patient had a recent admission 10/28 - 11/02/2023 recurrent C. difficile diarrhea with pancolitis was placed on oral vancomycin for 10 days she was unable to afford Dificid due to co-pay of $10,000. She states she has not had diarrhea for the past
week but is still taking her oral vancomycin. The patient's past medical history of breast cancer stage III on current immunotherapy with [facility], just finished Taxol/carbo plan for XRT, Parkinson's disease, benign HTN, hypothyroidism 2/2
medullary thyroid CA. Hx of leukocytosis status post G�CSF administration.
Medical History
<KAUR Roland - Last Filed: 11/10/23 15:40>
Past Medical History
Past Medical History: Reports Other
Additional Past Medical History:
Recurrent C. difficile pancolitis�treated 10/29/23 with oral vancomycin
Stage III Breast CA s/p Lumpectomy
Parkinson's Disease
Essential Hypertension
Hyperlipidemia
Medullary Thyroid CA s/p Thyroidectomy
Past Surgical History: Reports Other
Additional Past Surgical History:
Right Lumpectomy with Lymph Node Dissection
Thyroidectomy
Social History
Tobacco: Non-smoker
Alcohol: None
Drug: None
Personal:
Living: With Family ()
Family History
Family History: Other (Mother history of breast CA age 83)
Allergies / Home Medications
Allergies reflects when Allergies were last updated in [facility].
Home Medications with original date entered in [facility]
Allergy/Medication List:
Allergies
Allergy/AdvReac Type Severity Reaction Status Date / Time
Sulfa (Sulfonamide Allergy flu like Verified 11/10/23 11:28
Antibiotics) symptoms
Home Medications
carbidopa ER 36.25 mg-levodopa 145 mg capsule,extended release (Rytary) 1 cap PO TID PARKINSON 05/28/23
levothyroxine 75 mcg tablet 75 mcg PO DAILY Thyroid 05/28/23
rasagiline 1 mg tablet 1 mg PO HS PARKINSON 05/28/23
simvastatin 40 mg tablet 40 mg PO HS High Cholesterol 05/28/23
loratadine 10 mg tablet (Claritin) 10 mg PO DAILYPRN PRN chemo treatment 09/30/23
losartan 25 mg tablet 25 mg PO HS 11/10/23
polyethylene glycol 3350 17 gram oral powder packet (Miralax) 17 g PO DAILYPRN PRN constipation 11/10/23
trastuzumab 150 mg intravenous solution (Herceptin) 600 mg IV Q3W 11/10/23
vancomycin 125 mg capsule 125 mg PO UD c. diff 11/10/23
Review of Systems
<KAUR Roland - Last Filed: 11/10/23 15:40>
-
History Source: Patient
A 12 point ROS was completed and negative except as noted: Yes
Constitutional: Reports Other (Decreased oral intake, aware of confusion); Denies Fever or Chills
EENT: Denies Sore Throat or Runny Nose
Respiratory: Denies Cough or Trouble Breathing
Cardiac: Denies Chest Pain, Diaphoresis, Palpitations or Syncope
Abdomen/GI: Denies Abdominal Pain, Nausea, Vomiting, Diarrhea, Constipated, Bloody Stools or Black Stools
: Reports Dysuria; Denies Frequency, Flank Pain, Incontinence, Difficulty Voiding or Urgency
Musculoskeletal: Denies Joint Pain or Edema
Skin: Denies Itching or Rash
Neurological: Reports Dizzy; Denies Headache or Weakness
Endocrine: Reports No Symptoms
Hematologic/Lymphatic: Reports No Symptoms
Psych: Reports Calm
Physical Exam
<KAUR Roland - Last Filed: 11/10/23 15:40>
Vital Signs
Vital Signs
Temp Pulse Resp BP Pulse Ox
98.0 F 100 23 119/73 97
11/10/23 11:29 11/10/23 13:45 11/10/23 13:45 11/10/23 12:00 11/10/23 13:45
Physical Exam
General: Comfortable, Conversant and Other (Patient reports had confusion earlier but she was aware of she currently feels anxious and dizzy); No Fever or Chills
HEENT: NormoCephalic, Anicteric, PERRLA, Bethany Conjunctivae, No Ptosis and Other (Dry oral mucosa)
Respiratory: Clear; No Wheezes, Rales or Rhonchi
Cardiac: S1/S2 and Regular Rhythm; No Murmur, Rub, Gallop or Peripheral Edema
Breast: Deferred by me
GI: Soft, Non Tender, Non Distended, Normal Bowel Sounds and No Hepatosplenomegaly
Rectal: Deferred by Provider
Genito-urinary: Deferred by me
Musculoskeletal: No Clubbing, No Cyanosis and No Edema
Skin: Warm, Dry and IV/Catheter Site (Port present left upper chest wall); No Rash
Neuro: AO x 3, Cranial Nerves Intact and No Sensory Deficits; No Slurred Speech, Facial Droop or Tremors
Psych: Calm
Laboratory Results
<KAUR Roland - Last Filed: 11/10/23 15:40>
-
11/10/23 12:15
11/10/23 12:15
Laboratory Results
Lactic Acid 1.5 mmol/L (0.7-2.0) 11/10/23 12:15
Lactic Acid Cancelled 11/10/23 12:15
Total Bilirubin 0.5 mg/dl (0.2-1.3) 11/10/23 12:15
AST 37 U/L (14-36) H 11/10/23 12:15
ALT 12 U/L (0-35) 11/10/23 12:15
Alkaline Phosphatase 116 U/L (38-126) 11/10/23 12:15
Data Reviewed
<KAUR Roland - Last Filed: 11/10/23 15:40>
-
Lab Data: Labs Reviewed by me
Impression/Plan
<KAUR Roland - Last Filed: 11/10/23 15:40>
-
Impression/plan:
Admit to TELE
#Encephalopathy secondary to symptomatic UTI
WBC 22.5 was 15.8 on 11/07/2023
-UA [employer]ER follow urine culture, blood cultures x 2
UA WBC 70-80, many bacteria, +2 leukocytes
-IV Rocephin
-Consult I/D
-PT/OT/case management consult
CT head: No acute intracranial abnormality. Minimal periventricular small vessel ischemic disease
EKG: Sinus tach 101 bpm, QTc 484 MS no significant change from September 30, 2023
#Hypokalemia euvolemic
K3.3
-Will give KCl 40 mEq follow BMP
#Hyponatremia euvolemic
NA 131, IV NSS
# Acute on chronic hypomagnesemia
Was due tmr for 2 gm rider
Magnesium level 1.1
-Mag rider 4 g will give now
#Hx volume depletion decreased oral intake
Typically gets IV NSS twice a week Tuesdays, Fridays last infusion was 11/07/2023
#Hx C. difficile pancolitis 11/01/2023
-cont oral vancomycin 125 mg p.o. 4 times daily x 10 days, then 2 times a day for 5 days then daily x 5 days
-Patient reports diarrhea resolved x 1 week is still on oral vancomycin
-Consult I/D
# Acute on chronic leukocytosis secondary to G�CSF administration
#Breast cancer stage III on current maintenance current immunotherapy/port left upper chest wall
WBC baseline 26-40
WBC 22.5 has increased from 15.8 on 11/07/2023
-Continue Claritin 10 mg with chemo treatments
-Patient just completed toxo/carbo with plan for eventual XRT not started yet
-Due for Herceptin on 11/14/2023
-Consult [facility]
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
Hgb 9.9 appears stable, will follow CBC
#Benign HTN
BP 119/73
-Continue losartan 25 mg at bedtime
#HLD
-Continue simvastatin 40 mg at bedtime
#Parkinson's disease
Continue Rytary 1 cap p.o. 3 times daily, Rasaglinie 1 mg at bedtime
#Hypothyroidism s/p thyroidectomy due to medullary thyroid cancer
-Continue levothyroxine 75 mcg p.o. daily
#Chronic cachexia�multifactorial�BMI 18.8 kg
-Consult dietary, encourage oral intake
DVT prophylaxis
Subcu Lovenox
Full code
<Jasen Abbasi MD - Last Filed: 11/10/23 17:10>
-
Seen and examined the patient. Discussed with Kindra Galindo. Agree with assessment and plan formulated together
On examination patient is awake and alert denies any discomfort.
Patient stated that after she woke up this morning she felt confused. She drank a lot of water to see if she would get better. Then she went to the bathroom where she passed out and called ambulance. Patient denies any confusion no. No
diarrhea she did have some burning when she passed urine at home
Awake alert oriented
Cardiovascular system S1-S2 appreciated
Chest clear to auscultation
Abdomen soft and nontender
No pedal edema
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
# Encephalopathy likely secondary to UTI
Pyuria noted along with symptoms
Continue ceftriaxone and await results of culture
CT of the head without any acute changes
# Hypokalemia and hypomagnesemia-replace IV magnesium and p.o. potassium
# Hyponatremia-check osmolality studies, TSH and cortisol level
# Volume depletion with decreased poor p.o. intake and usually gets normal saline twice a week Tuesdays and Fridays last infusion was 11/07/2023
# History of C. difficile colitis diagnosed 11/01/2023
Currently on vancomycin-continue twice a day and continue taper as planned
Infectious disease consultation
# Leukocytosis-likely secondary to: Stimulating factor administration
Also infection related likely
Continue antibiotics and follow
# History of stage III breast cancer currently on immunotherapy after lumpectomy and chemotherapy
[facility] Luisana Flores
# Anemia likely secondary to chemotherapy and malignancy
# Hypertension-hold losartan given blood pressure on the low side
# Hypothyroidism-iatrogenic
History of thyroidectomy for medullary thyroid cancer
Continue Synthroid
# Hyperlipidemia-continue statin
# Parkinson's disease, continue Rytary and rasagiline
# Chronic cachexia and underweight BMI 18
Encourage p.o. intake
# DVT prophylaxis-subcutaneous Lovenox
# Full code
Impression/plan:
Admit to TELE
#Encephalopathy secondary to symptomatic UTI
WBC 22.5 was 15.8 on 11/07/2023
-UA [employer]ER follow urine culture, blood cultures x 2
UA WBC 70-80, many bacteria, +2 leukocytes
-IV Rocephin
-Consult I/D
-PT/OT/case management consult
CT head: No acute intracranial abnormality. Minimal periventricular small vessel ischemic disease
EKG: Sinus tach 101 bpm, QTc 484 MS no significant change from September 30, 2023
#Hypokalemia euvolemic
K3.3
-Will give KCl 40 mEq follow BMP
#Hyponatremia euvolemic
NA 131, IV NSS
# Acute on chronic hypomagnesemia
Was due tmr for 2 gm rider
Magnesium level 1.1
-Mag rider 4 g will give now
#Hx volume depletion decreased oral intake
Typically gets IV NSS twice a week Tuesdays, Fridays last infusion was 11/07/2023
#Hx C. difficile pancolitis 11/01/2023
-cont oral vancomycin 125 mg p.o. 4 times daily x 10 days, then 2 times a day for 5 days then daily x 5 days
-Patient reports diarrhea resolved x 1 week is still on oral vancomycin
-Consult I/D
# Acute on chronic leukocytosis secondary to G�CSF administration
#Breast cancer stage III on current maintenance current immunotherapy/port left upper chest wall
WBC baseline 26-40
WBC 22.5 has increased from 15.8 on 11/07/2023
-Continue Claritin 10 mg with chemo treatments
-Patient just completed toxo/carbo with plan for eventual XRT not started yet
-Due for Herceptin on 11/14/2023
-Consult [facility]
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
Hgb 9.9 appears stable, will follow CBC
#Benign HTN
BP 119/73
-Continue losartan 25 mg at bedtime
#HLD
-Continue simvastatin 40 mg at bedtime
#Parkinson's disease
Continue Rytary 1 cap p.o. 3 times daily, Rasaglinie 1 mg at bedtime
#Hypothyroidism s/p thyroidectomy due to medullary thyroid cancer
-Continue levothyroxine 75 mcg p.o. daily
#Chronic cachexia�multifactorial�BMI 18.8 kg
-Consult dietary, encourage oral intake
DVT prophylaxis
Subcu Lovenox
Full code
[2023-11-10] MEDS: NSS 1000 IV (15:37)
[2023-11-10] MEDS: MAGNESIUM SULFATE 100 IV (15:37)
[2023-11-10] MEDS: KCL 40 MEQ PO (15:46)
--- NOTE | 2023-11-10 16:05 | CON.ID ---
Consultation
-
Date/Time Consultation Requested: 11/10/23 15:37
Date/Time Consultation Performed: 11/10/23 16:06
Requesting Provider: wander OWEN
Performing Provider: Dr chino
Reason for Consultation: symptomatic uti current cdiff
Chief Complaint / Past History
Chief Complaint
Confusion, dysuria
History of Present Illness
Ms Valentin is a 68 year old female with history notable for recurrent C difficile currently on oral vancomycin taper, stage III breast cancer recently completed carboplatin and Taxotere with trastuzumab and received growth factor support. She
was brought here for confusion today along with dysuria; she was aware that her thinking was 'goofy,' and it has subsequently cleared. Denies diarrhea, fever, chills, cva tenderness, chest pain, palpitations, shortness of breath, cough, abdominal
pain, nausea, vomiting. Gets IV fluids twice a week due to decreased oral intake. Her last infusion was 11/07/2023. Due to start Herceptin immunotherapy on 11/14/2023. No chemo or neulasta since last admission.
Note last visit she was planned for dificid taper however cost was prohibitive now on oral vancomycin taper. Reports diarrhea has resolved. Unclear if bezlotoxumab received
Since arrival here she has been afebrile, bp stable, wbc currently 22, hgb 9.9i, plt 339, L shift is noted, cr 0.5, UA 70-80 wbc/hpf, CT head: no acute abnormality, CXR no infiltrates, urine culture pending, blood cultures x2 in progress, currently
on ceftiraxone and oral vancomycin.
Past History
Additional Past Medical History:
Recurrent C. difficile pancolitis�treated 10/29/23 with oral vancomycin
Stage III Breast CA s/p Lumpectomy
Parkinson's Disease
Essential Hypertension
Hyperlipidemia
Medullary Thyroid CA s/p Thyroidectomy
Additional Past Surgical History:
Right Lumpectomy with Lymph Node Dissection
Thyroidectomy
Port
Allergy History:
Sulfa (Sulfonamide Antibiotics) Allergy (Verified 11/10/23 11:28)
flu like symptoms
Medications Reviewed: Yes
Social History
Tobacco: Non-Smoker
Alcohol: None
Drug: None
Family History
Family History: Not Pertinent
Review of Systems
Review of Systems
General: Negative Fever or Chills
All systems: All other systems were reviewed and were negative
Vital Signs
Temp Pulse Resp BP Pulse Ox
98.0 F 100 23 119/73 97
11/10/23 11:29 11/10/23 13:45 11/10/23 13:45 11/10/23 12:00 11/10/23 13:45
Physical Exam
Physical Exam
Constitutional: No Acute Distress and Cachetic
Cardiovascular: Regular Rate and S1/S2; Negative Murmur or Rub
Pulmonary: Clear and Symmetric; Negative Wheezes, Rales or Rhonchi
Gastrointestinal: Soft, Non Tender, Non Distended and Normal Bowel Sounds
Genito-Urinary: Negative Suprapubic Tenderness or CVA Tenderness
Skin: Warm and Dry; Negative Rash or Jaundice
Lab / Diagnostic Study Results
11/10/23 12:15
11/10/23 12:15
Abs Immat Gran (auto) 1.4 10^3/uL (0-0.05) H 11/10/23 12:15
Absolute Neuts (auto) 18.4 10^3/uL (1.4-6.5) H 11/10/23 12:15
Absolute Lymphs (auto) 1.8 10^3/uL (1.2-3.4) 11/10/23 12:15
Absolute Monos (auto) 0.7 10^3/uL (0.1-0.6) H 11/10/23 12:15
Absolute Basos (auto) 0.1 10^3/uL (0-0.2) 11/10/23 12:15
Immature Gran % 6.4 % (0-0.5) H 11/10/23 12:15
Neutrophils % 81.7 % (42.2-75.2) H 11/10/23 12:15
Lymphocytes % 8.1 % (20.5-51.1) L 11/10/23 12:15
Monocytes % 3.3 % (1.7-9.3) 11/10/23 12:15
Eosinophils % 0.1 % (0-6) 11/10/23 12:15
Basophils % 0.4 % (0-2) 11/10/23 12:15
Lactic Acid 1.5 mmol/L (0.7-2.0) 11/10/23 12:15
Lactic Acid Cancelled 11/10/23 12:15
Microbiology Results
Micro:
11/10/23 12:36 Blood Culture - Pending
Blood/Venous
11/10/23 12:48 Urine Culture - Pending
Urine
11/10/23 12:36 Blood Culture - Pending
Blood/Venous
Assessment / Plan
Suspected UTI
Recurrent C difficile on Taper
Stage III breast cancer
Hx thyroid cancer
Parkinson's disease
- follow urine and blood cultures; note pyuira
- no history of MDROs on file here, recent UTIs with borderline MICs for cefazolin
- given leukocytosis will continue ceftriaxone for now; follow up oncology comments re: recent medications
- deescalate as able
- continue oral vanc - dose at 125 mg PO BID for now
- bezlotoxumab currently scheduled in [facility] for friday - could be rescheduled if needed
- follow clinically
[2023-11-10 16:44] LABS: Osmolality Serum 271 mOsm/kg (275-300)
--- NOTE | 2023-11-10 16:45 | PTCARENOTE ---
Received patient from ED on stretcher. Placed on Telemetry Monitoring, SR to ST. Assisted to bed, patient slightly unsteady on her feet and grabbing onto wall for support.
Patient is now AAOX4, pleasant and cooperative. Remembers being confused at home. Bed Alarm in place for safety due to fall at home. L CW Port with NS at 80 infusing appropriately.
[2023-11-10] MEDS: LOVENOX 40 MG SC (18:40)
[2023-11-10 19:23] LABS: Osmolality Urine 247 mOsm/kg (300-900)
[2023-11-10 19:30] LABS: Urine Sodium 27 mmol/L (30-90)
[2023-11-10] MEDS: FIRVANQ 125 MG PO (22:02)
[2023-11-10] MEDS: NON-FORMULARY ITEM 1 CAP PO (22:03)
[2023-11-10] MEDS: LIPITOR 20 MG PO (22:03)
[2023-11-10] MEDS: RASAGILINE MESYLATE 1 MG PO (22:03)
[2023-11-11] MEDS: NSS 1000 IV (03:19)
[2023-11-11 03:53] VITALS: BP 121/71
[2023-11-11] MEDS: SYNTHROID 75 MCG PO (05:12)
[2023-11-11 05:38] LABS: % Basophils 0.5 % (0-2); % Eosinophils 0.2 % (0-6); % Lymphocytes 10.2 % (20.5-51.1); % Monocytes 5.4 % (1.7-9.3); % Neutrophils 81.7 % (42.2-75.2); Absolute Basophils 0.1 10^3/uL (0-0.2); Absolute Immature Granulocytes 0.2 10^3/uL (0-0.05); Absolute Lymphocytes 1.2 10^3/uL (1.2-3.4); Absolute Monocytes 0.7 10^3/uL (0.1-0.6); Absolute Neutrophils 9.8 10^3/uL (1.4-6.5); Hemoglobin 8.9 g/dL (12.0-16.0); Mean Corpuscular Hgb 32.1 pg (27.0-31.0); Mean Corpuscular Volume 97.5 fL (81.0-99.0); Mean Platelet Volume 8.4 fL (7.4-10.4); Nucleated Red Blood Cells % 0 %; Platelet Count 328 10^3/uL (130-400); Red Blood Cell Count 2.77 10^6/uL (4.20-5.40); Red Cell Dist. Width 17.9 % (11.5-14.5)
[2023-11-11 06:00] VITALS: BMI 17.6
[2023-11-11 06:28] LABS: ALT (SGPT) 12 U/L (0-35); AST (SGOT) 37 U/L (14-36); Albumin 3.5 g/dl (3.5-5.0); Alkaline Phosphatase 100 U/L (38-126); Blood Urea Nitrogen 14 mg/dl (7-17); Calcium 8.5 mg/dl (8.4-10.2); Carbon Dioxide 29 mmol/L (22-30); Chloride 100 mmol/L (98-107); Estimated Creatinine Clearance 60 ml/min; Glucose 91 mg/dl (70-99); Magnesium 2.4 mg/dl (1.6-2.3); Potassium 4.1 mmol/L (3.5-5.1); Sodium 137 mmol/L (135-145); Total Bilirubin 0.3 mg/dl (0.2-1.3); eGFR > 60.00
[2023-11-11 07:14] LABS: Hepatitis C Antibody Negative (Negative)
[2023-11-11 07:32] VITALS: BP 139/83
[2023-11-11] MEDS: NON-FORMULARY ITEM 1 CAP PO ×3 (08:56→21:12)
[2023-11-11] MEDS: FIRVANQ 125 MG PO ×3 (08:57→21:11)
--- NOTE | 2023-11-11 10:21 | CON.ONC ---
Impression
Impression
Confusion secondary to dehydration
stage Ia right breast carcinoma HR/HER2/agustin positive status post 6 cycles TCHP
Resolving C diff colitis
Plan
Plan
Maintain current IV fluid hydration with maximizing electrolyte replacement; consult [facility] regarding additional therapies for C. difficile colitis; will follow with you
Patient History
History of Present Illness
68-year-old white female with history of stage Ia HR/HER2/agustni positive disease right breast carcinoma status postlumpectomy with axillary node dissection status post 6 cycles of TCHP completing 10/17/2023 admitted to the hospital with self-aware
confusion accompanying 5 to 8 pound weight loss unintentional. She had been tolerating adjuvant therapy well until the development of C. difficile colitis approximately 4 weeks prior for which she is continuing oral vancomycin therapy at home. She
notes loss of appetite with resolution of watery stools for over 10 days though stooling remains soft without blood.
Past-Medical/Surgical History
Hypothyroidism; parkinsonism; diabetes mellitus; hyperlipidemia;
Patient Medication
�Medication �Instructions �Recorded �Confirmed �Last Taken �Type
carbidopa ER 36.25 mg-levodopa 145 1 cap PO TID PARKINSON 05/28/23 11/10/23 11/10/23 History
mg capsule,extended release
(Rytary)
levothyroxine 75 mcg tablet 75 mcg PO DAILY Thyroid 05/28/23 11/10/23 10/29/23 History
rasagiline 1 mg tablet 1 mg PO HS PARKINSON 05/28/23 11/10/23 11/09/23 History
simvastatin 40 mg tablet 40 mg PO HS High Cholesterol 05/28/23 11/10/23 11/09/23 History
loratadine 10 mg tablet (Claritin) 10 mg PO DAILYPRN PRN chemo 09/30/23 11/10/23 09/30/23 History
treatment
losartan 25 mg tablet 25 mg PO HS Blood Pressure 11/10/23 11/10/23 11/09/23 History
polyethylene glycol 3350 17 gram 17 g PO DAILYPRN PRN constipation 11/10/23 11/10/23 11/08/23 History
oral powder packet (Miralax)
trastuzumab 150 mg intravenous 600 mg IV Q3W Cancer 11/10/23 11/10/23 Unknown History
solution (Herceptin)
vancomycin 125 mg capsule 125 mg PO UD c. diff 11/10/23 11/10/23 11/09/23 History
Active Medications
Generic Name Dose Route Start Last Admin
Trade Name Freq PRN Reason Stop Dose Admin
Acetaminophen 650 mg 11/10/23 16:26
Acetaminophen 325 Mg Tablet PO 12/08/23 16:25
Q4HPRN PRN
mild pain/MARTEL/temp> 100.4F
Atorvastatin Calcium 20 mg 11/10/23 22:00 11/10/23 22:03
Atorvastatin (Lipitor) 20 Mg Tablet PO 12/08/23 21:59 20 mg
HS DAWSON Administration
Ceftriaxone Sodium 1,000 mg 11/11/23 14:00
Ceftriaxone 1000 Mg / 10 Ml Vial IV
Q24H DAWSON
Enoxaparin Sodium 40 mg 11/10/23 18:00 11/10/23 18:40
Enoxaparin Sodium 40 Mg/0.4 Ml Syringe SC 12/08/23 17:59 40 mg
QPM DAWSON Administration
Sodium Chloride 1,000 mls @ 80 mls/hr 11/10/23 15:15 11/11/23 03:19
Nss IV 1,000 mls
[id number] DAWSON Administration
Levothyroxine Sodium 75 mcg 11/11/23 06:00 11/11/23 05:12
Levothyroxine 75 Mcg Tablet PO 12/09/23 05:59 75 mcg
DAILY @ 0600 DAWSON Administration
Carbidopa-Levodopa [ 0 cap 11/10/23 22:00 11/11/23 08:56
Rytary] 48.75 Mg/195 PO 12/08/23 21:59 1 cap
Mg Mg Capsule, Er TID DAWSON Administration
Po Tid
Rasagiline 1 mg 11/10/23 22:00 11/10/23 22:03
Rasagiline (Azilect) 0.5 Mg Tablet (Non-Form) PO 12/08/23 21:59 1 mg
HS DAWSON Administration
Sodium Chloride 0 flush 11/10/23 17:00
Sodium Chloride 0.9% (Flush) Syringe IV 12/08/23 16:59
PER PROTOCOL DAWSON
Sterile Water 10 ml 11/11/23 14:00
Sterile Water For Injection 10 Ml Vial IV 12/09/23 13:59
Q24H DAWSON
Vancomycin HCl 125 mg 11/10/23 20:00 11/11/23 08:57
Vancomycin Oral Solution 50 Mg/Ml In Oral Syringe PO 125 mg
BID DAWSON Administration
Review of Systems
-
History Source: Patient
All Other Systems: Reviewed and Negative (Other than as per HPI)
Physical Exam
-
General: Well Developed and No Apparent Distress
HEENT: Moist Mucous Membranes
Cardiology: Normal Sinus Rhythm
Pulmonary: Clear
GI: Soft
Musculoskeletal: No Clubbing and No Cyanosis
Neurology: Non Focal
Psych: Calm
Labs
Lab Results
WBC 12.0 10^3/uL (4.8-10.8) H 11/11/23 05:03
RBC 2.77 10^6/uL (4.20-5.40) L 11/11/23 05:03
Hgb 8.9 g/dL (12.0-16.0) L 11/11/23 05:03
Hct 27.0 % (37.0-47.0) L 11/11/23 05:03
MCV 97.5 fL (81.0-99.0) 11/11/23 05:03
MCH 32.1 pg (27.0-31.0) H 11/11/23 05:03
MCHC 33.0 g/dL (33.0-37.0) 11/11/23 05:03
RDW 17.9 % (11.5-14.5) H 11/11/23 05:03
Plt Count 328 10^3/uL (130-400) 11/11/23 05:03
MPV 8.4 fL (7.4-10.4) 11/11/23 05:03
Abs Immat Gran (auto) 0.2 10^3/uL (0-0.05) H 11/11/23 05:03
Absolute Neuts (auto) 9.8 10^3/uL (1.4-6.5) H 11/11/23 05:03
Absolute Lymphs (auto) 1.2 10^3/uL (1.2-3.4) 11/11/23 05:03
Absolute Monos (auto) 0.7 10^3/uL (0.1-0.6) H 11/11/23 05:03
Absolute Eos (auto) 0.0 10^3/uL (0-0.7) 11/11/23 05:03
Absolute Basos (auto) 0.1 10^3/uL (0-0.2) 11/11/23 05:03
Immature Gran % 2.0 % (0-0.5) H 11/11/23 05:03
Neutrophils % 81.7 % (42.2-75.2) H 11/11/23 05:03
Lymphocytes % 10.2 % (20.5-51.1) L 11/11/23 05:03
Monocytes % 5.4 % (1.7-9.3) 11/11/23 05:03
Eosinophils % 0.2 % (0-6) 11/11/23 05:03
Basophils % 0.5 % (0-2) 11/11/23 05:03
Creatinine 0.6 mg/dL (0.6-1.0) 11/11/23 05:03
Vital Signs
Vital Signs
Temp Pulse Resp BP Pulse Ox
98.0 F 88 16 139/83 97
11/11/23 07:32 11/11/23 07:32 11/11/23 07:32 11/11/23 07:32 11/11/23 08:00
--- NOTE | 2023-11-11 10:57 | W.PN.ID1 ---
Date of Service
Date of Service: November 11, 2023
Today's Communication
See below.
Assessment / Plan
# E. coli UTI
- Continue ceftriaxone (d2) pending susceptibility data.
# Recurrent C difficile currently on po vanco taper (her insurance [employer] not cover fidaxomicin).
- Continue Vancomycin 125 mg po tid through 11/16, then bid through 11/23, then qd through 11/30, then qod through 12/07, then q72h through 12/14, then stop.
- Bezlotoxumab is not offered inpatient. Dose rescheduled from 11/10 to 11/18 at [facility].
#Stage III breast cancer - on tx
Hx thyroid cancer
Parkinson's disease
Chief Complaint
-: UTI and C-diff
Subjective / Review of Systems
Feeling better today.
No diarrhea.
Urinary sxs resolved.
Vital Signs / Physical Exam
Vital Signs
Vital Signs
Temp Pulse Resp BP Pulse Ox
98.0 F 88 16 139/83 97
11/11/23 07:32 11/11/23 07:32 11/11/23 07:32 11/11/23 07:32 11/11/23 08:00
Physical Exam
Constitutional: No Acute Distress, Comfortable and Cachetic
Pulmonary: Clear
Gastrointestinal: Soft, Non Tender and Non Distended
Genito-Urinary: Negative CVA Tenderness
Neurological: AO x 3
Objective Data
Lab Data
Lab Results
11/11/23 05:03
11/11/23 05:03
Estimated Creat Clear 60 ml/min 11/11/23 05:03
Lactic Acid 1.5 mmol/L (0.7-2.0) 11/10/23 12:15
Lactic Acid Cancelled 11/10/23 12:15
Total Bilirubin 0.3 mg/dl (0.2-1.3) 11/11/23 05:03
AST 37 U/L (14-36) H 11/11/23 05:03
ALT 12 U/L (0-35) 11/11/23 05:03
Alkaline Phosphatase 100 U/L (38-126) 11/11/23 05:03
Most recent labs reviewed.
Micro Results:
11/10/23 12:48 Urine Culture - Preliminary
Urine Escherichia coli
11/10/23 12:36 Blood Culture - Pending
Blood/Venous
11/10/23 12:36 Blood Culture - Pending
Blood/Venous
[2023-11-11 11:14] VITALS: BP 125/75
--- NOTE | 2023-11-11 12:35 | W.PN.HOSP.TC ---
Addendum entered and electronically signed by Jasen Abbasi MD 11/12/23 11:35:
Correction. Per discussion with oncology patient's breast cancer is stage Ia ( not stage 3)
Original Note:
Today's Communication/Plan
-
AB
Vanco
Stop IVF
Labs in am
Encourage Po and activity
Assessment / Plan
Assessment / Plan
Awake alert oriented
Cardiovascular system S1-S2 appreciated
Chest clear to auscultation
Abdomen soft and nontender
No pedal edema
GREEN MATERIAL VALUE ADDED ASSESSOR exam is nonfocal
# Encephalopathy likely secondary to UTI and dehydration.
Resolved.
Pyuria noted along with symptoms
Continue ceftriaxone and await results of culture
CT of the head without any acute changes
# Hypokalemia and hypomagnesemia-replace IV magnesium and p.o. potassium
# Hyponatremia-check osmolality studies, TSH and cortisol level
# Volume depletion with decreased poor p.o. intake and usually gets normal saline twice a week Tuesdays and Fridays last infusion was 11/07/2023
# History of C. difficile colitis diagnosed 11/01/2023
Currently on vancomycin-continue twice a day and continue taper as planned
Bezlotoxumab was planned as OP on 11/10. Now will be as OP after discharge.
No diarrhea now
Infectious disease consultation appreciated
# Leukocytosis-likely secondary to: [place] Stimulating factor administration
Also infection related likely
Continue antibiotics and follow- better
# History of stage III breast cancer currently on immunotherapy after lumpectomy
HER2/agustin positive status post Taxotere,Carboplatin,Herceptin,Perjeta
Pt says she is supposed to continue Herceptin only now.
[facility] Luis[facility]
# Anemia likely secondary to chemotherapy and malignancy
# Hypertension-hold losartan given blood pressure on the low side
# Hypothyroidism-iatrogenic
History of thyroidectomy for medullary thyroid cancer
Continue Synthroid
# Hyperlipidemia-continue statin
# Parkinson's disease, continue Rytary and rasagiline
# Chronic cachexia and underweight BMI 18
Encourage p.o. intake
# DVT prophylaxis-subcutaneous Lovenox
# Full code
Called and left a message for
Anticipated Discharge: Within 24 hours
Subjective/Interval History
-
Date of Service: November 11, 2023
Objective Data
-
Labs:
Laboratory Results
11/11/23
05:03
WBC 12.0 H
Hgb 8.9 L
Hct 27.0 L
Plt Count 328
Sodium 137
Potassium 4.1
Chloride 100
Carbon Dioxide 29
BUN 14
Creatinine 0.6
Glucose 91
Calcium 8.5
Total Bilirubin 0.3
AST 37 H
ALT 12
Alkaline Phosphatase 100
Vital Signs:
Vital Signs
Temp Pulse Resp BP Pulse Ox
97.6 F 95 20 125/75 96
11/11/23 11:14 11/11/23 11:14 11/11/23 11:14 11/11/23 11:14 11/11/23 11:14
I&O
11/10/23 11/11/23 11/12/23
06:59 06:59 06:59
Intake Total 960 / 960
Balance 960 / 960
--- NOTE | 2023-11-11 12:57 | CM ---
Patient seen bedside.
IA completed.
Patient lives with spouse in a split level home with no steps to enter.
Patient independent prior to admission, has a RW.
Patient drives.
Patient currently undergoing Chemo.
Patient has not had VN or been to a skilled facility.
PCP and Pharmacy verified.
Spouse will transport home.
Plan:home no needs anticipated.
[2023-11-11 14:47] VITALS: BP 129/79; PULSE 97; O2SAT 98
[2023-11-11] MEDS: ROCEPHIN 1000 MG IV (14:51)
[2023-11-11] MEDS: STERILE WATER FOR INJECTION 10 ML IV (14:51)
--- NOTE | 2023-11-11 15:37 | PN.CDI ---
Addendum entered and electronically signed by Jasen Abbasi MD 11/12/23 07:40:
Documentation is complete at this time.
Original Note:
CDI
- -
CDI:
Physician Documentation Request
Admit Date: 11/10/23 15:31
Dear Doctor Ayleen,
Please review the following and provide your response in the progress notes.
Clinical Indicators:
Pt admitted with UTI/ Recurrent CDIFF/ Immunocompromised on chemo for beast cancer
Documented in the record, ' Encephalopathy likely secondary to UTI and dehydration. '
Please specify the known or suspected type of the documented encephalopathy.
Metabolic
Toxic metabolic
Other
Use of terms such as suspected, likely, concern for, or probable (associated with a specific diagnosis that is being evaluated, monitored, or treated as if it exists) are acceptable and can be coded in the inpatient setting, when documented at the
time of discharge.
Thank you,
Lynette Douglass RN
CDI Specialist
[place] [facility]
Please use your independent medical judgment in providing your response.
--- NOTE | 2023-11-11 15:44 | PN.CDI ---
Addendum entered and electronically signed by Jasen Abbasi MD 11/12/23 07:40:
Documentation is complete at this time.
Original Note:
CDI
- -
CDI:
Physician Documentation Request
Admit Date: 11/10/23 15:31
Dear Doctor Ayleen,
Please review the following and provide your response in the progress notes.
Clinical Indicators:
Pt admitted with UTI/ Recurrent CDIFF/ Immunocompromised on chemo for beast cancer
Progress not 11/10, 'Leukocytosis-likely secondary to: [place] Stimulating factor administration Also infection related likely..'
Pt currently on IV Rocephin and oral Vancomycin
On Admission WBC 22.5, HR as high as 105, RR 43
Please clarify which of the following most accurately describes the status of the patient's infection:
Sepsis-POA
- Systemic manifestations of infection, with 2 or more SIRS criteria which include:
- Fever >100.4 degrees F or hypothermia < 96.8 degrees F
- Leukocytosis - WBC > 12,000 or leukopenia - WBC < 4,000 or > 10% bands
- Tachycardia > 90 beats per minute
- Tachypnea - RR > 20 breaths per minute or PaCO2 , 32mmHg
Source: Merck Manual 2013
UTI/recurrent CDIFF only , Without Systemic Illness
Other
Use of terms such as suspected, likely, concern for, or probable (associated with a specific diagnosis that is being evaluated, monitored, or treated as if it exists) are acceptable and can be coded in the inpatient setting, when documented at the
time of discharge.
Thank you,
Lynette Douglass RN
CDI Specialist
[place] [facility]
Please use your independent medical judgment in providing your response.
[2023-11-11 16:40] VITALS: BMI 17.6
[2023-11-11] MEDS: LOVENOX SC (18:04)
[2023-11-11 19:19] VITALS: BP 142/86
[2023-11-11] MEDS: LIPITOR 20 MG PO (21:11)
[2023-11-11] MEDS: RASAGILINE MESYLATE 1 MG PO (21:11)
[2023-11-11 23:19] VITALS: BP 142/87
[2023-11-12 03:39] VITALS: BP 144/87
--- NOTE | 2023-11-12 03:41 | DOWNTIME ---
There was a [employer] Client Heading Machine Operator Downtime on 11/12/2023 from 0100 to 11/12/2023 at 0337. Downtime documentation of patient's care, including medication administrations, has been reconciled in the electronic record per guidelines. Refer to the
patient's paper chart under the miscellaneous tab to see printed paper medication records and downtime forms.
[2023-11-12 04:41] LABS: % Basophils 0.4 % (0-2); % Eosinophils 0.4 % (0-6); % Immature Granulocytes 2.2 % (0-0.5); % Lymphocytes 8.3 % (20.5-51.1); % Monocytes 3.6 % (1.7-9.3); % Neutrophils 85.1 % (42.2-75.2); Absolute Basophils 0.1 10^3/uL (0-0.2); Absolute Eosinophils 0.1 10^3/uL (0-0.7); Absolute Immature Granulocytes 0.3 10^3/uL (0-0.05); Absolute Lymphocytes 1.3 10^3/uL (1.2-3.4); Absolute Monocytes 0.6 10^3/uL (0.1-0.6); Absolute Neutrophils 12.9 10^3/uL (1.4-6.5); Hematocrit 24.8 % (37.0-47.0); Hemoglobin 8.3 g/dL (12.0-16.0); Mean Corp Hgb Conc. 33.5 g/dL (33.0-37.0); Mean Corpuscular Hgb 32.3 pg (27.0-31.0); Mean Corpuscular Volume 96.5 fL (81.0-99.0); Mean Platelet Volume 8.4 fL (7.4-10.4); Nucleated Red Blood Cells % 0 %; Platelet Count 278 10^3/uL (130-400); Red Blood Cell Count 2.57 10^6/uL (4.20-5.40); Red Cell Dist. Width 17.9 % (11.5-14.5); White Blood Cell Count 15.1 10^3/uL (4.8-10.8)
[2023-11-12 05:05] LABS: ALT (SGPT) 13 U/L (0-35); AST (SGOT) 30 U/L (14-36); Albumin 3.5 g/dl (3.5-5.0); Alkaline Phosphatase 90 U/L (38-126); Blood Urea Nitrogen 17 mg/dl (7-17); Calcium 8.8 mg/dl (8.4-10.2); Carbon Dioxide 30 mmol/L (22-30); Chloride 99 mmol/L (98-107); Estimated Creatinine Clearance 60 ml/min; Glucose 116 mg/dl (70-99); Magnesium 1.6 mg/dl (1.6-2.3); Potassium 3.8 mmol/L (3.5-5.1); Sodium 135 mmol/L (135-145); Total Bilirubin 0.3 mg/dl (0.2-1.3); Total Protein 5.9 g/dl (6.3-8.2); eGFR > 60.00
[2023-11-12] MEDS: SYNTHROID 75 MCG PO (05:27)
[2023-11-12] MEDS: FIRVANQ 125 MG PO ×2 (05:27→13:12)
[2023-11-12 06:00] VITALS: BMI 17.8
[2023-11-12 08:06] VITALS: BP 145/90
--- NOTE | 2023-11-12 08:49 | W.PN.ONC2 ---
Today's Communication / Plan
-
Friday's Herceptin to be delayed x 1 week.
Impression
Impression
Confusion secondary to dehydration
stage Ia right breast carcinoma HR/HER2/agustin positive status post 6 cycles TCHP
Resolving C diff colitis
Plan
Plan
Office notified to delay Herceptin schedule for 11/13 to the following week 11/20.
TME 2* to UTI and dehydration resolved.
Will follow peripherally
Subjective/Objective
Chief Complaint
ACS Oncology F/U
Subjective
Weak. No other complaints. Very focused on upcoming Herceptin scheduled for this Friday
Vital Signs:
Vital Signs
Temp Pulse Resp BP Pulse Ox
98.4 F 87 16 145/90 97
11/12/23 08:06 11/12/23 08:06 11/12/23 08:06 11/12/23 08:06 11/12/23 08:06
Lab Results:
Laboratory Data
WBC 15.1 10^3/uL (4.8-10.8) H 11/12/23 04:20
Hgb 8.3 g/dL (12.0-16.0) L 11/12/23 04:20
Plt Count 278 10^3/uL (130-400) 11/12/23 04:20
eGFR > 60.00 11/12/23 04:20
Physical Exam
Cardiology: S1 and S2
Pulmonary: Clear
GI: Soft
Extremities: No C/C/E
--- NOTE | 2023-11-12 08:57 | W.PN.ID1 ---
Date of Service
Date of Service: November 12, 2023
Today's Communication
OK for DC.
See below.
Assessment / Plan
# E. coli UTI
- Transition ceftriaxone (d3) to cefuroxime 500mg po bid through 11/15/33, then trial of prophylactic methenamine 1g po bid for recurrent UTI.
# Recurrent C difficile currently on po vanco taper (her insurance does not cover fidaxomicin).
- Continue Vancomycin 125 mg po tid through 11/16, then bid through 11/23, then qd through 11/30, then qod through 12/07, then q72h through 12/14, then stop.
- Bezlotoxumab dose rescheduled from 11/10 to 11/18 at [facility].
#Stage III breast cancer - now on Herceptin
Hx thyroid cancer
Parkinson's disease
Chief Complaint
-: UTI and C-diff
Subjective / Review of Systems
Feels well today.
Vital Signs / Physical Exam
Vital Signs
Vital Signs
Temp Pulse Resp BP Pulse Ox
98.4 F 87 16 145/90 97
11/12/23 08:06 11/12/23 08:06 11/12/23 08:06 11/12/23 08:06 11/12/23 08:06
Physical Exam
Constitutional: No Acute Distress and Comfortable
Gastrointestinal: Soft, Non Tender and Non Distended
Genito-Urinary: Negative CVA Tenderness
Neurological: AO x 3
Objective Data
Lab Data
Lab Results
11/12/23 04:20
11/12/23 04:20
Estimated Creat Clear 60 ml/min 11/12/23 04:20
Lactic Acid 1.5 mmol/L (0.7-2.0) 11/10/23 12:15
Lactic Acid Cancelled 11/10/23 12:15
Total Bilirubin 0.3 mg/dl (0.2-1.3) 11/12/23 04:20
AST 30 U/L (14-36) 11/12/23 04:20
ALT 13 U/L (0-35) 11/12/23 04:20
Alkaline Phosphatase 90 U/L (38-126) 11/12/23 04:20
Most recent labs reviewed.
Micro Results:
11/10/23 12:48 Urine Culture - Final
Urine Escherichia coli
11/10/23 12:36 Blood Culture - Preliminary
Blood/Venous No Growth in 24 hours- Final report to follow
11/10/23 12:36 Blood Culture - Preliminary
Blood/Venous No Growth in 24 hours- Final report to follow
Care Review
Plan reviewed with: Physician (Dr. Abbasi)
[2023-11-12] MEDS: MAGNESIUM SULFATE 50 IV (09:50)
[2023-11-12] MEDS: NON-FORMULARY ITEM 1 CAP PO (09:57)
[2023-11-12] MEDS: FLUSH (NSS) 1 FLUSH IV ×2 (10:00→13:05)
[2023-11-12 10:32] VITALS: BP 165/98
--- NOTE | 2023-11-12 11:18 | W.PN.HOSP.TC ---
Addendum entered and electronically signed by Jasen Abbasi MD 11/12/23 15:17:
Moderate protein Calorie Malnutririon
Addendum entered and electronically signed by Jasen Abbasi MD 11/12/23 14:43:
TSH has been elevated.
Will increase Synthroid to 88 mcg for discharge
TSH to be repeated in 6 weeks
Original Note:
Today's Communication/Plan
-
Await TSH
Then Discharge
Assessment / Plan
Assessment / Plan
Awake alert oriented
Cardiovascular system S1-S2 appreciated
Chest clear to auscultation
Abdomen soft and nontender
No pedal edema
MANAGER OF BUSINESS OPERATIONS exam is nonfocal
# Encephalopathy likely secondary to UTI and dehydration.
Resolved.
Pyuria noted along with symptoms
cefuroxime 500mg po bid through 11/15/33, then methenamine 1g po bid for recurrent UTI.
CT of the head without any acute changes
# Hypokalemia and hypomagnesemia-replace IV magnesium
# Hyponatremia-Resolved. Likely Hypovolumic.
# Volume depletion with decreased poor p.o. intake and usually gets normal saline twice a week Tuesdays and Fridays
# History of C. difficile colitis diagnosed 11/01/2023
Bezlotoxumab was planned as OP on 11/10. Now will be as OP after discharge.
No diarrhea now
Infectious disease consultation appreciated
Per ID
'Continue Vancomycin 125 mg po tid through 11/16, then bid through 11/23, then qd through 11/30, then qod through 12/07, then q72h through 12/14, then stop.
Bezlotoxumab dose rescheduled from 11/10 to 11/18 at [facility]. '
# Leukocytosis-likely secondary to: [place] Stimulating factor administration
Also infection related likely
# Stage 1a breast cancer (Confirmed with Oncology) S/P Chemo and immunotherapy after lumpectomy
HER2/agustin positive status post Taxotere,Carboplatin,Herceptin,Perjeta
Pt says she is supposed to continue Herceptin only now.
[facility] Luisana Flores
# Anemia likely secondary to chemotherapy and malignancy
# Hypertension-Restart losartan
# Hypothyroidism-iatrogenic
History of thyroidectomy for medullary thyroid cancer
TSH high
Patient follows up with Dr. Gunderson at [facility]. She has an appointment in November
No changes in the dose recently.
She also states that she has been taking the medicines as she supposed to
Will repeat, if found to be higher we will go up on the dose to 88 mcg and have patient follow-up with Dr. Gunderson
# Hyperlipidemia-continue statin
# Parkinson's disease, continue Rytary and rasagiline
# Chronic cachexia and underweight BMI 18
Encourage p.o. intake
# DVT prophylaxis-subcutaneous Lovenox
# Full code
Spoke to from patient's cell phone.
D/W RN
Discussed with infectious disease
More than 30 minutes spent in discharge including
Final examination of the patient
Summarizing hospital stay
Instructions for continuing care to all relevant caregivers
Preparation of discharge records, prescriptions, and referral forms
Total time spent (in minutes): 32 min
Anticipated Discharge: Today
Subjective/Interval History
-
Date of Service: November 12, 2023
Objective Data
-
Labs:
Laboratory Results
11/12/23
04:20
WBC 15.1 H
Hgb 8.3 L
Hct 24.8 L
Plt Count 278
Sodium 135
Potassium 3.8
Chloride 99
Carbon Dioxide 30
BUN 17
Creatinine 0.5 L
Glucose 116 H
Calcium 8.8
Total Bilirubin 0.3
AST 30
ALT 13
Alkaline Phosphatase 90
Vital Signs:
Vital Signs
Temp Pulse Resp BP Pulse Ox
97.9 F 107 16 165/98 96
11/12/23 10:32 11/12/23 10:32 11/12/23 10:32 11/12/23 10:32 11/12/23 10:32
I&O
11/11/23 11/12/23 11/13/23
06:59 06:59 06:59
Intake Total 960 / 960 560 / 560
Balance 960 / 960 560 / 560
--- NOTE | 2023-11-12 13:11 | PN.CDI ---
CDI
- -
CDI:
Physician Documentation Request
Admit Date: 11/10/23 15:31
Dear Doctor Ayleen,
Please review the following and provide your response in the progress notes.
Clinical Indicators:
Pt admitted with UTI/ Recurrent CDIFF/ Immunocompromised on chemo for beast cancer
Documented throughout the record, ' # Chronic cachexia and underweight BMI 18 Encourage p.o. intake...'
Nutrition note 11/10, ' ...clinical data at admission pt with 2-13 lb weight loss (score 4). Review of records shows weight of 121.6 lbs from July 07 external medical summary; current wt 96 lbs 4 oz on 11-11-23. Pt appears to have lost 25
lbs (20.6% wt change < 5 months)-significant. During visit today pt reporting a usual wt of 115-120 lbs; feels she has had her appetite returning since she no longer has a metallic taste with meals. She is interested in gaining weight and was
encouraged to try frequent feedings daily as tolerated (no supplement planned at this time as pt will include pudding, custard or tapioca with meals to boost calorie, protein intakes). Estimated needs: 1526 calories (35 kcal/kg/wt gain/chemo/96 lbs
4 oz), 55 gms protein (1.25 gm/kg/ca); 1526 ml fluid (1 ml/kcal).....During visit RD able to observe appearance of mild loss at orbital, rib cage, some protrusion of clavicle, some depression temples. Due to estimated intakes <75% estimated energy
requirement for > 1 month and weight loss, pt meeting criteria for moderate protein/calorie malnutrition (ASPEN/AND guidelines, chronic illness). RD to follow with pt per level of care during hospitalization....'
Based on the above information and your assessment, which of the following most accurately represents the patient's nutritional status?
Moderate Protein Calorie Malnutrition
Mild Protein calorie Malnutrition
Other (please specify)
Elizabeth Criteria (ACP Hospitalist 2017)
2 or more criteria must be present for either
non severe or severe malnutrition
Note that the criteria differs related to the
presence of an acute or chronic illness
Acute Illness Chronic Illness
Energy Intake Non Severe: <75% for >7 days Non Severe: <75% for >1 month
Severe: <50% for >5 days Severe: <75% for >1 month
Weight Loss Non Severe: 1-2% over 1 week Non Severe: 5% over 1 month
5% over 1 month 7.5% over 3 months
7.5% over 3 months 10% over 6 months
1 year N/A 20% over 1 year
Severe: >2% over 1 week Severe: >5% over 1 month
>5% over 1 month >7.5% over 3 months
>7.5% over 3 months >10% over 6 months
1 year N/A >20% over 1 year
Body Fat Non Severe: Mild Decrease Non Severe: Mild Loss
Severe: Moderate Decrease Severe: Severe Loss
Muscle Mass Non Severe: Mild Decrease Non Severe: Mild Loss
Severe: Moderate Decrease Severe: Severe Loss
Fluid Accumulation Non Severe: Mild Accumulation Non Severe: Mild Accumulation
Severe: Moderate to severe Severe: Moderate to severe
accumulation accumulation
Reduced Front End Web Developer Strength Non Severe: N/A Non Severe: N/A
Severe: Measurably reduced Severe: Measurably reduced
Use of terms such as suspected, likely, concern for, or probable (associated with a specific diagnosis that is being evaluated, monitored, or treated as if it exists) are acceptable and can be coded in the inpatient setting, when documented at the
time of discharge.
Thank you,
Lynette Douglass RN
CDI Specialist
[place] [facility]
Please use your independent medical judgment in providing your response.
[2023-11-12] MEDS: COZAAR 25 MG PO (13:14)
[2023-11-12 13:52] LABS: Free T4 1.01 ng/dl (0.78-2.19)
[2023-11-12 14:40] VITALS: BP 130/85
--- NOTE | 2023-11-12 14:45 | W.DS.TRANS ---
Addendum entered and electronically signed by Jasen Abbasi MD 11/12/23 16:18:
Dictation- [id number]
Original Note:
DC Summary - Field Map Editor
-
Discharge Instructions:
Discharge Diagnosis/Procedures UTI, encephalopathy from UTI, electrolyte
abnormality, volume depletion, C. difficile,
breast cancer, anemia, hypertension,
hypothyroidism, high cholesterol, Parkinson
disease
Diet As tolerated
Activity As tolerated
Driving Restrictions As prior to admission
Blood Work Thyroid function test in 6 weeks
Other Services VN
Instructions:
Stand-Alone Forms:
Changes to Home Medications: Yes
Discharge Medications:
DC Medications w/original date entered in [employer]
carbidopa ER 36.25 mg-levodopa 145 mg capsule,extended release (Rytary) 1 cap PO TID PARKINSON 05/28/23
rasagiline 1 mg tablet 1 mg PO HS PARKINSON 05/28/23
simvastatin 40 mg tablet 40 mg PO HS High Cholesterol 05/28/23
loratadine 10 mg tablet (Claritin) 10 mg PO DAILYPRN PRN chemo treatment 09/30/23
losartan 25 mg tablet 25 mg PO HS Blood Pressure 11/10/23
polyethylene glycol 3350 17 gram oral powder packet (Miralax) 17 g PO DAILYPRN PRN constipation 11/10/23
trastuzumab 150 mg intravenous solution (Herceptin) 600 mg IV Q3W Cancer 11/10/23
vancomycin 125 mg capsule 125 mg PO UD c. diff 11/10/23
cefuroxime axetil 500 mg tablet 500 mg PO BID Infection #11 tabs 11/12/23
levothyroxine 88 mcg tablet (Synthroid) 88 mcg PO DAILY Thyroid #60 tabs 11/12/23
Home Medication Changes
Synthroid dose changed
new
cefuroxime axetil 500 mg tablet 500 mg PO BID Infection #11 tabs 11/12/23
Pending Results: No
[2023-11-12] MEDS: CEFTIN 500 MG PO (14:51)
--- NOTE | 2023-11-12 15:40 | CM ---
Patient for d/c home today.
Patient denies home care needs.
IMM completed.
Spouse will transport.
Plan: home no needs.
--- NOTE | 2023-11-12 16:24 | W.DS.TRANS ---
Addendum entered and electronically signed by Jasen Abbasi MD 11/12/23 16:28:
Dictation- [id number]
Original Note:
DC Summary - Energy Analyst
-
Discharge Instructions:
Discharge Diagnosis/Procedures UTI, encephalopathy from UTI, electrolyte
abnormality, volume depletion, C. difficile,
breast cancer, anemia, hypertension,
hypothyroidism, high cholesterol, Parkinson
disease
Diet As tolerated
Activity As tolerated
Driving Restrictions As prior to admission
Blood Work Thyroid function test in 6 weeks
Other Services VN
Instructions:
Stand-Alone Forms:
Changes to Home Medications: Yes
Discharge Medications:
DC Medications w/original date entered in [employer]
carbidopa ER 36.25 mg-levodopa 145 mg capsule,extended release (Rytary) 1 cap PO TID PARKINSON 05/28/23
rasagiline 1 mg tablet 1 mg PO HS PARKINSON 05/28/23
simvastatin 40 mg tablet 40 mg PO HS High Cholesterol 05/28/23
loratadine 10 mg tablet (Claritin) 10 mg PO DAILYPRN PRN chemo treatment 09/30/23
losartan 25 mg tablet 25 mg PO HS Blood Pressure 11/10/23
polyethylene glycol 3350 17 gram oral powder packet (Miralax) 17 g PO DAILYPRN PRN constipation 11/10/23
trastuzumab 150 mg intravenous solution (Herceptin) 600 mg IV Q3W Cancer 11/10/23
vancomycin 125 mg capsule 125 mg PO UD c. diff 11/10/23
cefuroxime axetil 500 mg tablet 500 mg PO BID Infection #11 tabs 11/12/23
levothyroxine 88 mcg tablet (Synthroid) 88 mcg PO DAILY Thyroid #60 tabs 11/12/23
methenamine hippurate 1 gram tablet 1 g PO BID uti #60 tabs 11/12/23
Home Medication Changes
Synthroid dose changed
Hiprex and Ceftin new
Pending Results: No
== END 2023-11-12 16:00 | disposition home or self-care (01) | DRG 690 ==
LOC: 4 WEST ACU 15:31
PROVIDERS: Clinical Nurse Specialist Family Health; Nurse Practitioner; ADMITTING PHYSICIAN Hospitalist; CONSULT PHYSICIAN Student in an Organized Health Care Education/Training Program; EMERGENCY PHYSICIAN Emergency Medicine; FAMILY PHYSICIAN Physician Assistant Medical; OTHER PHYSICIAN Internal Medicine Hematology & Oncology
DX: N39.0 Urinary tract infection, site not specified (principal); G93.49 Other encephalopathy; R64 Cachexia; Z68.1 Body mass index [BMI] 19.9 or less, adult; A04.71 Enterocolitis due to Clostridium difficile, recurrent; E44.0 Moderate protein-calorie malnutrition; E87.1 Hypo-osmolality and hyponatremia; D84.821 Immunodeficiency due to drugs; C50.911 Malignant neoplasm of unspecified site of right female breast; G20.A1 Parkinson's disease without dyskinesia, without mention of fluctuations; I10 Essential (primary) hypertension; E89.0 Postprocedural hypothyroidism; D63.0 Anemia in neoplastic disease; D64.81 Anemia due to antineoplastic chemotherapy; T45.1X5A Adverse effect of antineoplastic and immunosuppressive drugs, initial encounter; B96.20 Unspecified Escherichia coli [E. coli] as the cause of diseases classified elsewhere; E86.0 Dehydration; E87.6 Hypokalemia; E83.42 Hypomagnesemia; E78.5 Hyperlipidemia, unspecified; Z17.0 Estrogen receptor positive status [ER+]; Z85.850 Personal history of malignant neoplasm of thyroid; Z79.890 Hormone replacement therapy; Z79.899 Other long term (current) drug therapy; Z88.2 Allergy status to sulfonamides
CPT/HCPCS: 51701; 70450; 71046; 80053; 81003; 81015; 82533; 83605; 83735; 83930; 83935; 84300; 84439; 84443; 85025; 86803; 87040; 87077; 87086; 87186; 93005; 96374; 96375; 97162; 97165; 99285

== ENCOUNTER → 2023-11-14 15:21 | Outpatient (REF) | payer MEDICARE, OTHER, SELFPAY ==
[2023-11-14 12:01] LABS: % Basophils 0.4 % (0-2); % Eosinophils 0.4 % (0-6); % Immature Granulocytes 0.4 % (0-0.5); % Lymphocytes 5.5 % (20.5-51.1); % Monocytes 3.7 % (1.7-9.3); % Neutrophils 89.6 % (42.2-75.2); Absolute Basophils 0.1 10^3/uL (0-0.2); Absolute Eosinophils 0.1 10^3/uL (0-0.7); Absolute Immature Granulocytes 0.1 10^3/uL (0-0.05); Absolute Lymphocytes 0.9 10^3/uL (1.2-3.4); Absolute Monocytes 0.6 10^3/uL (0.1-0.6); Hematocrit 30.5 % (37.0-47.0); Mean Corp Hgb Conc. 32.8 g/dL (33.0-37.0); Mean Corpuscular Hgb 32.8 pg (27.0-31.0); Mean Platelet Volume 8.9 fL (7.4-10.4); Nucleated Red Blood Cells % 0 %; Platelet Count 294 10^3/uL (130-400); Red Blood Cell Count 3.05 10^6/uL (4.20-5.40); Red Cell Dist. Width 17.7 % (11.5-14.5); White Blood Cell Count 16.7 10^3/uL (4.8-10.8)
[2023-11-14 12:18] LABS: ALT (SGPT) < 10 U/L (0-35); AST (SGOT) 37 U/L (14-36); Albumin 4.3 g/dl (3.5-5.0); Alkaline Phosphatase 99 U/L (38-126); Blood Urea Nitrogen 15 mg/dl (7-17); Calcium 9.7 mg/dl (8.4-10.2); Carbon Dioxide 29 mmol/L (22-30); Chloride 94 mmol/L (98-107); Glucose 101 mg/dl (70-99); Magnesium 1.5 mg/dl (1.6-2.3); Potassium 3.6 mmol/L (3.5-5.1); Sodium 133 mmol/L (135-145); Total Bilirubin 0.5 mg/dl (0.2-1.3); Total Protein 6.7 g/dl (6.3-8.2); eGFR > 60.00
[2023-11-21 14:44] LABS: % Basophils 0.8 % (0-2); % Eosinophils 0.4 % (0-6); % Immature Granulocytes 0.2 % (0-0.5); % Lymphocytes 15.1 % (20.5-51.1); % Monocytes 5.5 % (1.7-9.3); Absolute Lymphocytes 0.7 10^3/uL (1.2-3.4); Absolute Monocytes 0.3 10^3/uL (0.1-0.6); Absolute Neutrophils 3.7 10^3/uL (1.4-6.5); Hematocrit 28.5 % (37.0-47.0); Hemoglobin 9.4 g/dL (12.0-16.0); Mean Corpuscular Hgb 32.1 pg (27.0-31.0); Mean Corpuscular Volume 97.3 fL (81.0-99.0); Nucleated Red Blood Cells % 0 %; Platelet Count 363 10^3/uL (130-400); Red Blood Cell Count 2.93 10^6/uL (4.20-5.40); Red Cell Dist. Width 16.5 % (11.5-14.5); White Blood Cell Count 4.7 10^3/uL (4.8-10.8)
[2023-11-21 14:59] LABS: ALT (SGPT) 11 U/L (0-35); AST (SGOT) 16 U/L (14-36); Albumin 4.2 g/dl (3.5-5.0); Alkaline Phosphatase 79 U/L (38-126); Blood Urea Nitrogen 18 mg/dl (7-17); Calcium 9.4 mg/dl (8.4-10.2); Carbon Dioxide 30 mmol/L (22-30); Chloride 97 mmol/L (98-107); Glucose 151 mg/dl (70-99); Potassium 3.7 mmol/L (3.5-5.1); Sodium 134 mmol/L (135-145); Total Bilirubin 0.4 mg/dl (0.2-1.3); Total Protein 6.6 g/dl (6.3-8.2); eGFR > 60.00
[2023-11-25 16:18] LABS: Magnesium 1.7 mg/dl (1.6-2.3)
== END ==
LOC: OIDL 15:21
PROVIDERS: ATTENDING PHYSICIAN Internal Medicine Hematology & Oncology
DX: C50.411 Malignant neoplasm of upper-outer quadrant of right female breast (principal); R19.7 Diarrhea, unspecified; A04.72 Enterocolitis due to Clostridium difficile, not specified as recurrent; Z17.0 Estrogen receptor positive status [ER+]
CPT/HCPCS: 80053; 83735; 85025

== ENCOUNTER 2023-11-19 13:41 | Outpatient (RCR) | payer MEDICARE, OTHER, SELFPAY ==
[2023-11-19 13:55] VITALS: BP 127/81
[2023-11-19] MEDS: ZINPLAVA 270 MG IV (14:28)
== END 2023-11-20 11:17 | disposition home or self-care (01) ==
LOC: OID 13:41
PROVIDERS: ATTENDING PHYSICIAN Internal Medicine Infectious Disease; FAMILY PHYSICIAN Physician Assistant Medical
DX: A04.71 Enterocolitis due to Clostridium difficile, recurrent (principal); J47.9 Bronchiectasis, uncomplicated; G20.B2 Parkinson's disease with dyskinesia, with fluctuations
CPT/HCPCS: 96365; J0565

== ENCOUNTER → 2023-12-01 10:49 | Outpatient (REF) | payer MEDICARE, OTHER, SELFPAY ==
[2023-12-01 11:12] LABS: Magnesium 1.9 mg/dl (1.6-2.3)
== END ==
LOC: OIDL 10:49
PROVIDERS: ATTENDING PHYSICIAN Internal Medicine Hematology & Oncology
DX: C50.411 Malignant neoplasm of upper-outer quadrant of right female breast (principal); Z85.850 Personal history of malignant neoplasm of thyroid; R19.7 Diarrhea, unspecified; A04.72 Enterocolitis due to Clostridium difficile, not specified as recurrent
CPT/HCPCS: 83735

== ENCOUNTER → 2023-12-05 11:45 | Outpatient (REF) | payer MEDICARE, OTHER, SELFPAY ==
[2023-12-05 12:03] LABS: % Basophils 0.8 % (0-2); % Eosinophils 1.6 % (0-6); % Lymphocytes 14.1 % (20.5-51.1); % Monocytes 5.5 % (1.7-9.3); Absolute Eosinophils 0.1 10^3/uL (0-0.7); Absolute Lymphocytes 0.7 10^3/uL (1.2-3.4); Absolute Monocytes 0.3 10^3/uL (0.1-0.6); Absolute Neutrophils 3.9 10^3/uL (1.4-6.5); Hematocrit 33.6 % (37.0-47.0); Hemoglobin 11.1 g/dL (12.0-16.0); Mean Corpuscular Hgb 31.4 pg (27.0-31.0); Mean Corpuscular Volume 94.9 fL (81.0-99.0); Mean Platelet Volume 9.1 fL (7.4-10.4); Nucleated Red Blood Cells % 0 %; Platelet Count 321 10^3/uL (130-400); Red Blood Cell Count 3.54 10^6/uL (4.20-5.40); Red Cell Dist. Width 14.6 % (11.5-14.5); White Blood Cell Count 5.1 10^3/uL (4.8-10.8)
[2023-12-05 12:16] LABS: ALT (SGPT) 10 U/L (0-35); AST (SGOT) 28 U/L (14-36); Albumin 4.5 g/dl (3.5-5.0); Alkaline Phosphatase 97 U/L (38-126); Blood Urea Nitrogen 17 mg/dl (7-17); Calcium 9.5 mg/dl (8.4-10.2); Carbon Dioxide 30 mmol/L (22-30); Chloride 98 mmol/L (98-107); Glucose 92 mg/dl (70-99); Sodium 135 mmol/L (135-145); Total Bilirubin 0.5 mg/dl (0.2-1.3); Total Protein 6.8 g/dl (6.3-8.2); eGFR > 60.00
== END ==
LOC: OIDL 11:45
PROVIDERS: ATTENDING PHYSICIAN Internal Medicine Hematology & Oncology
DX: C50.411 Malignant neoplasm of upper-outer quadrant of right female breast (principal); Z85.850 Personal history of malignant neoplasm of thyroid; R19.7 Diarrhea, unspecified; A04.72 Enterocolitis due to Clostridium difficile, not specified as recurrent
CPT/HCPCS: 80053; 85025

== ENCOUNTER → 2023-12-09 15:41 | Outpatient (REF) | payer MEDICARE, OTHER, SELFPAY | LOC: OIDL 15:41 | PROVIDERS: ATTENDING PHYSICIAN Internal Medicine Hematology & Oncology | DX: C50.411 Malignant neoplasm of upper-outer quadrant of right female breast (principal) | CPT/HCPCS: 83735 ==

== ENCOUNTER → 2023-12-10 11:55 | Outpatient (REF) | payer MEDICARE, OTHER, SELFPAY ==
[2023-12-10 13:40] LABS: % Basophils 1.5 % (0-2); % Eosinophils 1.5 % (0-6); % Immature Granulocytes 0.2 % (0-0.5); % Lymphocytes 25.8 % (20.5-51.1); Absolute Basophils 0.1 10^3/uL (0-0.2); Absolute Eosinophils 0.1 10^3/uL (0-0.7); Absolute Lymphocytes 1.2 10^3/uL (1.2-3.4); Absolute Monocytes 0.3 10^3/uL (0.1-0.6); Absolute Neutrophils 2.9 10^3/uL (1.4-6.5); Hematocrit 33.7 % (37.0-47.0); Hemoglobin 11.2 g/dL (12.0-16.0); Mean Corp Hgb Conc. 33.2 g/dL (33.0-37.0); Mean Corpuscular Hgb 31.5 pg (27.0-31.0); Mean Corpuscular Volume 94.7 fL (81.0-99.0); Mean Platelet Volume 9.3 fL (7.4-10.4); Nucleated Red Blood Cells % 0 %; Platelet Count 251 10^3/uL (130-400); Red Blood Cell Count 3.56 10^6/uL (4.20-5.40); Red Cell Dist. Width 14.3 % (11.5-14.5); White Blood Cell Count 4.6 10^3/uL (4.8-10.8)
[2023-12-10 13:58] LABS: ALT (SGPT) < 10 U/L (0-35); AST (SGOT) 21 U/L (14-36); Albumin 4.5 g/dl (3.5-5.0); Alkaline Phosphatase 86 U/L (38-126); Blood Urea Nitrogen 16 mg/dl (7-17); Calcium 9.3 mg/dl (8.4-10.2); Carbon Dioxide 32 mmol/L (22-30); Chloride 97 mmol/L (98-107); Glucose 88 mg/dl (70-99); Potassium 3.4 mmol/L (3.5-5.1); Sodium 136 mmol/L (135-145); Total Bilirubin 0.6 mg/dl (0.2-1.3); Total Protein 6.7 g/dl (6.3-8.2); eGFR > 60.00
== END ==
LOC: REG 11:55
PROVIDERS: ATTENDING PHYSICIAN Internal Medicine Hematology & Oncology; FAMILY PHYSICIAN Physician Assistant Medical
DX: C50.411 Malignant neoplasm of upper-outer quadrant of right female breast (principal); Z85.850 Personal history of malignant neoplasm of thyroid; R19.7 Diarrhea, unspecified; A04.72 Enterocolitis due to Clostridium difficile, not specified as recurrent
CPT/HCPCS: 36415; 80053; 85025

== ENCOUNTER → 2023-12-12 15:16 | Outpatient (REF) | payer MEDICARE, OTHER, SELFPAY ==
[2023-12-12 12:46] LABS: % Basophils 0.8 % (0-2); % Eosinophils 0.4 % (0-6); % Immature Granulocytes 0.3 % (0-0.5); % Lymphocytes 14.5 % (20.5-51.1); % Monocytes 5.2 % (1.7-9.3); % Neutrophils 78.8 % (42.2-75.2); Absolute Basophils 0.1 10^3/uL (0-0.2); Absolute Lymphocytes 1.1 10^3/uL (1.2-3.4); Absolute Monocytes 0.4 10^3/uL (0.1-0.6); Absolute Neutrophils 5.7 10^3/uL (1.4-6.5); Hematocrit 35.6 % (37.0-47.0); Hemoglobin 11.8 g/dL (12.0-16.0); Mean Corp Hgb Conc. 33.1 g/dL (33.0-37.0); Mean Corpuscular Hgb 31.1 pg (27.0-31.0); Mean Corpuscular Volume 93.7 fL (81.0-99.0); Mean Platelet Volume 9.6 fL (7.4-10.4); Nucleated Red Blood Cells % 0 %; Platelet Count 258 10^3/uL (130-400); Red Cell Dist. Width 14.5 % (11.5-14.5); White Blood Cell Count 7.3 10^3/uL (4.8-10.8)
[2023-12-12 12:58] LABS: ALT (SGPT) < 10 U/L (0-35); AST (SGOT) 15 U/L (14-36); Albumin 4.7 g/dl (3.5-5.0); Alkaline Phosphatase 90 U/L (38-126); Blood Urea Nitrogen 19 mg/dl (7-17); Calcium 9.6 mg/dl (8.4-10.2); Carbon Dioxide 29 mmol/L (22-30); Chloride 99 mmol/L (98-107); Glucose 91 mg/dl (70-99); Potassium 3.7 mmol/L (3.5-5.1); Sodium 137 mmol/L (135-145); Total Bilirubin 0.5 mg/dl (0.2-1.3); eGFR > 60.00
== END ==
LOC: OIDL 15:16
PROVIDERS: ATTENDING PHYSICIAN Internal Medicine Hematology & Oncology
DX: C50.411 Malignant neoplasm of upper-outer quadrant of right female breast (principal)
CPT/HCPCS: 80053; 85025

== ENCOUNTER → 2023-12-25 14:44 | Outpatient (REF) | payer MEDICARE, OTHER, SELFPAY ==
[2023-12-25 16:29] LABS: Urine Albumin Negative (Neg - Trace); Urine Bilirubin Negative (Negative); Urine Character Clear (Clear); Urine Color Straw; Urine Glucose Negative (Negative); Urine Ketone Negative (Negative); Urine Leukocyte Trace (Negative); Urine Nitrite Negative (Negative); Urine Occult Blood 2+ (Negative); Urine Urobilinogen Negative (Neg - 1+)
[2023-12-25 16:40] LABS: % Basophils 0.7 % (0-2); % Eosinophils 0.7 % (0-6); % Lymphocytes 22.3 % (20.5-51.1); % Monocytes 5.2 % (1.7-9.3); % Neutrophils 71.1 % (42.2-75.2); Absolute Lymphocytes 1.2 10^3/uL (1.2-3.4); Absolute Monocytes 0.3 10^3/uL (0.1-0.6); Absolute Neutrophils 3.8 10^3/uL (1.4-6.5); Hematocrit 39.9 % (37.0-47.0); Hemoglobin 13.2 g/dL (12.0-16.0); Mean Corp Hgb Conc. 33.1 g/dL (33.0-37.0); Mean Corpuscular Hgb 30.8 pg (27.0-31.0); Mean Platelet Volume 9.5 fL (7.4-10.4); Nucleated Red Blood Cells % 0 %; Platelet Count 319 10^3/uL (130-400); Red Blood Cell Count 4.29 10^6/uL (4.20-5.40); Red Cell Dist. Width 13.9 % (11.5-14.5); White Blood Cell Count 5.4 10^3/uL (4.8-10.8)
[2023-12-25 16:41] LABS: Urine Bacteria Few (Negative)
[2023-12-25 16:47] LABS: ALT (SGPT) 12 U/L (0-35); AST (SGOT) 20 U/L (14-36); Alkaline Phosphatase 96 U/L (38-126); Blood Urea Nitrogen 16 mg/dl (7-17); Calcium 9.9 mg/dl (8.4-10.2); Carbon Dioxide 33 mmol/L (22-30); Chloride 96 mmol/L (98-107); Glucose 101 mg/dl (70-99); Magnesium 1.9 mg/dl (1.6-2.3); Potassium 4.3 mmol/L (3.5-5.1); Sodium 137 mmol/L (135-145); Total Bilirubin 0.6 mg/dl (0.2-1.3); Total Protein 7.8 g/dl (6.3-8.2); eGFR > 60.00
== END ==
LOC: REG 14:44
PROVIDERS: ATTENDING PHYSICIAN Internal Medicine Hematology & Oncology; FAMILY PHYSICIAN Physician Assistant Medical
DX: C50.411 Malignant neoplasm of upper-outer quadrant of right female breast (principal); Z85.850 Personal history of malignant neoplasm of thyroid; R19.7 Diarrhea, unspecified; A04.72 Enterocolitis due to Clostridium difficile, not specified as recurrent; N39.0 Urinary tract infection, site not specified
CPT/HCPCS: 36415; 80053; 81003; 81015; 83735; 85025; 87077; 87086; 87186

== ENCOUNTER → 2024-01-07 11:49 | Outpatient (REF) | payer MEDICARE, OTHER, SELFPAY ==
[2024-01-07 10:20] LABS: % Basophils 0.3 % (0-2); % Eosinophils 0.3 % (0-6); % Immature Granulocytes 0.1 % (0-0.5); % Monocytes 7.3 % (1.7-9.3); Absolute Lymphocytes 0.4 10^3/uL (1.2-3.4); Absolute Monocytes 0.6 10^3/uL (0.1-0.6); Absolute Neutrophils 7.5 10^3/uL (1.4-6.5); Hematocrit 36.5 % (37.0-47.0); Hemoglobin 11.9 g/dL (12.0-16.0); Mean Corp Hgb Conc. 32.6 g/dL (33.0-37.0); Mean Corpuscular Hgb 30.1 pg (27.0-31.0); Mean Corpuscular Volume 92.4 fL (81.0-99.0); Mean Platelet Volume 9.5 fL (7.4-10.4); Platelet Count 249 10^3/uL (130-400); Red Blood Cell Count 3.95 10^6/uL (4.20-5.40); Red Cell Dist. Width 13.7 % (11.5-14.5); White Blood Cell Count 8.6 10^3/uL (4.8-10.8)
[2024-01-07 11:49] LABS: ALT (SGPT) < 10 U/L (0-35); AST (SGOT) 22 U/L (14-36); Albumin 4.2 g/dl (3.5-5.0); Alkaline Phosphatase 108 U/L (38-126); Blood Urea Nitrogen 22 mg/dl (7-17); Calcium 9.2 mg/dl (8.4-10.2); Carbon Dioxide 30 mmol/L (22-30); Chloride 97 mmol/L (98-107); Glucose 118 mg/dl (70-99); Potassium 3.8 mmol/L (3.5-5.1); Sodium 135 mmol/L (135-145); Total Bilirubin 0.8 mg/dl (0.2-1.3); Total Protein 6.7 g/dl (6.3-8.2); eGFR > 60.00
== END ==
LOC: OIDL 11:49
PROVIDERS: ATTENDING PHYSICIAN Internal Medicine Hematology & Oncology
DX: C50.411 Malignant neoplasm of upper-outer quadrant of right female breast (principal)
CPT/HCPCS: 80053; 85025

== ENCOUNTER → 2024-01-08 09:31 | Outpatient (REF) | payer MEDICARE, OTHER, SELFPAY | LOC: RCS 09:31 | PROVIDERS: ATTENDING PHYSICIAN Internal Medicine Cardiovascular Disease; FAMILY PHYSICIAN Physician Assistant Medical | DX: Z85.3 Personal history of malignant neoplasm of breast (principal); T45.1X5A Adverse effect of antineoplastic and immunosuppressive drugs, initial encounter | CPT/HCPCS: 93306; 93356 ==

== ENCOUNTER → 2024-01-19 13:19 | Outpatient (REF) | payer MEDICARE, OTHER, SELFPAY ==
[2024-01-19 12:47] LABS: Urine Albumin Negative (Neg - Trace); Urine Bilirubin Negative (Negative); Urine Character Clear (Clear); Urine Color Yellow; Urine Glucose Negative (Negative); Urine Ketone Negative (Negative); Urine Leukocyte Negative (Negative); Urine Nitrite Negative (Negative); Urine Occult Blood 1+ (Negative); Urine Specific Gravity 1.015 (<1.030); Urine Urobilinogen Negative (Neg - 1+)
[2024-01-19 13:15] LABS: Urine Red Blood Cell 0-2 /HPF (0-2)
== END ==
LOC: OIDL 13:19
PROVIDERS: ATTENDING PHYSICIAN Internal Medicine Hematology & Oncology
DX: C50.411 Malignant neoplasm of upper-outer quadrant of right female breast (principal); N39.0 Urinary tract infection, site not specified
CPT/HCPCS: 80053; 81003; 81015; 85025; 87077; 87086; 87186

== ENCOUNTER → 2024-02-09 15:53 | Outpatient (REF) | payer MEDICARE, OTHER, SELFPAY ==
[2024-02-09 13:33] LABS: % Basophils 0.4 % (0-2); % Eosinophils 0.6 % (0-6); % Immature Granulocytes 0.3 % (0-0.5); % Lymphocytes 3.5 % (20.5-51.1); % Monocytes 4.3 % (1.7-9.3); % Neutrophils 90.9 % (42.2-75.2); Absolute Eosinophils 0.1 10^3/uL (0-0.7); Absolute Lymphocytes 0.4 10^3/uL (1.2-3.4); Absolute Monocytes 0.5 10^3/uL (0.1-0.6); Absolute Neutrophils 9.7 10^3/uL (1.4-6.5); Hemoglobin 11.5 g/dL (12.0-16.0); Mean Corp Hgb Conc. 32.9 g/dL (33.0-37.0); Mean Corpuscular Volume 88.2 fL (81.0-99.0); Mean Platelet Volume 9.7 fL (7.4-10.4); Nucleated Red Blood Cells % 0 %; Platelet Count 251 10^3/uL (130-400); Red Blood Cell Count 3.97 10^6/uL (4.20-5.40); Red Cell Dist. Width 14.7 % (11.5-14.5); White Blood Cell Count 10.6 10^3/uL (4.8-10.8)
[2024-02-09 13:53] LABS: ALT (SGPT) < 10 U/L (0-35); AST (SGOT) 21 U/L (14-36); Albumin 4.2 g/dl (3.5-5.0); Alkaline Phosphatase 82 U/L (38-126); Blood Urea Nitrogen 28 mg/dl (7-17); Calcium 9.1 mg/dl (8.4-10.2); Carbon Dioxide 28 mmol/L (22-30); Chloride 100 mmol/L (98-107); Glucose 166 mg/dl (70-99); Potassium 4.1 mmol/L (3.5-5.1); Sodium 138 mmol/L (135-145); Total Bilirubin 0.4 mg/dl (0.2-1.3); Total Protein 6.7 g/dl (6.3-8.2); eGFR > 60.00
== END ==
LOC: OIDL 15:53
PROVIDERS: ATTENDING PHYSICIAN Internal Medicine Hematology & Oncology
DX: C50.411 Malignant neoplasm of upper-outer quadrant of right female breast (principal)
CPT/HCPCS: 80053; 85025

== ENCOUNTER → 2024-02-26 10:50 | Outpatient (REF) | payer MEDICARE, OTHER, SELFPAY ==
[2024-02-26 12:14] LABS: % Basophils 0.4 % (0-2); % Eosinophils 0.4 % (0-6); % Lymphocytes 6.4 % (20.5-51.1); % Monocytes 4.9 % (1.7-9.3); % Neutrophils 85.9 % (42.2-75.2); Absolute Immature Granulocytes 0.2 10^3/uL (0-0.05); Absolute Lymphocytes 0.5 10^3/uL (1.2-3.4); Absolute Monocytes 0.4 10^3/uL (0.1-0.6); Hematocrit 38.3 % (37.0-47.0); Hemoglobin 12.5 g/dL (12.0-16.0); Mean Corp Hgb Conc. 32.6 g/dL (33.0-37.0); Mean Corpuscular Hgb 27.7 pg (27.0-31.0); Mean Corpuscular Volume 84.9 fL (81.0-99.0); Mean Platelet Volume 9.2 fL (7.4-10.4); Nucleated Red Blood Cells % 0 %; Platelet Count 347 10^3/uL (130-400); Red Blood Cell Count 4.51 10^6/uL (4.20-5.40); Red Cell Dist. Width 15.3 % (11.5-14.5); White Blood Cell Count 8.1 10^3/uL (4.8-10.8)
[2024-02-26 12:41] LABS: ALT (SGPT) < 10 U/L (0-35); AST (SGOT) 22 U/L (14-36); Albumin 4.4 g/dl (3.5-5.0); Alkaline Phosphatase 88 U/L (38-126); Blood Urea Nitrogen 30 mg/dl (7-17); Calcium 9.4 mg/dl (8.4-10.2); Carbon Dioxide 30 mmol/L (22-30); Chloride 100 mmol/L (98-107); Glucose 103 mg/dl (70-99); Potassium 3.9 mmol/L (3.5-5.1); Sodium 142 mmol/L (135-145); Total Bilirubin 0.4 mg/dl (0.2-1.3); Total Protein 7.4 g/dl (6.3-8.2); eGFR > 60.00
[2024-02-26 12:56] LABS: Vitamin D, 25-OH*** 19.8 ng/mL (30-80)
== END ==
LOC: REG 10:50
PROVIDERS: ATTENDING PHYSICIAN Internal Medicine Hematology & Oncology; FAMILY PHYSICIAN Physician Assistant Medical
DX: C50.411 Malignant neoplasm of upper-outer quadrant of right female breast (principal); Z85.850 Personal history of malignant neoplasm of thyroid; R19.7 Diarrhea, unspecified; A04.72 Enterocolitis due to Clostridium difficile, not specified as recurrent; N39.0 Urinary tract infection, site not specified; Z79.899 Other long term (current) drug therapy
CPT/HCPCS: 36415; 80053; 82306; 85025

== ENCOUNTER → 2024-03-22 15:59 | Outpatient (REF) | payer MEDICARE, OTHER, SELFPAY ==
[2024-03-22 12:19] LABS: % Basophils 0.6 % (0-2); % Eosinophils 1.4 % (0-6); % Immature Granulocytes 0.2 % (0-0.5); % Lymphocytes 9.2 % (20.5-51.1); % Monocytes 8.2 % (1.7-9.3); % Neutrophils 80.4 % (42.2-75.2); Absolute Eosinophils 0.1 10^3/uL (0-0.7); Absolute Lymphocytes 0.5 10^3/uL (1.2-3.4); Absolute Monocytes 0.4 10^3/uL (0.1-0.6); Absolute Neutrophils 4.1 10^3/uL (1.4-6.5); Hematocrit 35.6 % (37.0-47.0); Hemoglobin 11.5 g/dL (12.0-16.0); Mean Corp Hgb Conc. 32.3 g/dL (33.0-37.0); Mean Corpuscular Hgb 28.3 pg (27.0-31.0); Mean Corpuscular Volume 87.7 fL (81.0-99.0); Mean Platelet Volume 9.2 fL (7.4-10.4); Nucleated Red Blood Cells % 0 %; Platelet Count 315 10^3/uL (130-400); Red Blood Cell Count 4.06 10^6/uL (4.20-5.40); Red Cell Dist. Width 15.8 % (11.5-14.5); White Blood Cell Count 5.1 10^3/uL (4.8-10.8)
[2024-03-22 13:10] LABS: ALT (SGPT) < 10 U/L (0-35); AST (SGOT) 22 U/L (14-36); Albumin 4.3 g/dl (3.5-5.0); Alkaline Phosphatase 89 U/L (38-126); Blood Urea Nitrogen 28 mg/dl (7-17); Calcium 9.3 mg/dl (8.4-10.2); Carbon Dioxide 29 mmol/L (22-30); Chloride 102 mmol/L (98-107); Glucose 114 mg/dl (70-99); Potassium 4.2 mmol/L (3.5-5.1); Sodium 144 mmol/L (135-145); Total Bilirubin 0.3 mg/dl (0.2-1.3); Total Protein 7.3 g/dl (6.3-8.2); eGFR > 60.00
== END ==
LOC: OIDL 15:59
PROVIDERS: ATTENDING PHYSICIAN Internal Medicine Hematology & Oncology
DX: C50.411 Malignant neoplasm of upper-outer quadrant of right female breast (principal); Z85.850 Personal history of malignant neoplasm of thyroid; R19.7 Diarrhea, unspecified
CPT/HCPCS: 80053; 85025

== ENCOUNTER → 2024-04-13 09:28 | Outpatient (REF) | payer MEDICARE, OTHER, SELFPAY | LOC: RCS 09:28 | PROVIDERS: ATTENDING PHYSICIAN Internal Medicine Cardiovascular Disease; FAMILY PHYSICIAN Physician Assistant Medical | DX: R06.09 Other forms of dyspnea (principal); Z85.3 Personal history of malignant neoplasm of breast; T45.1X5D Adverse effect of antineoplastic and immunosuppressive drugs, subsequent encounter | CPT/HCPCS: 93306; 93356 ==

== ENCOUNTER → 2024-05-03 12:19 | Outpatient (REF) | payer MEDICARE, OTHER, SELFPAY ==
[2024-05-03 09:55] LABS: % Basophils 0.6 % (0-2); % Eosinophils 1.6 % (0-6); % Immature Granulocytes 0.1 % (0-0.5); % Lymphocytes 8.2 % (20.5-51.1); % Monocytes 6.6 % (1.7-9.3); % Neutrophils 82.9 % (42.2-75.2); Absolute Eosinophils 0.1 10^3/uL (0-0.7); Absolute Lymphocytes 0.6 10^3/uL (1.2-3.4); Absolute Monocytes 0.5 10^3/uL (0.1-0.6); Absolute Neutrophils 5.8 10^3/uL (1.4-6.5); Hematocrit 33.7 % (37.0-47.0); Hemoglobin 10.7 g/dL (12.0-16.0); Mean Corp Hgb Conc. 31.8 g/dL (33.0-37.0); Mean Corpuscular Hgb 27.9 pg (27.0-31.0); Mean Platelet Volume 8.9 fL (7.4-10.4); Nucleated Red Blood Cells % 0 %; Platelet Count 254 10^3/uL (130-400); Red Blood Cell Count 3.83 10^6/uL (4.20-5.40); Red Cell Dist. Width 15.6 % (11.5-14.5)
[2024-05-03 10:04] LABS: ALT (SGPT) 10 U/L (0-35); AST (SGOT) 23 U/L (14-36); Albumin 4.2 g/dl (3.5-5.0); Alkaline Phosphatase 75 U/L (38-126); Blood Urea Nitrogen 28 mg/dl (7-17); Calcium 9.4 mg/dl (8.4-10.2); Carbon Dioxide 29 mmol/L (22-30); Chloride 99 mmol/L (98-107); Glucose 143 mg/dl (70-99); Potassium 3.9 mmol/L (3.5-5.1); Sodium 138 mmol/L (135-145); Total Bilirubin 0.4 mg/dl (0.2-1.3); Total Protein 7.2 g/dl (6.3-8.2); eGFR > 60.00
== END ==
LOC: OIDL 12:19
PROVIDERS: ATTENDING PHYSICIAN Internal Medicine Hematology & Oncology
DX: C50.411 Malignant neoplasm of upper-outer quadrant of right female breast (principal); Z85.850 Personal history of malignant neoplasm of thyroid
CPT/HCPCS: 80053; 85025

== ENCOUNTER 2024-05-11 13:53 | Outpatient (RCR) | payer MEDICARE, OTHER, SELFPAY | END 2024-05-11 23:59 | disposition home or self-care (01) | LOC: RPT 13:53 | PROVIDERS: ATTENDING PHYSICIAN Nurse Practitioner Adult Health; FAMILY PHYSICIAN Physician Assistant Medical | DX: M21.371 Foot drop, right foot (principal); Z73.6 Limitation of activities due to disability; R26.2 Difficulty in walking, not elsewhere classified; M62.81 Muscle weakness (generalized) | CPT/HCPCS: 97014; 97110; 97116; 97162 ==

== ENCOUNTER → 2024-05-14 17:21 | Outpatient (REF) | payer MEDICARE, OTHER, SELFPAY | LOC: MRI 3T 17:21 | PROVIDERS: ATTENDING PHYSICIAN Psychiatry & Neurology Neurology; FAMILY PHYSICIAN Physician Assistant Medical | DX: R42 Dizziness and giddiness (principal); A88.1 Epidemic vertigo | CPT/HCPCS: 70553; A9575 ==

== ENCOUNTER → 2024-05-24 14:04 | Outpatient (REF) | payer MEDICARE, OTHER, SELFPAY ==
[2024-05-24 14:06] LABS: % Basophils 0.4 % (0-2); % Eosinophils 1.7 % (0-6); % Lymphocytes 12.4 % (20.5-51.1); % Monocytes 7.7 % (1.7-9.3); % Neutrophils 77.8 % (42.2-75.2); Absolute Eosinophils 0.1 10^3/uL (0-0.7); Absolute Lymphocytes 0.6 10^3/uL (1.2-3.4); Absolute Monocytes 0.4 10^3/uL (0.1-0.6); Hematocrit 39.4 % (37.0-47.0); Hemoglobin 12.9 g/dL (12.0-16.0); Mean Corp Hgb Conc. 32.7 g/dL (33.0-37.0); Mean Corpuscular Hgb 28.2 pg (27.0-31.0); Mean Corpuscular Volume 86.2 fL (81.0-99.0); Mean Platelet Volume 9.1 fL (7.4-10.4); Platelet Count 259 10^3/uL (130-400); Red Blood Cell Count 4.57 10^6/uL (4.20-5.40); Red Cell Dist. Width 14.8 % (11.5-14.5); White Blood Cell Count 5.2 10^3/uL (4.8-10.8)
[2024-05-24 15:01] LABS: ALT (SGPT) 10 U/L (0-35); AST (SGOT) 27 U/L (14-36); Albumin 4.8 g/dl (3.5-5.0); Alkaline Phosphatase 100 U/L (38-126); Blood Urea Nitrogen 27 mg/dl (7-17); Calcium 9.7 mg/dl (8.4-10.2); Carbon Dioxide 31 mmol/L (22-30); Chloride 96 mmol/L (98-107); Glucose 94 mg/dl (70-99); Potassium 4.4 mmol/L (3.5-5.1); Sodium 135 mmol/L (135-145); Total Bilirubin 0.4 mg/dl (0.2-1.3); eGFR > 60.00
== END ==
LOC: OIDL 14:04
PROVIDERS: ATTENDING PHYSICIAN Internal Medicine Hematology & Oncology
DX: C50.411 Malignant neoplasm of upper-outer quadrant of right female breast (principal)
CPT/HCPCS: 80053; 85025

== ENCOUNTER → 2024-05-24 15:00 | Outpatient (REF) | payer MEDICARE, OTHER, SELFPAY | LOC: MRI 3T 15:00 | PROVIDERS: ATTENDING PHYSICIAN Urology; FAMILY PHYSICIAN Physician Assistant Medical | DX: N12 Tubulo-interstitial nephritis, not specified as acute or chronic (principal); N28.9 Disorder of kidney and ureter, unspecified | CPT/HCPCS: 74183; A9575 ==

== ENCOUNTER → 2024-07-02 15:00 | Outpatient (REF) | payer MEDICARE, OTHER, SELFPAY ==
[2024-07-02 09:50] LABS: % Basophils 0.7 % (0-2); % Eosinophils 2.7 % (0-6); % Lymphocytes 15.3 % (20.5-51.1); % Monocytes 10.1 % (1.7-9.3); % Neutrophils 71.2 % (42.2-75.2); Absolute Eosinophils 0.1 10^3/uL (0-0.7); Absolute Lymphocytes 0.7 10^3/uL (1.2-3.4); Absolute Monocytes 0.5 10^3/uL (0.1-0.6); Absolute Neutrophils 3.2 10^3/uL (1.4-6.5); Hematocrit 37.7 % (37.0-47.0); Hemoglobin 12.2 g/dL (12.0-16.0); Mean Corp Hgb Conc. 32.4 g/dL (33.0-37.0); Mean Corpuscular Hgb 27.9 pg (27.0-31.0); Mean Corpuscular Volume 86.3 fL (81.0-99.0); Mean Platelet Volume 9.1 fL (7.4-10.4); Platelet Count 230 10^3/uL (130-400); Red Blood Cell Count 4.37 10^6/uL (4.20-5.40); Red Cell Dist. Width 15.5 % (11.5-14.5); White Blood Cell Count 4.5 10^3/uL (4.8-10.8)
[2024-07-02 10:45] LABS: ALT (SGPT) < 10 U/L (0-35); AST (SGOT) 26 U/L (14-36); Albumin 4.2 g/dl (3.5-5.0); Alkaline Phosphatase 93 U/L (38-126); Blood Urea Nitrogen 27 mg/dl (7-17); Calcium 9.4 mg/dl (8.4-10.2); Carbon Dioxide 33 mmol/L (22-30); Chloride 99 mmol/L (98-107); Glucose 87 mg/dl (70-99); Potassium 4.3 mmol/L (3.5-5.1); Sodium 136 mmol/L (135-145); Total Bilirubin 0.6 mg/dl (0.2-1.3); Total Protein 7.3 g/dl (6.3-8.2); eGFR > 60.00
== END ==
LOC: OIDL 15:00
PROVIDERS: ATTENDING PHYSICIAN Nurse Practitioner Adult Health
DX: C50.411 Malignant neoplasm of upper-outer quadrant of right female breast (principal)
CPT/HCPCS: 80053; 85025

== ENCOUNTER → 2024-07-13 14:47 | Outpatient (REF) | payer MEDICARE, OTHER, SELFPAY | LOC: WDC 14:47 | PROVIDERS: ATTENDING PHYSICIAN Nurse Practitioner Adult Health; FAMILY PHYSICIAN Physician Assistant Medical | DX: Z12.31 Encounter for screening mammogram for malignant neoplasm of breast (principal) | CPT/HCPCS: 77063; 77067 ==

== ENCOUNTER → 2024-07-14 08:40 | Outpatient (REF) | payer MEDICARE, OTHER, SELFPAY | LOC: RAD 08:40 | PROVIDERS: ATTENDING PHYSICIAN Nurse Practitioner Adult Health; FAMILY PHYSICIAN Physician Assistant Medical; OTHER PHYSICIAN Internal Medicine Cardiovascular Disease; REFERRING PHYSICIAN Internal Medicine Hematology & Oncology | DX: I10 Essential (primary) hypertension (principal); E78.5 Hyperlipidemia, unspecified; I36.1 Nonrheumatic tricuspid (valve) insufficiency; I34.0 Nonrheumatic mitral (valve) insufficiency; Z78.0 Asymptomatic menopausal state | CPT/HCPCS: 77080; 93306; 93356 ==

== ENCOUNTER → 2024-07-23 08:58 | Outpatient (REF) | payer MEDICARE, OTHER, SELFPAY ==
[2024-07-23 09:58] LABS: % Basophils 0.8 % (0-2); % Eosinophils 3.9 % (0-6); % Immature Granulocytes 0.4 % (0-0.5); % Monocytes 11.4 % (1.7-9.3); % Neutrophils 74.5 % (42.2-75.2); Absolute Eosinophils 0.2 10^3/uL (0-0.7); Absolute Lymphocytes 0.5 10^3/uL (1.2-3.4); Absolute Monocytes 0.6 10^3/uL (0.1-0.6); Absolute Neutrophils 3.8 10^3/uL (1.4-6.5); Hematocrit 40.2 % (37.0-47.0); Hemoglobin 12.9 g/dL (12.0-16.0); Mean Corp Hgb Conc. 32.1 g/dL (33.0-37.0); Mean Corpuscular Hgb 28.1 pg (27.0-31.0); Mean Corpuscular Volume 87.6 fL (81.0-99.0); Mean Platelet Volume 9.7 fL (7.4-10.4); Nucleated Red Blood Cells % 0 %; Platelet Count 217 10^3/uL (130-400); Red Blood Cell Count 4.59 10^6/uL (4.20-5.40); Red Cell Dist. Width 15.7 % (11.5-14.5); White Blood Cell Count 5.1 10^3/uL (4.8-10.8)
[2024-07-23 10:36] LABS: ALT (SGPT) < 10 U/L (0-35); AST (SGOT) 22 U/L (14-36); Albumin 4.3 g/dl (3.5-5.0); Alkaline Phosphatase 88 U/L (38-126); Blood Urea Nitrogen 30 mg/dl (7-17); Calcium 9.5 mg/dl (8.4-10.2); Carbon Dioxide 31 mmol/L (22-30); Chloride 98 mmol/L (98-107); Glucose 94 mg/dl (70-99); Potassium 4.4 mmol/L (3.5-5.1); Sodium 137 mmol/L (135-145); Total Bilirubin 0.5 mg/dl (0.2-1.3); Total Protein 7.5 g/dl (6.3-8.2); eGFR > 60.00
[2024-07-23 10:38] LABS: Urine Albumin 1+ (Neg - Trace); Urine Bilirubin Negative (Negative); Urine Character Clear (Clear); Urine Color Yellow; Urine Glucose Negative (Negative); Urine Ketone Negative (Negative); Urine Leukocyte 2+ (Negative); Urine Nitrite Negative (Negative); Urine Occult Blood 4+ (Negative); Urine Specific Gravity 1.015 (<1.030); Urine Urobilinogen Negative (Neg - 1+)
[2024-07-23 10:55] LABS: Urine Bacteria Few (Negative); Urine Squamous Cell 16-20 /LPF (Few)
== END ==
LOC: REG 08:58
PROVIDERS: ATTENDING PHYSICIAN Internal Medicine Hematology & Oncology; FAMILY PHYSICIAN Physician Assistant Medical; REFERRING PHYSICIAN Nurse Practitioner Adult Health
DX: C50.411 Malignant neoplasm of upper-outer quadrant of right female breast (principal); Z85.850 Personal history of malignant neoplasm of thyroid; R19.7 Diarrhea, unspecified; A04.72 Enterocolitis due to Clostridium difficile, not specified as recurrent; N39.0 Urinary tract infection, site not specified; M21.371 Foot drop, right foot; Z51.81 Encounter for therapeutic drug level monitoring; M85.80 Other specified disorders of bone density and structure, unspecified site; Z78.0 Asymptomatic menopausal state; Z13.820 Encounter for screening for osteoporosis
CPT/HCPCS: 36415; 80053; 81003; 81015; 83735; 85025; 87086

== ENCOUNTER → 2024-08-13 11:11 | Outpatient (REF) | payer MEDICARE, OTHER, SELFPAY ==
[2024-08-13 12:00] LABS: % Basophils 0.8 % (0-2); % Eosinophils 1.8 % (0-6); % Immature Granulocytes 0.2 % (0-0.5); % Lymphocytes 12.8 % (20.5-51.1); % Monocytes 7.1 % (1.7-9.3); % Neutrophils 77.3 % (42.2-75.2); Absolute Basophils 0.1 10^3/uL (0-0.2); Absolute Eosinophils 0.1 10^3/uL (0-0.7); Absolute Lymphocytes 0.8 10^3/uL (1.2-3.4); Absolute Monocytes 0.4 10^3/uL (0.1-0.6); Absolute Neutrophils 4.6 10^3/uL (1.4-6.5); Hematocrit 39.3 % (37.0-47.0); Hemoglobin 12.8 g/dL (12.0-16.0); Mean Corp Hgb Conc. 32.6 g/dL (33.0-37.0); Mean Corpuscular Hgb 27.8 pg (27.0-31.0); Mean Corpuscular Volume 85.2 fL (81.0-99.0); Mean Platelet Volume 9.5 fL (7.4-10.4); Nucleated Red Blood Cells % 0 %; Platelet Count 251 10^3/uL (130-400); Red Blood Cell Count 4.61 10^6/uL (4.20-5.40); Red Cell Dist. Width 15.3 % (11.5-14.5)
[2024-08-13 13:04] LABS: ALT (SGPT) < 10 U/L (0-35); AST (SGOT) 22 U/L (14-36); Albumin 4.7 g/dl (3.5-5.0); Alkaline Phosphatase 97 U/L (38-126); Blood Urea Nitrogen 29 mg/dl (7-17); Calcium 9.7 mg/dl (8.4-10.2); Carbon Dioxide 32 mmol/L (22-30); Chloride 99 mmol/L (98-107); Glucose 109 mg/dl (70-99); HDL Cholesterol 93 mg/dl; LDL Cholesterol, Calculated 94 mg/dl; Magnesium 2.1 mg/dl (1.6-2.3); Potassium 4.5 mmol/L (3.5-5.1); Sodium 140 mmol/L (135-145); Total Bilirubin 0.6 mg/dl (0.2-1.3); Total Cholesterol 199 mg/dl (50-199); Total Protein 7.9 g/dl (6.3-8.2); Triglyceride 63 mg/dl (10-149); Very Low Density Lipoprotein 12 mg/dl (0-30); eGFR > 60.00
== END ==
LOC: REG 11:11
PROVIDERS: ATTENDING PHYSICIAN Internal Medicine Hematology & Oncology; FAMILY PHYSICIAN Physician Assistant Medical; OTHER PHYSICIAN Internal Medicine Cardiovascular Disease
DX: E78.5 Hyperlipidemia, unspecified (principal); C50.411 Malignant neoplasm of upper-outer quadrant of right female breast; Z85.850 Personal history of malignant neoplasm of thyroid; R19.7 Diarrhea, unspecified; A04.72 Enterocolitis due to Clostridium difficile, not specified as recurrent; N39.0 Urinary tract infection, site not specified; M21.371 Foot drop, right foot; Z51.81 Encounter for therapeutic drug level monitoring; M85.80 Other specified disorders of bone density and structure, unspecified site
CPT/HCPCS: 36415; 80053; 80061; 83735; 85025

== ENCOUNTER → 2024-08-18 07:51 | Outpatient (REF) | payer MEDICARE, OTHER, SELFPAY | LOC: RAD 07:51 | PROVIDERS: ATTENDING PHYSICIAN Internal Medicine Cardiovascular Disease; FAMILY PHYSICIAN Physician Assistant Medical | DX: I65.23 Occlusion and stenosis of bilateral carotid arteries (principal); I63.81 Other cerebral infarction due to occlusion or stenosis of small artery | CPT/HCPCS: 93880 ==

== ENCOUNTER 2024-09-06 10:52 | Emergency (ER) | payer MEDICARE, OTHER, SELFPAY ==
[2024-09-06 11:04] VITALS: BP 144/87
[2024-09-06 11:37] LABS: % Basophils 0.4 % (0-2); % Eosinophils 0.4 % (0-6); % Immature Granulocytes 0.1 % (0-0.5); % Lymphocytes 6.3 % (20.5-51.1); % Monocytes 9.1 % (1.7-9.3); % Neutrophils 83.7 % (42.2-75.2); Absolute Lymphocytes 0.5 10^3/uL (1.2-3.4); Absolute Monocytes 0.8 10^3/uL (0.1-0.6); Absolute Neutrophils 6.9 10^3/uL (1.4-6.5); Hematocrit 38.3 % (37.0-47.0); Hemoglobin 12.9 g/dL (12.0-16.0); Mean Corp Hgb Conc. 33.7 g/dL (33.0-37.0); Mean Corpuscular Hgb 28.4 pg (27.0-31.0); Mean Corpuscular Volume 84.2 fL (81.0-99.0); Mean Platelet Volume 9.4 fL (7.4-10.4); Nucleated Red Blood Cells % 0 %; Platelet Count 221 10^3/uL (130-400); Red Blood Cell Count 4.55 10^6/uL (4.20-5.40); Red Cell Dist. Width 15.9 % (11.5-14.5); White Blood Cell Count 8.2 10^3/uL (4.8-10.8)
[2024-09-06 12:22] LABS: ALT (SGPT) < 10 U/L (0-35); AST (SGOT) 25 U/L (14-36); Albumin 4.7 g/dl (3.5-5.0); Alkaline Phosphatase 108 U/L (38-126); Blood Urea Nitrogen 20 mg/dl (7-17); Calcium 9.3 mg/dl (8.4-10.2); Carbon Dioxide 25 mmol/L (22-30); Chloride 98 mmol/L (98-107); Glucose 133 mg/dl (70-99); Potassium 4.3 mmol/L (3.5-5.1); Sodium 137 mmol/L (135-145); Total Bilirubin 1.1 mg/dl (0.2-1.3); Total Protein 7.8 g/dl (6.3-8.2); eGFR > 60.00
[2024-09-06 12:28] VITALS: BP 141/82
[2024-09-06 12:32] LABS: Troponin I < 0.012 ng/ml
[2024-09-06 12:36] VITALS: BMI 18.4
[2024-09-06 13:00] VITALS: BP 127/107
--- NOTE | 2024-09-06 13:16 | ED.GENMED ---
History of Present Illness
General
Chief Complaint: Cough
Source: patient
Exam Limitations: none
Time Seen by Provider: 09/06/24 12:30
Nursing documentation reviewed up to this point in time: agreed with except (pt denies abdominal pain c/o of jennifer terry cp last night during sleep )
History of Present Illness
History of Present Illness:
69-year-old female with history Parkinson's hypertension hyperlipidemia presents to the ER for evaluation. patient reports she has had a cough for the past 6 days that has not improved. She does have a history of Parkinson's and therefore cannot
take certain medications to help her with the cough. She denies any fever or chills.
In addition she reports she was woken up in the middle the night (3 am ) with a sharp episode of midsternal chest pain. Triage note documents it is mid upper abdominal pain however patient complains of chest pain not abdominal pain. This lasted
for about 1 hour it was sharp however it has since resolved.
She denies any actual shortness of breath but she does complain of feeling chest tightness when coughing.
Past History
Past History
ED Past Medical History: Cancer, HTN, Hypercholesterolemia, Hypothyroidism and Other (Breast cancer, thyroid cancer, Parkinson's)
ED Past Surgical History: Gynecological and Other
Social History
Tobacco: Non-smoker
Alcohol: None
Drug: None
Personal:
Review of Systems
Review of Systems
Allergies reviewed?: Yes
All Other Systems: ROS reviewed and negative except as documented in HPI and ROS
Constitutional: Reports no symptoms; Denies fever, fatigue or chills
EENT: Reports no symptoms
Respiratory: Reports cough
Cardiac: Reports chest pain (Had an episode of sharp midsternal chest pain around 3 am lasting 1 hour)
ABD/GI: Reports no symptoms; Denies abdominal pain, nausea or vomiting
: Reports no symptoms
Musculoskeletal: Reports no symptoms
Skin: Reports no symptoms
Neurological: Reports no symptoms
Psychiatric: Reports no symptoms
Phy Exam
General Physical Exam
General Presentation: no apparent distress
General age: appears stated age
General Skin: warm and dry
General Habitus: elderly
General Mental: alert
General Hydration: appears well hydrated
Cardiovascular Exam
Cardiovascular Exam: tachycardia
Pulmonary Exam
Pulmonary Exam: no respiratory distress and other (+ mild exp wheezing )
Neurological Exam
Neurological Exam: alert and oriented x3
Musculoskeletal Exam
Musculoskeletal Exam: full ROM
Skin Exam
Skin Exam: normal color and warm/dry
Psychiatric Exam
Psychiatric Exam: normal mood/affect
Course
Orders/Labs/Results
Orders:
Orders
09/06/24 11:08
EKG [Electrocardiogram (*1)] Urgent
Reason for Study: Chest Pain
CR Chest - 2 Views Urgent
Comment:
Reason For Exam: respiratory distress
09/06/24 11:18
Complete Blood Count/With Diff Urgent
Comprehensive Metabolic Panel Urgent
Troponin I Urgent
09/06/24 13:22
Albuterol Nebs [Ventolin Nebules] 2.5 mg INH R NOW STA
Dexamethasone Sod Phosphate [Decadron] 10 mg IV NOW STA
09/06/24 14:54
Doxycycline [Vibramycin] 100 mg PO NOW STA
09/06/24 14:55
Amoxicillin 875 mg/Clav 125 mg [Augmentin 875 mg/125 mg] 1 tablet PO NOW STA
Abnormal Lab Results
09/06/24
11:18
RDW 15.9 H %
(11.5-14.5)
Absolute Neuts (auto) 6.9 H 10^3/uL
(1.4-6.5)
Absolute Lymphs (auto) 0.5 L 10^3/uL
(1.2-3.4)
Absolute Monos (auto) 0.8 H 10^3/uL
(0.1-0.6)
Neutrophils % 83.7 H %
(42.2-75.2)
Lymphocytes % 6.3 L %
(20.5-51.1)
BUN 20 H mg/dl
(7-17)
Glucose 133 H mg/dl
(70-99)
09/06/24 11:18
09/06/24 11:18
Vital Signs
Pulse: 108
Resp Rate: 18
Initial and Last Documented VS:
Initial Vital Signs
Temp Pulse Resp BP Pulse Ox
98.4 F 120 16 144/87 95
09/06/24 11:04 09/06/24 11:04 09/06/24 11:04 09/06/24 11:04 09/06/24 11:04
Last Documented Vital Signs
Temp Pulse Resp BP Pulse Ox
98.4 F 108 18 127/77 93
09/06/24 11:04 09/06/24 15:55 09/06/24 15:55 09/06/24 15:00 09/06/24 15:00
MDM/Problems Addressed
Differential Diagnosis Includes:
not limited to: bronchithis, URI , pnuemonia
MDM/Problems Addressed:
Patient is a 69-year-old female with cough for the past 6 days not associate with fever. Patient denies any actual shortness of breath. She presented because of persistent cough which has not improved. In addition she was awoken by midsternal
chest pain around 3 AM. No cardiac history. troponin negative. Sinus tach with a heart rate of 109 on EKG no other acute findings.
Patient with obvious cough will order a chest xray and give a neb . no chest pain now.
1450: Chest x-ray does show a right middle lobe pneumonia, patient is well-appearing feels better after treatment. Pulse ox between 93 and 95%. Heart rate around 108 after albuterol neb (prior to discharge) . oh patient has no chest pain(had
episode in the middle of the night for 1 hour) no cardiac history .no acute EKG findings and negative cardiac troponin .
Possibly muscular. Patient feels well to go home and is nontoxic appearing will DC with an inhaler and antibiotics Doxy and augmentin). Discussed close outpatient follow-up with pcp. strict return precautions reviewed.
As documented I noted heart rate to be 108 and pulse ox to be 93-95% prior to discharge . This was not updated and entered by the nurse.
Chronic conditions affecting care:
parkinsons, htn, hyperlipidemia
*Radiology
Radiology exam reviewed: radiology read reviewed
*Pulse Oximetry
Patient hypoxic: no (pulse ox 93-95 % RA denies sob )
*EKG
Heart Rate: 109
Rate: tachycardiac
Rhythm: sinus
Ischemia: no ischemia
*Critical Care Note
Total Time (30-74mins, 75-104mins- exclusive of procedures): Not Applicable
ED Attending Note
-
Portions of this chart may have been created with voice recognition software.� Occasional wrong word or��sound alike� substitutions may have occurred due to the inherent limitations of voice recognition software.
Discharge Plan
Departure
Patient Disposition: Home (Routine Discharge)
Date of Disposition: 09/06/24
Time of Disposition: 14:55
Patient with high blood pressure during this ER visit?: Yes
Condition: Fair
Covid-19: Not Applicable
Discharge Problem:
Pneumonia
Instructions: Pneumonia, Adult (DC), BLOOD PRESSURE
Prescriptions:
New
doxycycline hyclate 100 mg capsule
100 mg PO BID Qty: 10 0RF
amoxicillin-pot clavulanate 875-125 mg tablet
1 tab PO BID Qty: 14 0RF
albuterol sulfate 90 mcg/actuation HFA aerosol inhaler
2 inh inhalation Q6H PRN (Reason: shortness of breath or wheezing) Qty: 6.7 0RF
No Action
simvastatin 40 mg Tablet
40 mg PO HS
rasagiline 1 mg Tablet
1 mg PO HS
Rytary 36.25-145 mg Capsule, Extended Release
1 cap PO TID
losartan 25 mg Tablet
25 mg PO HS
levothyroxine [Synthroid] 88 mcg tablet
75 mcg PO DAILY
Referrals:
Nick Rosario MD [Active] -
Abigail Hernández PA-C [Family Provider] -
Activity Restrictions/Additional Instructions:
As discussed your x-ray does show pneumonia. You were given the first doses of antibiotics here in the ER.
Prescriptions were sent to your pharmacy to take as directed. In addition please use your inhaler. Follow-up closely with your family doctor in the next several days for reevaluation
return if any worsening of symptoms including increasing shortness of breath or any further concerns.
As discussed it is recommended that you have a repeat chest x-ray to ensure resolution of pneumonia please discuss this with your family doctor.
Stay well hydrated.
In addition please follow-up with bus monitor.
Interventions
Interventions:
*Risk Screen - Suicide Last Done: 09/06/24 11:04
*General Assessment Last Done: 09/06/24 12:37
*Neglect/Abuse Screening Last Done: 09/06/24 11:04
*ED- Fall Risk Assessment Last Done: 09/06/24 12:37
*ED COVID-19 Vaccine History Last Done: 09/06/24 12:37
*Nursing Disposition Last Done: 09/06/24 15:46
ED- Pulmonary Assessment Last Done: 09/06/24 12:38
Discharge Date and Time
Discharge Date/Time: 09/06/24 15:46
Print Language: TURKMEN
[2024-09-06] MEDS: DECADRON 10 MG IV (13:42)
[2024-09-06] MEDS: VENTOLIN NEBULES 2.5 MG INH (13:42)
[2024-09-06 14:03] VITALS: BP 149/90
[2024-09-06 14:58] VITALS: BP 132/76
[2024-09-06 15:00] VITALS: BP 127/77
[2024-09-06] MEDS: AUGMENTIN 875 MG/125 MG 1 TABLET PO (15:23)
[2024-09-06] MEDS: VIBRAMYCIN 100 MG PO (15:25)
== END 2024-09-06 15:46 | disposition home or self-care (01) ==
LOC: EMR 10:52
PROVIDERS: Emergency Medicine; EMERGENCY PHYSICIAN Student in an Organized Health Care Education/Training Program; FAMILY PHYSICIAN Physician Assistant Medical
DX: J18.9 Pneumonia, unspecified organism (principal); E03.9 Hypothyroidism, unspecified; E78.00 Pure hypercholesterolemia, unspecified; I10 Essential (primary) hypertension; G20.A1 Parkinson's disease without dyskinesia, without mention of fluctuations; Z85.3 Personal history of malignant neoplasm of breast; Z85.850 Personal history of malignant neoplasm of thyroid
CPT/HCPCS: 99285; 94640; 96374; 71046; 80053; 84484; 85025; 93005

== ENCOUNTER → 2024-09-28 16:24 | Outpatient (REF) | payer MEDICARE, OTHER, SELFPAY | LOC: RAD 16:24 | PROVIDERS: ATTENDING PHYSICIAN Internal Medicine | DX: J18.9 Pneumonia, unspecified organism (principal) | CPT/HCPCS: 71046 ==

== ENCOUNTER 2024-10-08 05:57 | Observation (INO) | payer MEDICARE, OTHER, SELFPAY ==
[2024-10-07 20:32] VITALS: BP 146/98
[2024-10-07 21:07] LABS: % Basophils 0.4 % (0-2); % Eosinophils 1.3 % (0-6); % Immature Granulocytes 0.2 % (0-0.5); % Lymphocytes 13.4 % (20.5-51.1); % Neutrophils 78.7 % (42.2-75.2); Absolute Eosinophils 0.1 10^3/uL (0-0.7); Absolute Lymphocytes 1.3 10^3/uL (1.2-3.4); Absolute Monocytes 0.6 10^3/uL (0.1-0.6); Absolute Neutrophils 7.5 10^3/uL (1.4-6.5); Hematocrit 41.8 % (37.0-47.0); Mean Corp Hgb Conc. 33.5 g/dL (33.0-37.0); Mean Corpuscular Hgb 28.2 pg (27.0-31.0); Mean Corpuscular Volume 84.3 fL (81.0-99.0); Mean Platelet Volume 8.8 fL (7.4-10.4); Nucleated Red Blood Cells % 0 %; Platelet Count 384 10^3/uL (130-400); Red Blood Cell Count 4.96 10^6/uL (4.20-5.40); Red Cell Dist. Width 15.9 % (11.5-14.5); White Blood Cell Count 9.5 10^3/uL (4.8-10.8)
[2024-10-07 21:10] LABS: Urine Albumin 1+ (Neg - Trace); Urine Bilirubin Negative (Negative); Urine Character Clear (Clear); Urine Color Yellow; Urine Glucose 1+ (Negative); Urine Ketone 1+ (Negative); Urine Leukocyte 1+ (Negative); Urine Nitrite Negative (Negative); Urine Occult Blood 4+ (Negative); Urine Urobilinogen Negative (Neg - 1+)
[2024-10-07 21:23] LABS: COVID-19 Antigen Negative (Negative)
[2024-10-07 21:25] LABS: ALT (SGPT) 11 U/L (0-35); AST (SGOT) 28 U/L (14-36); Albumin 4.7 g/dl (3.5-5.0); Alkaline Phosphatase 89 U/L (38-126); Blood Urea Nitrogen 43 mg/dl (7-17); Calcium 9.5 mg/dl (8.4-10.2); Carbon Dioxide 30 mmol/L (22-30); Chloride 100 mmol/L (98-107); Glucose 137 mg/dl (70-99); Potassium 4.1 mmol/L (3.5-5.1); Sodium 138 mmol/L (135-145); Total Bilirubin 0.6 mg/dl (0.2-1.3); eGFR > 60.00
[2024-10-07 21:26] LABS: Urine White Cell 21-25 /HPF (0-5)
[2024-10-07 21:27] LABS: Urine Bacteria Few (Negative)
[2024-10-07 22:41] VITALS: BP 162/98
[2024-10-07 22:44] VITALS: BMI 19.4
[2024-10-07 23:00] VITALS: BP 149/97
[2024-10-08] VITALS (9 sets, daily range): BP systolic 114–170; BP diastolic 78–108; PULSE 85–116; O2SAT 99; BMI 18.0
[2024-10-08] MEDS: NSS 1000 IV (01:27)
--- NOTE | 2024-10-08 03:00 | ED.GENMED ---
History of Present Illness
General
Chief Complaint: Weakness
Time Seen by Provider: 10/08/24 00:21
History of Present Illness
History of Present Illness:
69-year-old female history of Parkinson's presenting to the emergency department for generalized weakness and fatigue. Patient reports symptoms for the past 2 days. She notes that she has had to crawl around her house secondary to the weakness,
has been shuffling. Also reports some dizziness. Has had some intermittent abdominal pain, denies any abdominal pain presently. Denies any vomiting. Does feel dehydrated. Denies any diarrhea. Denies dysuria. Denies fever or known sick
contacts. Denies chest pain or difficulty breathing. Does note recent admission for pneumonia, however cough is overall improved. She was placed on a steroid, however discontinued steroid yesterday because she was unsure if that was contributing
to her symptoms.
Past History
Past History
ED Past Medical History: Cancer, HTN, Hypercholesterolemia, Hypothyroidism and Other (Breast cancer, thyroid cancer, Parkinson's)
ED Past Surgical History: Gynecological and Other
Social History
Tobacco: Non-smoker
Alcohol: None
Drug: None
Personal:
Phy Exam
Physical Exam
Physical Exam:
General: Well-appearing, no clinical signs of dehydration, nontoxic and in no acute distress
HEENT: protecting airway
Neck: appears supple
CV: Normal heart rate, regular rhythm
Resp: No accessory muscle use, no increased work of breathing, lungs clear to auscultation bilaterally
Abd: Soft and non-distended, mild tenderness to the right upper quadrant without rebound or guarding
Extremities: No deformities, no swelling, no erythema
Neuro: alert, no focal neurologic deficit
: deferred
Rectal: deferred
Psych: Normal affect
Skin: Intact
Course
Orders/Labs/Results
Orders:
Orders
10/07/24 20:37
Electrocardiogram (*1) Urgent
Reason for Study: Fatigue / Weakness
EKG- Treatment ONCE
10/07/24 20:48
Urinalysis Reflex To Culture Urgent
Date Specimen was Collected: 10/07/24
Time Specimen was Collected: 20:38
Urine Microscopic Reflex Cult Urgent
Urine Culture Urgent
ИРИНА Source: U
Specimen Description:
Date Specimen was Collected: 10/07/24
Time Specimen was Collected: 20:38
10/07/24 20:52
COVID-19 Antigen Urgent
Source: Nasal Swab
Complete Blood Count/With Diff Urgent
Comprehensive Metabolic Panel Urgent
Influenza A+B Rapid Molecular Urgent
ИРИНА Source: Nasal Swab
Specimen Description:
10/08/24 01:17
0.9% Sodium Chloride 1000 ml [Nss] 1,000 ml IV BOLUS
US Abdomen Complete/Upper Urgent
Comment:
Reason For Exam: RUQ pain
10/08/24 03:00
Cefepime HCl [Maxipime] 2,000 mg IV NOW STA
Abnormal Lab Results
10/07/24 10/07/24
20:48 20:52
RDW 15.9 H %
(11.5-14.5)
Absolute Neuts (auto) 7.5 H 10^3/uL
(1.4-6.5)
Neutrophils % 78.7 H %
(42.2-75.2)
Lymphocytes % 13.4 L %
(20.5-51.1)
BUN 43 H mg/dl
(7-17)
Glucose 137 H mg/dl
(70-99)
Urine Ketones 1+ A
(Negative)
Ur Occult Blood Reflex 4+ A
(Negative)
Leukocyte Esterase Rfl 1+ A
(Negative)
Urine RBC 3-6 A /HPF
(0-2)
Urine WBC (Reflex) 21-25 A /HPF
(0-5)
Urine Bacteria (Reflex) Few A
(Negative)
Urine Glucose 1+ A
(Negative)
Urine Albumin (Reflex) 1+ A
(Neg - Trace)
10/07/24 20:52
10/07/24 20:52
Vital Signs
Initial and Last Documented VS:
Initial Vital Signs
Temp Pulse Resp BP Pulse Ox
97.3 F 114 18 146/98 99
10/07/24 20:32 10/07/24 20:32 10/07/24 20:32 10/07/24 20:32 10/07/24 20:32
Last Documented Vital Signs
Temp Pulse Resp BP Pulse Ox
97.3 F 114 18 165/94 100
10/07/24 20:32 10/07/24 20:32 10/07/24 20:32 10/08/24 01:00 10/08/24 02:05
MDM/Problems Addressed
MDM/Problems Addressed:
69-year-old female with history of Parkinson's presenting for generalized weakness and fatigue for the past 2 days. Vital signs on arrival significant for tachycardia and mild hypertension.
On exam patient is resting comfortably, no acute distress. Arrives with daughter. Does have some dry mucous membranes, patient ultimately concerned for dehydration. She is afebrile, nontoxic. Does note that she recently had pneumonia, however
cough has been improving. Without present concern for pneumonia. Laboratory analysis obtained prior to my assessment, unremarkable. With the exception of urinalysis appears consistent with UTI. Patient denying any urinary symptoms, however
patient and daughter report that patient was admitted for encephalopathy from urinary tract infection which presented only as confusion. Patient may be starting with urinary tract infection symptoms. Will hand rounder IV fluids. Additionally exam
some mild tenderness to the right upper quadrant without rebound or guarding. Will screen with ultrasound, notes intermittent pain for the past several weeks.
03:10- Ultrasound without acute abnormality. Continue to suspect source of patient's symptoms from urinary tract infection. Urine culture sent. Will start on cefepime. Patient ultimately reports she feels too weak to go home, has been crawling
around her house, shaking with a shuffling gait. Will plan for admission
*EKG
Interpreted by ED Provider?: Yes
EKG Intrepretation Date: 10/08/24
EKG Intrepretation Time: 03:08
Interpretation: normal
Comparison EKG: no changes (09/06/24)
Heart Rate: 100
Rate: normal
Rhythm: sinus
[place]: normal axis
Interval: normal interval
QRS Pattern: normal QRS
Ischemia: non-specific ST changes
*Critical Care Note
Total Time (30-74mins, 75-104mins- exclusive of procedures): Not Applicable
ED Attending Note
-
Portions of this chart may have been created with voice recognition software.� Occasional wrong word or��sound alike� substitutions may have occurred due to the inherent limitations of voice recognition software.
Discharge Plan
Departure
Prescriptions:
No Action
simvastatin 40 mg Tablet
40 mg PO HS
rasagiline 1 mg Tablet
1 mg PO HS
Rytary 36.25-145 mg Capsule, Extended Release
1 cap PO TID
losartan 25 mg Tablet
25 mg PO HS
levothyroxine [Synthroid] 88 mcg tablet
75 mcg PO DAILY
doxycycline hyclate 100 mg capsule
100 mg PO BID Qty: 10 0RF
amoxicillin-pot clavulanate 875-125 mg tablet
1 tab PO BID Qty: 14 0RF
albuterol sulfate 90 mcg/actuation HFA aerosol inhaler
2 inh inhalation Q6H PRN (Reason: shortness of breath or wheezing) Qty: 6.7 0RF
Referrals:
Abigail Hernández PA-C [Family Provider] -
Interventions
Interventions:
*Risk Screen - Suicide Last Done: 10/07/24 20:32
*General Assessment Last Done: 10/07/24 20:32
*Neglect/Abuse Screening Last Done: 10/07/24 22:44
*ED- Fall Risk Assessment Last Done: 10/07/24 22:44
*ED COVID-19 Vaccine History Last Done: 10/07/24 20:32
ED- Cardiac Assessment Last Done: 10/07/24 22:44
ED- Neurological Assessment Last Done: 10/07/24 22:44
ED- Pulmonary Assessment Last Done: 10/07/24 22:44
Discharge Date and Time
Print Language: CHILEAN
[2024-10-08] MEDS: MAXIPIME 2000 MG IV (03:08)
--- NOTE | 2024-10-08 05:36 | HPS.HSE ---
Family Physician
-
Family Physician: Abigail Hernández PA-C
Chief Complaint
-
Weakness
History of Present Illness
Patient is a 69y F with PMH significant for breast cancer and Parkinson's disease who presents to ED complaining of weakness / ambulatory dysfunction. Patient states that she has been more unsteady and weak for several weeks now. More recently,
she feels lightheaded when standing and lowers herself to the floor to prevent falling / passing out. She denies any actual fall / injury / trauma. She denies any true syncope / LOC.
Patient reports that she has been crawling on the floor at home for fear of passing out / falling.
She presented to the ED this evening for further evaluation.
Patient notes that her losartan dose has been decreased and then discontinued completely (3-4 weeks) due to low blood pressures.
She was on a brief course of steroids about one week ago for unclear reasons. (Rx by ENT whom she saw for her balance issues).
Patient denies any other recent changes in her medication regimen.
She complains of some urinary urgency, but no dysuria / frequency / etc.
Medical History
Past Medical History
Past Medical History: Reports Other
Additional Past Medical History:
Stage III Breast CA s/p Lumpectomy
Parkinson's Disease
Essential Hypertension
Hyperlipidemia
Medullary Thyroid CA s/p Thyroidectomy
Past Surgical History: Reports Other
Additional Past Surgical History:
Right Lumpectomy with Lymph Node Dissection
Thyroidectomy
Social History
Tobacco: Non-smoker
Alcohol: None
Drug: None
Family History
Family History: Not pertinent
Allergies / Home Medications
Allergies reflects when Allergies were last updated in [facility].
Home Medications with original date entered in [facility]
Allergy/Medication List:
Allergies
Allergy/AdvReac Type Severity Reaction Status Date / Time
Sulfa (Sulfonamide Allergy flu like Verified 10/07/24 20:37
Antibiotics) symptoms
Home Medications
rasagiline 1 mg tablet 1 mg PO HS PARKINSON 05/28/23
simvastatin 40 mg tablet 40 mg PO HS High Cholesterol 05/28/23
carbidopa ER 48.75 mg-levodopa 195 mg capsule,extended release (Rytary) 2 cap PO TID 10/08/24
letrozole 2.5 mg tablet 2.5 mg PO DAILY 10/08/24
levothyroxine 75 mcg tablet 75 mcg PO DAILY 10/08/24
Review of Systems
-
History Source: Patient
A 12 point ROS was completed and negative except as noted: Yes
Constitutional: Reports Fatigue; Denies Fever or Chills
Respiratory: Denies Cough or Trouble Breathing
Cardiac: Denies Chest Pain or Palpitations
Abdomen/GI: Denies Abdominal Pain, Nausea, Vomiting or Diarrhea
: Reports Urgency; Denies Dysuria, Frequency or Flank Pain
Musculoskeletal: Denies Joint Pain or Edema
Neurological: Reports Dizzy and Weakness; Denies Headache
Psych: Denies Depression or Anxiety
Physical Exam
Vital Signs
Vital Signs
Temp Pulse Resp BP Pulse Ox
97.3 F 114 18 170/99 99
10/07/24 20:32 10/07/24 20:32 10/07/24 20:32 10/08/24 05:00 10/08/24 05:15
Physical Exam
General: Other (69y F in no acute distress. Flat affect / masked facies.)
HEENT: Moist mucous membranes and PERRLA
Respiratory: Clear; No Wheezes, Rales or Rhonchi
Cardiac: S1/S2 and Regular Rhythm; No Murmur
GI: Soft, Non Tender, Non Distended and Normal Bowel Sounds
Musculoskeletal: No Clubbing, No Cyanosis and No Edema
Neuro: AO x 3 and Other (Mild stiffness / rigidity.)
Laboratory Results
-
10/07/24 20:52
10/07/24 20:52
Laboratory Results
Total Bilirubin 0.6 mg/dl (0.2-1.3) 10/07/24 20:52
AST 28 U/L (14-36) 10/07/24 20:52
ALT 11 U/L (0-35) 10/07/24 20:52
Alkaline Phosphatase 89 U/L (38-126) 10/07/24 20:52
Impression/Plan
-
A/P: Patient is a 69y F with PMH significant for Parkinson's disease and hypertension who presents to ED complaining of weakness and gait dysfunction.
Weakness
Gait Dysfunction
Lightheadedness
Parkinson's Disease
- Observe overnight for further evaluation and treatment.
- Check orthostatic BPs.
- Suspicious for orthostatic hypotension / symptoms related to Parkinson's.
- PT / OT evaluations.
- Continue current Parkinsonian med regimen without changes.
- Follow for improvement.
Possible UTI
- UA somewhat equivocal. Patient does complain of urgency.
- Continue IV abx for now and follow-up culture data.
Breast Cancer
- Continue letrozole.
Hypothyroidism
- Continue T4 supplementation.
Benign Hypertension
- Supine BP elevated in the ED.
- Recent decreased / discontinued losartan with guidance from PCP.
- Follow orthostatic signs as noted above.
- Adjust med regimen as needed.
DVT Prophylaxis: SCDs
Code Status: Full
--- NOTE | 2024-10-08 06:21 | PTCARENOTE ---
Pt received from ED to [facility]. Pt oriented to room and call fong.
[2024-10-08 08:54] LABS: TSH Reflex To Free T4 3.65 uIU/ml (0.47-4.68)
[2024-10-08] MEDS: NON-FORMULARY ITEM 2 CAP PO (09:13)
[2024-10-08] MEDS: SYNTHROID 75 MCG PO (09:13)
[2024-10-08 12:06] LABS: Glucose - Point of Care 92 mg/dl (70-99)
--- NOTE | 2024-10-08 12:49 | W.PN.HOSP.TC ---
Today's Communication/Plan
-
Discharge
Assessment / Plan
Assessment / Plan
Gen-AAOx3, NAD
HEENT-NC, AT, anicteric, clear oral mm
Neck-supple
CV-reg, no M, +S1/S2
Lungs-clear B/L
Abd-soft, NT, ND
Ext-no edema
Musculoskeletal-no cyanosis, clubbing
Skin-warm and dry
Neuro-grossly non-focal
Psych-calm, cooperative
Orthostatic hypotension -etiology unclear but differential diagnosis includes Parkinson's disease, autonomic neuropathy, medication related, etc.
Compression stockings ordered. Avoid vasodilators. Encourage hydration. May need abdominal binder. Would avoid midodrine given supine hypertension.
Recommend close follow-up with her neurologist after discharge. Discussed with patient.
Ambulatory dysfunction -due to Parkinson's disease, orthostatic hypotension, deconditioning. PT recommends home health. Case management informed me that patient declined VN.
Possible UTI -culture pending. Currently on ceftriaxone. Can discharge on empiric antibiotics with outpatient follow-up.
Essential hypertension -previously on losartan but discontinued due to orthostasis. Currently not on antihypertensives. Recommend follow-up closely with PCP.
Hypothyroidism -levothyroxine.
Hyperlipidemia -simvastatin.
Breast cancer
Full code
Dispo -anticipate discharge home this afternoon. Outpatient follow-up.
Anticipated Discharge: Today
Subjective/Interval History
-
Date of Service: October 08, 2024
Patient seen and examined. Feeling somewhat better. No new complaints.
Objective Data
-
Vital Signs:
Vital Signs
Temp Pulse Resp BP Pulse Ox
97.5 F 102 19 157/108 99
10/08/24 11:00 10/08/24 11:00 10/08/24 11:00 10/08/24 11:00 10/08/24 11:00
Review of Systems
-
History Source: Patient
All other systems: Reviewed and negative
[2024-10-08] MEDS: NON-FORMULARY ITEM PO (12:53)
--- NOTE | 2024-10-08 12:59 | W.DS.TRANS ---
DC Summary - Diagnostic Sales Specialist
-
Discharge Instructions:
Discharge Diagnosis/Procedures Orthostatic hypotension
Diet Regular
Activity With assistance
Driving Restrictions No driving
Bathing Restrictions None
Instructions:
Stand-Alone Forms:
Changes to Home Medications: No
Discharge Medications:
DC Medications w/original date entered in [facility]
rasagiline 1 mg tablet 1 mg PO HS PARKINSON 05/28/23
simvastatin 40 mg tablet 40 mg PO HS High Cholesterol 05/28/23
carbidopa ER 48.75 mg-levodopa 195 mg capsule,extended release (Rytary) 2 cap PO TID 10/08/24
ciprofloxacin HCl 500 mg tablet 500 mg PO BID #6 tabs 10/08/24
letrozole 2.5 mg tablet 2.5 mg PO DAILY 10/08/24
levothyroxine 75 mcg tablet 75 mcg PO DAILY 10/08/24
vancomycin 125 mg capsule 125 mg PO DAILY #4 caps 10/08/24
Home Medication Changes
Pending Results: No
[2024-10-08] MEDS: FEMARA 2.5 MG PO (13:22)
[2024-10-08] MEDS: FIRVANQ 125 MG PO (13:23)
--- NOTE | 2024-10-08 13:35 | CM ---
quantitative manager reviewed patient's chart and met with patient and patient was admitted under OBS, [employer] letter provided to patient, patient lives with spouse in a split level home, 6 steps in sis steps to kitchen and 6 steps to bathroom and bed room,
patient report that she is for discharge to home today, no needs.
PCP: Abigail Hernández
Pharmacy: [facility].
--- NOTE | 2024-10-08 15:21 | VATNOTE ---
left subq port deaccessed per protocol. Brisk blood return noted prior to.
== END 2024-10-08 16:33 | disposition home or self-care (01) ==
LOC: 4 WEST ACU 05:57
PROVIDERS: Student in an Organized Health Care Education/Training Program; ADMITTING PHYSICIAN Hospitalist; ATTENDING PHYSICIAN Hospitalist; EMERGENCY PHYSICIAN Student in an Organized Health Care Education/Training Program; FAMILY PHYSICIAN Physician Assistant Medical
DX: I95.1 Orthostatic hypotension (principal); Z11.52 Encounter for screening for COVID-19; I11.9 Hypertensive heart disease without heart failure; N39.0 Urinary tract infection, site not specified; E03.9 Hypothyroidism, unspecified; C50.919 Malignant neoplasm of unspecified site of unspecified female breast; R26.2 Difficulty in walking, not elsewhere classified; G20.A1 Parkinson's disease without dyskinesia, without mention of fluctuations
CPT/HCPCS: 76700; 80053; 81003; 81015; 82962; 84443; 85025; 87077; 87086; 87186; 87502; 87811; 93005; 96361; 96374; 97162; 97530; 99285; G0378

== ENCOUNTER → 2024-10-20 08:06 | Outpatient (REF) | payer MEDICARE, OTHER, SELFPAY | LOC: RAD 08:06 | PROVIDERS: ATTENDING PHYSICIAN Internal Medicine Cardiovascular Disease | DX: R19.7 Diarrhea, unspecified (principal); K92.1 Melena; R06.09 Other forms of dyspnea | CPT/HCPCS: 74177; 93306; 93356; Q9967 ==

== ENCOUNTER → 2024-11-22 11:51 | Outpatient (REF) | payer MEDICARE, OTHER, SELFPAY | LOC: HWRAD 11:51 | PROVIDERS: ATTENDING PHYSICIAN Internal Medicine Critical Care Medicine; FAMILY PHYSICIAN Physician Assistant Medical | DX: R91.8 Other nonspecific abnormal finding of lung field (principal) | CPT/HCPCS: 71250 ==

== ENCOUNTER → 2024-12-08 08:34 | Outpatient (REF) | payer MEDICARE, OTHER, SELFPAY ==
[2024-12-08 09:32] LABS: Hematocrit 39.4 % (37.0-47.0); Hemoglobin 12.7 g/dL (12.0-16.0); Mean Corp Hgb Conc. 32.2 g/dL (33.0-37.0); Mean Corpuscular Volume 90.2 fL (81.0-99.0); Nucleated Red Blood Cells % 0 %; Platelet Count 271 10^3/uL (130-400); Red Cell Dist. Width 15.3 % (11.5-14.5)
[2024-12-08 09:54] LABS: ALT (SGPT) < 10 U/L (0-35); AST (SGOT) 20 U/L (14-36); Albumin 4.8 g/dl (3.5-5.0); Alkaline Phosphatase 78 U/L (38-126); Blood Urea Nitrogen 24 mg/dl (7-17); Calcium 10.1 mg/dl (8.4-10.2); Carbon Dioxide 34 mmol/L (22-30); Chloride 102 mmol/L (98-107); Glucose 104 mg/dl (70-99); HDL Cholesterol 84 mg/dl; LDL Cholesterol, Calculated 76 mg/dl; Potassium 4.3 mmol/L (3.5-5.1); Sodium 138 mmol/L (135-145); Total Protein 7.6 g/dl (6.3-8.2); Very Low Density Lipoprotein 14 mg/dl (0-30); eGFR > 60.00
[2024-12-10 02:46] LABS: CA 27-29 17.8 U/mL (<=39.0)
== END ==
LOC: REG 08:34
PROVIDERS: ATTENDING PHYSICIAN Internal Medicine Hematology & Oncology; FAMILY PHYSICIAN Physician Assistant Medical; REFERRING PHYSICIAN Internal Medicine Cardiovascular Disease
DX: E78.5 Hyperlipidemia, unspecified (principal); C50.919 Malignant neoplasm of unspecified site of unspecified female breast
CPT/HCPCS: 36415; 80053; 80061; 82248; 85025; 86300

== ENCOUNTER → 2024-12-09 08:01 | Outpatient (REF) | payer MEDICARE, OTHER, SELFPAY | LOC: RCS 08:01 | PROVIDERS: ATTENDING PHYSICIAN Internal Medicine Cardiovascular Disease; FAMILY PHYSICIAN Physician Assistant Medical | DX: R06.09 Other forms of dyspnea (principal) | CPT/HCPCS: 78452; 93017; A9500; J2785 ==

== ENCOUNTER → 2025-02-17 14:51 | Outpatient (REF) | payer MEDICARE, OTHER, SELFPAY | LOC: PAVMRI 14:51 | PROVIDERS: ATTENDING PHYSICIAN Psychiatry & Neurology Neurology; FAMILY PHYSICIAN Physician Assistant Medical | DX: R41.3 Other amnesia (principal) | CPT/HCPCS: 70553; A9575 ==

== ENCOUNTER → 2025-03-01 09:56 | Outpatient (REF) | payer MEDICARE, OTHER, SELFPAY ==
[2025-03-01 11:30] LABS: Hematocrit 38.3 % (37.0-47.0); Hemoglobin 12.9 g/dL (12.0-16.0); Mean Corp Hgb Conc. 33.7 g/dL (33.0-37.0); Mean Corpuscular Volume 86.8 fL (81.0-99.0); Nucleated Red Blood Cells % 0 %; Platelet Count 237 10^3/uL (130-400); Red Cell Dist. Width 13.8 % (11.5-14.5)
[2025-03-01 12:00] LABS: ALT (SGPT) < 10 U/L (0-35); AST (SGOT) 22 U/L (14-36); Albumin 4.7 g/dl (3.5-5.0); Alkaline Phosphatase 75 U/L (38-126); Blood Urea Nitrogen 26 mg/dl (7-17); Calcium 9.5 mg/dl (8.4-10.2); Carbon Dioxide 32 mmol/L (22-30); Chloride 101 mmol/L (98-107); Glucose 105 mg/dl (70-99); Potassium 4.4 mmol/L (3.5-5.1); Sodium 139 mmol/L (135-145); Total Protein 7.3 g/dl (6.3-8.2); eGFR > 60.00
[2025-03-03 01:31] LABS: CA 27-29 13.9 U/mL (<=39.0)
== END ==
LOC: REG 09:56
PROVIDERS: ATTENDING PHYSICIAN Internal Medicine Hematology & Oncology; FAMILY PHYSICIAN Physician Assistant Medical
DX: C50.411 Malignant neoplasm of upper-outer quadrant of right female breast (principal); M21.371 Foot drop, right foot; M85.80 Other specified disorders of bone density and structure, unspecified site; Z13.820 Encounter for screening for osteoporosis; C79.51 Secondary malignant neoplasm of bone; C78.7 Secondary malignant neoplasm of liver and intrahepatic bile duct
CPT/HCPCS: 36415; 80053; 82248; 85025; 86300

== ENCOUNTER → 2025-03-23 13:22 | Outpatient (REF) | payer MEDICARE, OTHER, SELFPAY ==
[2025-03-23 13:40] VITALS: BP 142/88; BP_SYST 88
[2025-03-23 14:22] VITALS: BP 157/90; BP_SYST 85
== END ==
LOC: RADI 13:22
PROVIDERS: ATTENDING PHYSICIAN Internal Medicine Hematology & Oncology; FAMILY PHYSICIAN Physician Assistant Medical
DX: Z45.2 Encounter for adjustment and management of vascular access device (principal); C50.411 Malignant neoplasm of upper-outer quadrant of right female breast
CPT/HCPCS: 36590; 77001